=== PATIENT | female | born 1990 | race Caucasian/White ===

== ENCOUNTER 2024-06-16 19:43 | Emergency (ER) | payer OTHER, SELFPAY ==
[2024-06-16] VITALS (8 sets, daily range): BP systolic 97–131; BP diastolic 56–88; PULSE 64–100; RESP 11–18; TEMP 36.6–36.8; O2SAT 95–97; BMI 44.6
--- NOTE | 2024-06-16 19:46 | ECG_ITS ---
APPROVED REPORT Exam: Resting ECG HR:82 bpm ECG Measurements Heart Rate 82 AXES UT 162 P 55 QRSd 95 QRS 3 QT 389 T 11 QTc 428 Conclusion SINUS RHYTHM Nonspecific ST/T wave changes without acute STEMI. Electronically signed by : KEN MCKINLEY, 06/16/2024 22:42:30
--- NOTE | 2024-06-16 19:51 | CT_ITS ---
PROCEDURE INFORMATION: Exam: CT Neck With Contrast Exam date and time: 06/16/2024 9:18 PM Age: 33 years old Clinical indication: Neck pain; Additional info: Neck pain/swelling, l>r TECHNIQUE: Imaging protocol: Computed tomography of the neck with contrast. Radiation optimization: All CT scans at this facility use at least one of these dose optimization techniques: automated exposure control; mA and/or kV adjustment per patient size (includes targeted exams where dose is matched to clinical indication); or iterative reconstruction. Contrast material: ISOVUE; Contrast volume: 75 ml; Contrast route: IV; COMPARISON: CT SOFT TISSUE NECK W CON 06/16/2024 9:18 PM FINDINGS: Salivary glands: Normal. Glands are normal in size. Pharynx: Unremarkable. No significant tonsillar enlargement. Larynx: Unremarkable. Epiglottis is normal. Thyroid: 3 cm hypodense mass in the left lobe of the thyroid gland. Trachea: Visualized trachea is unremarkable. Lungs: Unremarkable as visualized. Lymph nodes: Unremarkable. No lymphadenopathy. Bones/joints: Unremarkable. No acute fracture. Soft tissues: Unremarkable. No significant soft tissue swelling. IMPRESSION: No acute findings. 3 cm hypodense mass left lobe of the thyroid gland. Recommend outpatient nonemergent ultrasound to further characterize. COMMENTS: Consistent with the [employer]'s Incidental Findings Committee white paper (J Am Audrey Radiol 2015): In patients under 35 years old with an incidental thyroid nodule equal to or greater than [address], MRI or extrathyroidal US, further evaluation with dedicated thyroid US is recommended for patients with normal life expectancy and without comorbidities. For smaller nodules without suspicious features, no further evaluation or follow up is recommended.
--- NOTE | 2024-06-16 19:51 | CT_ITS ---
PROCEDURE INFORMATION: Exam: CTA Chest With Contrast Exam date and time: 06/16/2024 9:22 PM Age: 33 years old Clinical indication: Pain; Chest pressure; Additional info: Chest pain, presyncope TECHNIQUE: Imaging protocol: Computed tomographic angiography of the chest with contrast. Exam focused on the arteries. 3D rendering (Not supervised by radiologist): MIP and/or 3D reconstructed images were created by the technologist. Radiation optimization: All CT scans at this facility use at least one of these dose optimization techniques: automated exposure control; mA and/or kV adjustment per patient size (includes targeted exams where dose is matched to clinical indication); or iterative reconstruction. Contrast material: ISOVUE; Contrast volume: 70 ml; Contrast route: INTRAVENOUS (IV); COMPARISON: CT SOFT TISSUE NECK W CON 06/16/2024 9:18 PM FINDINGS: Pulmonary arteries: Normal. No pulmonary emboli. Aorta: Unremarkable. No aortic aneurysm. No aortic dissection. Thyroid: 4.5 cm cystic left thyroid mass. Lungs: Unremarkable. No consolidation. No masses. Pleural spaces: Unremarkable. No pneumothorax. No pleural effusion. Heart: Unremarkable. No cardiomegaly. No pericardial effusion. Lymph nodes: Unremarkable. No enlarged lymph nodes. Bones/joints: Unremarkable. No acute fracture. Soft tissues: Unremarkable. IMPRESSION: No pulmonary embolus. No aortic aneurysm or dissection. COMMENTS: Consistent with the [employer]'s Incidental Findings Committee white paper (J Am Audrey Radiol 2015): In patients under 35 years old with an incidental thyroid nodule equal to or greater than [address], MRI or extrathyroidal US, further evaluation with dedicated thyroid US is recommended for patients with normal life expectancy and without comorbidities. For smaller nodules without suspicious features, no further evaluation or follow up is recommended.
--- NOTE | 2024-06-16 19:53 | ED_ITS ---
Discharge Plan Disposition Patient Disposition: Home, Self-Care Condition: Good Referrals Follow up/Referrals: Roque Clayton MD [Physician] - See instructions Provider,MD Galindo [Primary Care Provider] - See instructions Jonathan Wayne MD [Staff Physician] - See instructions Activity Restrictions/Add. Instructions Additional Instructions/Restrictions: You were evaluated in the emergency department today. Your CT scan is concerning for a mass of your thyroid gland, for which I recommend close follow- up with ENT. I have provided you with information for ENT clinic here. You will need to contact them to schedule an appointment. Your chest pain workup is reassuring at this time. I am still providing with information for cardiology to follow-up with if you continue having symptoms. Return to the emergency department right away for new or worsening symptoms. I also recommend very close follow-up with your primary care provider. Clinical Impressions Clinical Impression: Mass of thyroid gland, Chest pain Stand Alone Forms Stand Alone Forms: Work/School Release Instructions Patient Instructions: DI for Atypical Chest Pain, DI for Thyroid Nodule Print Language Print Language: Amharic Discharge ED Provider: Lilly Judd [facility] General Chief Complaint: Chest Pain Stated Complaint: Chest Pain Time Seen by Provider: 06/16/24 19:46 Mode of Arrival: Ambulatory Source of Information: Patient Limitations: No Limitations Description of Symptoms (Recalled from ER Triage Doc. by RN): pt presents with c/o intermittent chest pain that radiates into the left side of her neck and down her arm with associated tingling to fingers. Pt reports I've been having this feeling of a knot to the side of my neck for awhile now Pt reports associated dizziness and soa. Denies N/V History of Present Illness HPI narrative: This patient is a 33-year-old female with history of obesity presenting to the emergency department for evaluation with concern for left-sided neck pain and swelling, chest pain, presyncope. Patient states that she had been having swelling and pain on the left side of her neck for a little bit with some associated tingling in her fingers. She is not sure exactly how long. She notes that she has been having intermittent chest pain that she feels like the pain radiates from her neck. She was at [place] emergency department during clinical hours when she suddenly felt that she was going to pass out after experiencing some chest pain. She states that that prompted her to drive over here from [place], and she had 4 more episodes like that on the way feeling like she was going to pass out. She denies any known medical problems. No recent illnesses such as fever, cough, congestion, abdominal pain, vomiting, or other concerns. She does not take any medications or control. Related Data Allergies Allergy/AdvReac Type Severity Reaction Status Date / Time INGREDIENT: NO KNOWN - NO Allergy Unknown Uncoded 04/10/17 15:04 KNOWN DRUG ALLERGY [facility] Disclaimer: The information contained in this section may have been updated after the patient was seen, as this information can be updated by other users. Social History Smoking Status: Current every day smoker alcohol intake: never current occupational status: employed Travel in the last 8 weeks: None ROS Obtained: Yes All systems reviewed & no additional complaints except as documented Physical Exam General General appearance: alert, in no apparent distress, anxious and obese Head Head exam: atraumatic and normocephalic Eye Eye exam: Present normal appearance, PERRL and EOMI ENT ENT exam: Present normal oropharynx, mucous membranes moist and normal external ear exam Neck Neck exam: Present full ROM, trachea midline and other (palpable mass L neck. No stridor, drooling, trismus, or evidence of airway compromise. No increased work of breathing.) Chest Chest inspection: Present normal inspection and symmetric chest wall rise; Absent tenderness Respiratory Respiratory exam: Present normal lung sounds bilaterally; Absent respiratory distress, wheezes, stridor or accessory muscle use Cardiovascular Cardiovascular exam: Present regular rate and normal rhythm Abdominal Exam Abdominal exam: Present soft; Absent distention, tenderness or guarding Extremities Exam Extremities exam: Present normal inspection, full ROM and normal capillary refill; Absent tenderness or edema Back Exam Back exam: Present normal inspection and full ROM; Absent tenderness Neurological Exam Neurological exam: Present alert, oriented X3, CN II-XII intact and normal gait; Absent motor sensory deficit Psychiatric Psychiatric exam: Present anxious Skin Skin exam: Present warm and dry HEART Score HEART Score HEART Score assessment performed?: Yes History (anamnesis): Slightly suspicious ECG: Non-specific disturbance Age: <45 years Risk factors: 1-2 risk factors Troponin: </= normal limit HEART Score: 2 Critical Care Critical Care Time Critical Care Time: No Medical Decision Making Pepe Inquiry Pt receiving controlled substance: No Vital Signs Vital Signs: 06/16/24 19:44 06/16/24 20:00 06/16/24 20:30 Temperature 98.3 F Temperature Source Oral Pulse Rate 64 81 Pulse Rate [Radial] 100 H Respiratory Rate 18 16 13 Blood Pressure 124/86 113/68 Blood Pressure [Right Arm] 131/88 Blood Pressure Mean [Right Arm] 102 02 Sat by Pulse Oximetry 95 96 95 Oxygen Delivery Method Room Air Room Air Room Air 06/16/24 21:00 06/16/24 21:40 06/16/24 22:01 Temperature Temperature Source Pulse Rate 82 65 75 Pulse Rate [Radial] Respiratory Rate 16 12 Blood Pressure 113/63 97/56 L Blood Pressure [Right Arm] Blood Pressure Mean [Right Arm] 02 Sat by Pulse Oximetry 95 95 Oxygen Delivery Method Room Air Room Air 06/16/24 22:30 06/16/24 23:00 06/16/24 23:00 Temperature 97.9 F Temperature Source Pulse Rate 69 64 Pulse Rate [Radial] Respiratory Rate 11 L 11 L 12 Blood Pressure 107/69 L 114/72 114/72 Blood Pressure [Right Arm] Blood Pressure Mean [Right Arm] 02 Sat by Pulse Oximetry 96 96 Oxygen Delivery Method Room Air Room Air Room Air Lab Data Labs: Lab Results 06/16/24 19:52: WBC 6.6, RBC 4.92, Hgb 12.0 L, Hct 37.8, MCV 76.8 L, MCH 24.4 L, MCHC 31.7 L, RDW 14.0, Plt Count 325, MPV 9.0, Neut % (Auto) 55.2, Lymph % (Auto) 36.4, [place] % (Auto) 6.2, Eos % (Auto) 1.4, Baso % (Auto) 0.5, Neut # (Auto) 3.7, Lymph # (Auto) 2.4, [place] # (Auto) 0.4, Eos # (Auto) 0.1, Baso # (Auto) 0.0, ESR 101 H, Sodium 137, Potassium 3.6, Chloride 98, Carbon Dioxide 31 H, Anion Gap 11.6, BUN 15, Creatinine 0.80, Estimated Creat Clear 97, Estimated GFR 83, Est GFR ( Amer) 100, Glucose 116 H, Calcium 9.1, Total Bilirubin 0.2, AST 44 H, ALT 41, Alkaline Phosphatase 93, Troponin I < 0.01, C-Reactive Protein 14.1 H, NT-Pro-B Natriuret Pep < 20.0, Total Protein 8.3 H, Albumin 4.5, Globulin 3.8 H, Albumin/Globulin Ratio 1.2, Lipase 61, TSH 2.22, Thyroxine (T4) 11.1 H, Serum HCG, Qual Negative, HIV Ag/Ab Combo Qual Negative 06/16/24 22:00: Troponin I < 0.01 06/16/24 19:52 06/16/24 19:52 Response Orders (Tests/Meds): ED MEDICATIONS Discontinued Medications Generic Name Dose Route Start Last Admin Trade Name Freq PRN Reason Stop Dose Admin Acetaminophen 1,000 mg 06/16/24 19:52 06/16/24 20:03 Acetaminophen 1,000mg/100ml Vial IV 06/16/24 19:53 1,000 mg ONCE ONE Administration Iopamidol 145 ml 06/16/24 21:29 06/16/24 21:29 Iopamidol-370 (76%);100ml Bottle IV 06/16/24 21:30 145 ml ONCE ONE Administration Ketorolac Tromethamine 15 mg 06/16/24 19:52 06/16/24 20:03 Ketorolac 30mg/Ml Vial IV 06/16/24 19:53 15 mg ONCE ONE Administration Sodium Chloride 50 ml 06/16/24 21:29 06/16/24 21:29 0.9 % Sodium Chloride 50 Ml Vial IV 06/16/24 21:30 50 ml ONCE ONE Administration Sodium Chloride 10 ml 06/16/24 21:29 06/16/24 21:29 Sodium Chloride 0.9% 10ml Syr (Rad Only) IV 06/16/24 21:30 10 ml ONCE ONE Administration ORDERS Category Date Time Status CT angio chest PE protocol Stat Cat Scan 06/16/24 19:[address] soft tissue neck w con Stat Cat Scan 06/16/24 19:51 Completed BNP [NT Pro Brain Natriuretic Pep.] Stat Lab 06/16/24 19:52 Completed CRP [C-Reactive Protein] Stat Lab 06/16/24 19:52 Completed Complete Blood Count Auto Diff Stat Lab 06/16/24 19:52 Completed Comprehensive Metabolic Panel Stat Lab 06/16/24 19:52 Completed ESR [Erythrocyte Sedimentation Rate] Stat Lab 06/16/24 19:52 Completed HIV Combo Stat Lab 06/16/24 19:52 Completed Hepatitis C Ab Qual. W/ RFX Stat Lab 06/16/24 19:52 Received Lipase Stat Lab 06/16/24 19:52 Completed Serum [HCG Qualitative, Serum] Stat Lab 06/16/24 19:52 Completed T4 (Thyroxine) Stat Lab 06/16/24 19:52 Completed TSH [Thyroid Stimulating Hormone] Stat Lab 06/16/24 19:52 Completed Trop I [Troponin I] Stat Lab 06/16/24 19:52 Completed Troponin I Q3H Lab 06/16/24 22:00 Completed Troponin I Q3H Lab 06/17/24 02:00 Ordered ECG Data Tracing #1: Attestation: I reviewed this ECG and interpreted as documented below: ECG Narrative: Normal sinus rhythm with a ventricular rate of [address]/T wave changes without acute STEMI. Normal intervals. ECG initial impression date: 06/16/24 ECG initial impression time: 19:50 Tracing #2: Attestation: I reviewed this ECG and interpreted as documented below: ECG Narrative: Normal sinus rhythm with a ventricular rate of [address]/T wave changes not significantly changed from prior. No STEMI. ECG initial impression date: 06/16/24 ECG initial impression time: 10:05 MDM Narrative Medical Decision Narrative: In summary, this patient is a 33-year-old female presenting to the Emergency Department for evaluation of left-sided neck pain/swelling, presyncope and chest pain. Differential diagnoses considered include but are not limited to ACS, dysrhythmia, hyperthyroidism, PE, thyroid mass among others. Ruling out the most morbid conditions drove assessment. It should be noted patient's history includes obesity which is not at goal therapy. This complicates all aspects of care by increasing patient's risk for morbidity. On exam, the patient is anxious appearing. She has normal vital signs on cardiac telemetry. She has a palpable left neck mass without drooling, trismus, stridor. No evidence of airway compromise. Cardiopulmonary exam is reassuring. EKG was obtained that demonstrated nonspecific ST/T wave changes without acute STEMI. Workup included CBC, CMP, troponin, TSH, T4, lipase, CT soft tissue neck, CTA PE protocol. She was given IV Toradol and acetaminophen for symptomatic improvement. I independently interpreted CT scan prior to the radiologist read and noted left thyroid mass, no PE noted. Please see their read for final interpretation. Labs were obtained that demonstrated reassuring CBC with no significant leukocytosis, reassuring chemistry with negative troponins x 2. Thyroid studies demonstrate a T4 that is right at the upper limits of normal, normal TSH . On reassessment, patient had good improvement after administration of interventions above. She is resting comfortably with no airway compromise, normal vitals on cardiac telemetry. EKG x 2 unchanged, troponins x 2 negative. Workup today is only concerning for a newly diagnosed thyroid mass. I feel she is appropriate for discharge home with close follow-up with ENT as well as primary care. I also gave her information for cardiology follow-up given her chest pain, though it could be referred pain from this thyroid lesion causing some mass effect in her neck. I gave her very strict return precautions and she was discharged after all questions were answered.
[2024-06-16] MEDS: KETOROLAC 30MG/ML VIAL 15 MG IV (20:03)
[2024-06-16] MEDS: ACETAMINOPHEN 1,000MG/100ML VIAL 1000 MG IV (20:03)
[2024-06-16 20:24] LABS: Basophils % 0.5 % (0.1-2.0); Eosinophils # 0.1 K/mm3 (0.0-0.4); Eosinophils % 1.4 % (0.1-12.0); Hematocrit 37.8 % (37.0-47.0); Lymphocytes # 2.4 K/mm3 (0.7-4.5); Lymphocytes % 36.4 % (10-50); Mean Corpuscular HGB Conc 31.7 g/dL (31.8-35.4); Mean Corpuscular Hemoglobin 24.4 pg (27.0-31.2); Mean Corpuscular Volume 76.8 fl (81-99); Monocytes # 0.4 K/mm3 (0.1-1.0); Monocytes % 6.2 % (1.7-9.3); Neutrophils # 3.7 K/mm3 (1.8-7.8); Neutrophils % 55.2 % (37.0-80.0); Platelet Count 325 K/mm3 (142-424); Red Blood Count 4.92 M/mm3 (4.20-5.40); White Blood Count 6.6 K/mm3 (4.8-10.8)
[2024-06-16 20:33] LABS: Albumin Level 4.5 g/dl (3.5-5.0); Chloride 98 mmol/L (98-107); Potassium 3.6 mmoL/L (3.5-5.1); Sodium 137 mmol/L (136-145)
[2024-06-16 20:36] LABS: Alanine Aminotransferase 41 U/L (12-78); Albumin/Globulin Ratio 1.2 (1.1-1.8); Alkaline Phosphatase 93 U/L (38-126); Anion Gap 11.6 mEq/L (5-15); Aspartate Amino Transferase 44 U/L (14-36); Bilirubin,Total 0.2 mg/dl (0.2-1.3); Blood Urea Nitrogen 15 mg/dl (7-17); Carbon Dioxide 31 mmol/L (22.0-30.0); Creatinine Clearance Estimated 97 mL/min (50-200); Estimated Glomerular Filt Rate 83 ml/min (>60); GFR (African American) 100 ML/MIN (>60); Globulin 3.8 g/dL (1.3-3.2); Lipase 61 U/L (23-300); Total Protein,Serum 8.3 g/dl (6.3-8.2)
[2024-06-16 20:37] LABS: Calcium 9.1 mg/dl (8.4-10.2); Glucose 116 mg/dl (74-100)
[2024-06-16 20:42] LABS: C-Reactive Protein 14.1 mg/L (0-4)
[2024-06-16 20:50] LABS: NT Pro Brain Natriuretic Pep. < 20.0 pg/mL (0-125)
[2024-06-16 20:54] LABS: Troponin I < 0.01 ng/ml (0.00-0.034)
[2024-06-16 20:57] LABS: T4 (Thyroxine) 11.1 ug/dl (5.53-11.0)
[2024-06-16 21:03] LABS: HCG Qualitative, Serum Negative (Negative)
[2024-06-16 21:10] LABS: Thyroid Stimulating Hormone 2.22 uIU/mL (0.465-4.68)
[2024-06-16 21:22] LABS: HIV Combo NEGATIVE (Negative)
[2024-06-16 21:25] LABS: Erythrocyte Sedimentation Rate 101 mm/hr (0-20)
[2024-06-16] MEDS: IOPAMIDOL-370 (76%);100ML BOTTLE 145 ML IV (21:29)
[2024-06-16] MEDS: 0.9 % SODIUM CHLORIDE 50 ML VIAL IV (21:29)
[2024-06-16] MEDS: SODIUM CHLORIDE 0.9% 10ML SYR (RAD ONLY) 10 ML IV (21:29)
--- NOTE | 2024-06-16 21:52 | ECG_ITS ---
APPROVED REPORT Exam: Resting ECG HR:73 bpm ECG Measurements Heart Rate 73 AXES GA 165 P 65 QRSd 98 QRS 20 QT 408 T 8 QTc 434 Conclusion SINUS RHYTHM MODERATE T-WAVE ABNORMALITY, CONSIDER ANTERIOR ISCHEMIA [-0.1+ mV T-WAVE IN V3/V4] ABNORMAL ECG No STEMI Electronically signed by : SIRISHA SUERO, 06/17/2024 06:48:24
[2024-06-16 22:49] LABS: Troponin I < 0.01 ng/ml (0.00-0.034)
[2024-06-17 03:28] LABS: Hepatitis C Ab Qual. W/ RFX NEGATIVE (Negative)
== END 2024-06-16 23:09 | disposition home or self-care (01) ==
PROVIDERS: Emergency Provider Emergency Medicine
DX: R07.9 Chest pain, unspecified (principal); M54.2 Cervicalgia; R22.1 Localized swelling, mass and lump, neck; R55 Syncope and collapse; Z72.0 Tobacco use
CPT/HCPCS: 70491; 71275; 80053; 83690; 83880; 84436; 84443; 84484; 84703; 85025; 85651; 86140; 86803; 87389; 93005; 96374; 96375; 99285; J0131; J1885; Q9967

== ENCOUNTER 2024-06-19 16:00 | Outpatient (CLI) | payer OTHER, SELFPAY ==
[2024-06-19 20:41] LABS: Total Iron Binding Capacity 416 ug/dL (265-497)
[2024-06-19 21:08] LABS: Ferritin 50.8 ng/ml (6.24-137)
[2024-06-19 21:38] LABS: Iron 76 ug/dL (37-170)
[2024-06-19 23:05] LABS: Hemoglobin A1C 5.3 % (4.0-6.0)
== END 2024-06-19 23:59 | disposition home or self-care (01) ==
LOC: LAB.DROPOF 06-20 14:23
PROVIDERS: PCP Family Medicine; Visit Provider Family Medicine
DX: D64.9 Anemia, unspecified (principal); E07.9 Disorder of thyroid, unspecified
CPT/HCPCS: 82728; 83036; 83540; 83550

== ENCOUNTER 2024-06-25 08:20 | Outpatient (CLI) | payer OTHER, SELFPAY ==
--- NOTE | 2024-06-25 08:21 | US_ITS ---
FINAL REPORT CLINICAL HISTORY: thyroid mass - [facility] -- LT THYROID NODULE FINDINGS: Ultrasound guided thyroid biopsy. HISTORY: Left thyroid mass. Attending radiologist: Dr. Rodas Physician Lift Driver: Chad Hudson PA-C PROCEDURE: After informed consent was obtained and a time-out was performed, the patient was prepped and draped in usual sterile fashion over the left neck. Utilizing local anesthesia and sterile technique with a 25-gauge needle, access to lesion was oobtained under direct ultrasound guidance. Initially, the mass was aspirated with retrieval of approximately 10 mL of dark fluid. In addition, 4 passes were made under direct ultrasound guidance. The patient received no conscious sedation. The patient tolerated procedure well and left the department in good condition. IMPRESSION: Status post ultrasound guided biopsy of thyroid without immediate complication. Films reviewed , interpreted and dictated by Dr. Rodas. Transcribed by Chad Castano PA-C. Reviewed, Interpreted and Dictated by Sixto Rodas MD Transcribed by COLIN Charles Authenticated and [facility]
--- NOTE | 2024-06-25 08:36 | US_ITS ---
FINAL REPORT TECHNIQUE: Real-time grayscale and color ultrasound of the thyroid was performed. CLINICAL HISTORY: evaluation of mass seen on CT scan COMPARISON: CT neck 06/17/2024 FINDINGS: The right thyroid lobe is normal in size measuring 52 x 14 x 16 mm. The left thyroid lobe is significantly enlarged due to underlying mass and measures 57 x 34 x 36 mm. The isthmus measures 3 mm. The parenchyma is normal in echotexture.. Nodules: Right 7 mm isoechoic TR 3 nodule. Left predominantly cystic mass measuring 43 mm with debris and thickened septations. Although technically a TR 2 lesion, given thickened septations ultrasound directed aspiration is recommended. IMPRESSION: Dominant mass left lobe of the thyroid, likely benign but with complex features. Ultrasound directed FNA recommended. Reviewed, Interpreted and Dictated by Sixto Rodas MD Transcribed by Grecia Bernard Authenticated and . [facility]
== END 2024-06-25 23:59 | disposition home or self-care (01) ==
LOC: RAD 08:21
PROVIDERS: PCP Family Medicine; Visit Provider Family Medicine
DX: E07.9 Disorder of thyroid, unspecified (principal)
CPT/HCPCS: 76536; 76942

== ENCOUNTER 2024-07-02 07:24 | Outpatient (CLI) | payer OTHER, SELFPAY ==
--- NOTE | 2024-07-02 | CA_ITS ---
APPROVED REPORT Exam: Exercise Treadmill Technologist: Ela Tony Ht: 5 ft 7 in Wt: 277 lbs BSA: 2.32 m2 HR: 76 bpm BP: 131/80 mmHg Medical History Medical History: Smoking Allergies: Penicillin, Sulfa Cardiac Risk Factors: Smoking Stress Test Details Test: Exercise stress testing was performed using a Alonso protocol. HR Resting HR: 76 bpm Max Heart Rate (APMHR): 187 bpm Max HR Achieved: 165 bpm Target HR (85% APMHR): 159 bpm % of APMHR: 88 Recovery HR: 101 bpm BP Resting BP: 131.0/80.0 mmHg Max BP: 175.0/90.0 mmHg Recovery BP: 125.0/89.0 mmHg ECG Clinical Highest Stage Achieved: Stage 3: 3.4 mph at 14% grade. Stress ECG Conclusion Pt had no symptoms Occasional PAC, PVC <1mm ST change noted CONCLUSION No ischemia at peak stress on ECG Myoview images reported separately Electronically signed by : Allison Wayne MD 07/06/2024 20:50:38
--- NOTE | 2024-07-02 07:25 | NM_ITS ---
APPROVED REPORT Exam: Nuclear Stress Test Indication: tob use, c.p., sob, palpitations, fatigue Patient Location: Outpatient Stress Tech: Ela Tony CT Tech:Tatum Blanchard [place] (R)(N)(M) Ht: 5 ft 7 in Wt: 285 lbs Bra Size: dd HR: 76 bpm BP: 131/80 mmHg BSA: 2.35 m2 TID: 1.31 BMI: 44.6 History: tob use, c.p., sob, palpitations, fatigue Procedure: Patient exercised on Alonso protocol 6:30 minutes and sec, resting heart rate 76 bpm, resting blood pressure 131/80 mmHg, with exercise maximum heart rate achived was 170 bpm which is 90 % of the maximum predicted heart rate and blood pressure was 169/90 mmHg. Test was stopped due to fatigue. Patient denied any complaint of chest pain. Patient has fair exercise capacity, achieved 7.1 METs of workload on treadmill, the blood pressure response to exercise was normal. Cardiac Stress and Resting SPECT Images: Cardiac Stress and Resting SPECT images were obtained using technetium 99m Myoview 29.7 mCi stress and 10.24 mCi at rest. Resting and stress imaging in supine and prone positions demonstrate no evidence of fixed or reversible perfusion defects. There is increase in transient ischemic dilatation ratio (TID 1.31), suggestive of possible multivessel disease or balanced ischemia. Gated imaging demonstrates normal global and regional LV systolic function. LVEF is calculated at 56%. Conclusion: No evidence of fixed or reversible perfusion defects. There is increase in transient ischemic dilatation ratio (TID 1.31), suggestive of possible multivessel disease or balanced ischemia. Gated imaging demonstrates normal global and regional LV systolic function. LVEF is calculated at 56%. In the setting of presence of TID on nuclear stress testing, but with otherwise normal LV systolic function (and considering the patient's young age), further evaluation noninvasively with CCTA to rule out multivessel disease is suggested prior to proceeding with invasive coronary angiography. Electronically signed by : Allison Wayne MD 07/06/2024 20:15:13
[2024-07-02] MEDS: ISOTOPE MYOVIEW (PER STUDY) 1 DOSE IV (10:15)
[2024-07-02] MEDS: SODIUM CHLORIDE 0.9% 10ML SYR (RAD ONLY) 10 ML IV ×2 (10:15)
== END 2024-07-02 23:59 | disposition home or self-care (01) ==
LOC: RAD 07:25
PROVIDERS: PCP Family Medicine; Visit Provider Family Medicine
DX: R07.9 Chest pain, unspecified (principal)
CPT/HCPCS: 78452; 93017; 93018; A9502

== ENCOUNTER 2024-07-14 08:57 | Outpatient (CLI) | payer OTHER, SELFPAY ==
[2024-07-14 20:55] LABS: C-Reactive Protein 41.4 mg/L (0-4)
[2024-07-14 21:03] LABS: Free T4 (Free Thyroxine) 2.35 ng/dl (0.78-2.19)
[2024-07-14 21:19] LABS: Thyroid Stimulating Hormone 0.08 uIU/mL (0.465-4.68)
[2024-07-14 23:06] LABS: 25-OH Vitamin D, Total 30.4 ng/mL (30-100)
[2024-07-18 19:10] LABS: Rheumatoid Factor IGA < 7 U (<7)
== END 2024-07-14 23:59 | disposition home or self-care (01) ==
LOC: LAB.DROPOF 07-15 14:20
PROVIDERS: PCP Family Medicine; Visit Provider Family Medicine
DX: R53.83 Other fatigue (principal); M25.50 Pain in unspecified joint; R94.39 Abnormal result of other cardiovascular function study; E03.9 Hypothyroidism, unspecified
CPT/HCPCS: 82306; 84439; 84443; 86140; 86431

== ENCOUNTER 2024-07-16 07:28 | Outpatient (CLI) | payer OTHER, SELFPAY ==
[2024-07-16 08:00] VITALS: BP 118/68; PULSE 74; RESP 17; O2SAT 98
[2024-07-16 08:15] VITALS: BMI 43.4
[2024-07-16] MEDS: METOPROLOL TARTRATE 50MG TABLET PO (08:25)
[2024-07-16] MEDS: IVABRADINE HCL 7.5MG TABLET PO (08:25)
--- NOTE | 2024-07-16 08:30 | CT_ITS ---
APPROVED REPORT Government Relations Director: CLINICAL INDICATION Chest Pain TECHNIQUE Image Acquisition: A 128 slice MDCT scanner (grabHaloa View) was used for data acquisition. A noncontrast coronary calcium scan was performed. A CT attenuation threshold of 130 Hounsfield units (HU) was used for the detection of calcium in contiguous voxels of 1 sq mm in area to be counted as individual lesions. Bolus tracking in the ascending aorta with a threshold of 180 HU was performed. Immediately afterwards, ECG synchronized cardiac CT was then performed from the cardiac base to apex using retrospective gating with ECG tube current modulation. A total of 85 mL of Isovue 370 mg/mL contrast medium was administered at 5 mL/sec followed by a saline flush using a biphasic injection protocol. A tube voltage of 120 KVp was used. The patient received the following medications prior to the cardiac CT. 50 mg of oral metoprolol 15 mg of oral ivabradine 0.8 mg of sublingual nitroglycerin The average heart rate at the time of acquisition was 67 bpm and regular. Image Reconstruction Transaxial images were reconstructed at 0.67 mm slide thickness. Data was reviewed interactively on an advanced workstation capable of 2 and 3-dimensional displays in all conventional reconstruction formats, including multiplanar reformations, maximum intensity projections, curved multiplanar reformations, and volume rendered reconstructions. When applicable, selected routine images describing the relevant coronary anatomy and pathology were saved and sent to PACS. Complications None Technical Quality Overall image quality was good. Coronary artery opacification was adequate. Total DLP (Dose-Length Product) is 1380.4 mGy-cm. The reported value represents the total of one or more individual components during the CT acquisition of this date and at this time, and as such, the same value may appear in more than one CT report depending on the interpreting/reporting physicians. COMPARISON None FINDINGS CT Coronary Calcium Scoring LMA (Left Main Artery) = 0 LAD (Left Anterior Descending) = 0 LCX (Left Coronary Circumflex) = 0 RCA (Right Coronary Artery) = 0 Total Calcium Score = 0 using the AJ-130 method. The interpretation of the calcium heart score is based on the following continuum*: 0 = no calcified plaque detected (risk of coronary artery disease is very low ??? less than 5%) 1-10 = calcium detected in extremely minimal levels (risk of coronary diseases is still low ??? less than 10%) 11-100 = mild levels of plaque detected with certainty (mild or minimal narrowing of heart arteries is likely) 101-400 = definite,at least moderate levels of plaque detected (relatively high risk of a heart attack within 3-5 years) >401-999 = extensive levels of plaque detected (high risk of heart attack, high levels of vascular disease are present, high likelihood of at least one significant coronary narrowing) *The calcium heart score quantifies the burden of coronary calcification/plaque in the coronary arteries. The calcium heart score is not able to evaluate the presence or burden of non-calcified (i.e. soft) plaque. There is no identifiable calcification in the aortic valve, mitral annulus or mitral valve, pericardium, or myocardium. Coronary CT Angiography The coronary arterial system is right dominant. Quantitative Stenosis Grading: Left Main (LM): The left main originates normally from the left sinus of Valsalva. The LM bifurcates into the left anterior descending artery and left circumflex artery. The LM is patent with no evidence of atherosclerosis. Left Anterior Descending (LAD) and Diagonal Branches: The LAD gives off 3 diagonal branch(es). The LAD and its branches are patent with no evidence of atherosclerosis. There is no evidence of LAD-myocardial bridge. Left Circumflex (LCX) and Obtuse Marginals (OM): The LCX gives off 1 Obtuse Marginal (OM) branch(es). The LCX and its branches are patent with no evidence of atherosclerosis. Right Coronary Artery (RCA): The RCA originates normally from the right sinus of Valsalva. The RCA gives off a posterior descending artery (PDA) and posterolateral (PL) branches. The RCA and its branches are patent with no evidence of atherosclerosis. Non-Coronary Cardiac Findings: Analysis of the left ventricular (LV) structure and function was performed after 3-D reconstruction of the LV from axial images, with user-corrected automatic contouring for assessment of LV volumes and user-defined reconstruction from oblique planes for measurement of 3-D cardiac structure and function. -The left ventricle systolic function is normal. -There is no left atrial appendage filling defect. Two right pulmonary veins and two left pulmonary veins drain normally into the left atrium. -No pericardial thickening or calcification. -Central and branch pulmonary arteries in the [id number] are unremarkable. -Thoracic aorta within the visualized thoracic aortic-branches in the [id number] is unremarkable. Extracardiac Structures No significant extra-cardiac findings. Note, however, that this study is focused on the cardiac findings. IMPRESSION -Absence of coronary calcification with an Agatston score = 0 using the AJ-130 method. -No evidence of significant flow-limiting atherosclerosis of the coronary arteries. -No evidence of coronary anomalies or myocardial bridges. -CAD-RADS 0. Management recommendations per ACC/AHA guidelines*, as clinically appropriate. *Recommendations: CAD RADS 0: Reassurance. Consider non-atherosclerotic causes of chest pain. CAD RADS 1: Consider non-atherosclerotic causes of chest pain. Consider preventive therapy and risk factor modification. CAD RADS 2: Consider non-atherosclerotic causes of chest pain. Consider preventive therapy and risk factor modification, particularly for patients with nonobstructive plaque in multiple segments. CAD RADS 3: Consider further functional testing. Consider symptom-guided anti-ischemic and preventive pharmacotherapy as well as risk factor modification per published guideline statements. CAD RADS 4A: Consider further functional testing or invasive coronary angiography with revascularization per published guideline statements. Consider symptom-guided anti-ischemic and preventive pharmacotherapy as well as risk factor modification per published guideline statements. CAD RADS 4B: Invasive coronary angiography recommended with revascularization per published guideline statements. Consider symptom-guided anti-ischemic and preventive pharmacotherapy as well as risk factor modification per published guideline statements. CAD RADS 5: Consider invasive angiography and/or viability assessment with revascularization per published guideline statements. Consider symptom-guided anti-ischemic and preventive pharmacotherapy as well as risk factor modification per published guideline statements. CRITICAL RESULT None COMMUNICATION Per this written report The coronary and cardiac findings of this CCTA were reviewed, reported, and signed by Jonathan Wayne MD (Sink Cutter) Conclusion Electronically signed by : Allison Wayne MD 07/17/2024 14:42:45
[2024-07-16 08:38] LABS: Blood Urea Nitrogen 14 mg/dl (7-17); Calcium 9.7 mg/dl (8.4-10.2); Carbon Dioxide 30 mmol/L (22.0-30.0); Creatinine Clearance Estimated 111 mL/min (50-200); Estimated Glomerular Filt Rate 96 ml/min (>60); GFR (African American) 117 ML/MIN (>60); Glucose 96 mg/dl (74-100); Potassium 3.9 mmoL/L (3.5-5.1); Sodium 138 mmol/L (136-145)
[2024-07-16 09:30] VITALS: BP 123/55; PULSE 60; RESP 18; O2SAT 99
[2024-07-16] MEDS: NITROGLYCERIN 0.4MG SL TABLET SL (09:30)
[2024-07-16] MEDS: SODIUM CHLORIDE 0.9% 10ML SYR (RAD ONLY) 10 ML IV (09:32)
[2024-07-16] MEDS: 0.9 % SODIUM CHLORIDE 50 ML VIAL IV (09:32)
[2024-07-16 09:33] LABS: HCG Qualitative, Serum Negative (Negative)
[2024-07-16] MEDS: IOPAMIDOL-370 (76%);100ML BOTTLE 85 ML IV (09:33)
[2024-07-16 09:35] VITALS: BP 99/62; PULSE 61; RESP 18; O2SAT 97
[2024-07-16 09:36] LABS: Anion Gap 13.9 mEq/L (5-15); Chloride 98 mmol/L (98-107)
[2024-07-16 09:40] VITALS: BP 104/71; PULSE 62; RESP 18; O2SAT 98
[2024-07-16 09:45] VITALS: BP 123/62; PULSE 71; RESP 18; O2SAT 98
== END 2024-07-16 10:04 | disposition home or self-care (01) ==
LOC: RAD 07:29
PROVIDERS: PCP Family Medicine; Visit Provider Family Medicine
DX: R94.39 Abnormal result of other cardiovascular function study (principal)
CPT/HCPCS: 75574; 80048; 84703; Q9967

== ENCOUNTER 2024-07-21 07:47 | Outpatient (CLI) | payer OTHER, SELFPAY ==
--- NOTE | 2024-07-21 08:30 | US_ITS ---
FINAL REPORT TECHNIQUE: Ultrasound images of the thyroid were obtained. CLINICAL HISTORY: follow-up, thyroid cyst COMPARISON: 06/25/2024 FINDINGS: The right lobe of the thyroid measures 52 x 14 x 16 mm. It is normal in echogenicity. The left lobe of the thyroid measures 57 x 34 x 36 mm. It is normal in echogenicity. There is a 9 mm, oval, TR 4 nodule in the right lobe which previously measured 8 mm. There is a dominant, mixed cystic and solid mass in the left lobe measuring up to 37 mm, previously measured 43 mm. This has associated septations and debris. No new abnormality is seen. IMPRESSION: Thyroid lesions as above. Recommend 6-month follow-up ultrasound with attention to the left lobe lesion. Reviewed, Interpreted and Dictated by Sixto Rodas MD Transcribed by Trang Gonsalez Authenticated and [facility]
== END 2024-07-21 23:59 | disposition home or self-care (01) ==
LOC: RAD 07:48
PROVIDERS: PCP Family Medicine; Visit Provider Family Medicine
DX: E04.1 Nontoxic single thyroid nodule (principal)
CPT/HCPCS: 76536

== ENCOUNTER 2024-09-08 06:57 | Outpatient (CLI) | payer OTHER, SELFPAY ==
--- NOTE | 2024-09-08 07:00 | NM_ITS ---
FINAL REPORT CLINICAL HISTORY: abnormal thyroid labs, hx of nodules 7:00am 351 uci I 123 COMPARISON: None FINDINGS: Nuclear medicine thyroid 123 examination with 24-hour uptake and imaging. PROCEDURE: The patient received an oral dose of 351 uCi I-123. Imaging of the thyroid was performed at 24 hours. 24-hour uptake were performed. Thyroid imaging: The thyroid gland appears normal in size . No hot or cold nodules are identified. IMPRESSION: Unremarkable thyroid scan Thyroid uptake: 24-hour uptake 26.3%, normal IMPRESSION: Normal radio-iodine uptake within the neck Reviewed, Interpreted and Dictated by Sixto Rodas MD Transcribed by Brenda Soni Authenticated and [facility]
--- OUTSIDE RECORDS SUMMARY | 2024-09-08 07:00 | XMS_ITS | Continuity of Care Document ---
Author Organization [facility] - [place] & [place], [facility] Address [address] [place] [address] Care Team Providers Care Spa Attendant Name Role Phone RUPAL FUNES Primary Care Provider [phone] Assessment No assessment recorded. Plan of Treatment Reminders Order Date Submit Date Provider Last Modified By Organization Details Last Modified Time Details Appointments None record ed. Lab None record ed. Referral None record ed. Procedures None record ed. Surgeries None record ed. Imaging None record ed. Medication Orders None record ed. Patient TargetsNo targets recorded. Patient InstructionsNo instructions recorded. Reason for Referral None Reported. Problems Name Problem SNOMED Code Status Onset Date Resolution Date Notes Provider Name and Address Organization Details Recorded Time Abdominal pain 55929924 Active 022 Margarette Juarez marietta, MATT - [facility] - [place] & [place] 5 13:58:38 Morbid obesity 429176224 Active 025 Margarette Juarez marietta, MATT - [facility] - [place] & [place] 5 13:58:38 Pilar cyst of scalp 594179004 Active 025 Margarette Juarez marietta, [facility] [place] 5 13:58:38 Problem Notes None recorded. Procedures Surgical History Date Name Laterality Status Provider Name and Address Organization Details Recorded Time 5 Excision and closure completed Renan Hernandez MD [address], [place], [address], [place] [facility] [place] 07/14/2024 14:56:21 Imaging Results None recorded. Procedure Notes None recorded. Medical Equipment None Reported. Allergies Allergen ID Allergen Name Allergen Category Reaction Reaction Severity Criticality Documentation Date Start Date Code Code System Note Provider Name and Address Organization Details Recorded Time 254420 Product containin g penicilli n (product) medicatio n rash Not available Not available 07/10/2024 71842 8001 SNOMED MATT Olivo [facility] & [place] 15:12:49 515261 Substance with sulfonami de structure and antibacte rial mechanism of action (substanc e) medicatio n rash Not available Not available 07/10/2024 29443 8003 SNOMED MATT Olivo [facility] & [place] 15:12:54 Medications Name Sig Start Date Stop Date Status Note LastModified by Organization Details LastModified Time doxycycline hyclate 100 mg capsule 07/10 completed Not Available Not Available Not Available Vitamin B-6 25 mg tablet Take 1 tablet 3 times a day by oral route. 06/03 completed Not Available Not Available Not Available clindamycin HCl 300 mg capsule 07/10 completed Not Available Not Available Not Available azithromycin 250 mg tablet take 4 pills at once to equal 1 gram 07/24 completed Not Available Not Available Not Available fluconazole 200 mg tablet 07/10 completed Not Available Not Available Not Available metronidazol e 500 mg tablet Take 1 tablet twice a day by oral route for 7 days. 07/10 completed Not Available Not Available Not Available dicyclomine 20 mg tablet 07/10 completed Not Available Not Available Not Available cephalexin 500 mg capsule Take 1 capsule twice a day by oral route for 7 days. 07/10 completed Not Available Not Available Not Available ergocalcifer ol (vitamin D2) 1,250 mcg (50,000 unit) capsule Take 1 capsule twice a week by oral route for 91 days. 06/03 completed Not Available Not Available Not Available chlorhexidin e gluconate 4 % topical liquid 07/10 completed Not Available Not Available Not Available azithromycin 1 gram oral packet Take 1 g by oral route for 1 day. 07/10 completed Not Available Not Available Not Available azithromycin 500 mg tablet Take 1 tablet every day by oral route for 3 days. 07/10 completed Not Available Not Available Not Available nitrofuranto in monohydrate/ macrocrystal s 100 mg capsule Take 1 capsule every day by oral route for 28 days. 06/03 completed Not Available Not Available Not Available solifenacin 5 mg tablet Take 1 tablet every day by oral route. 06/03 completed Not Available Not Available Not Available GaviLyte-G 236 gram-22.74 gram-6.74 gram-5.86 gram oral solution 07/10 completed Not Available Not Available Not Available Myrbetriq 25 mg tablet,exten ded release 01/25 completed Not Available Not Available Not Available Vitamin 27 mg iron-800 mcg tablet Take 1 tablet every day by oral route. 06/03 completed Not Available Not Available Not Available Gemtesa 75 mg tablet active Not Available Not Available No t Available Antimicrobia l 0.95 % topical cleanser Apply 1 mL twice a day by topical route. 2024 active Not Available Not Available Not Avai lable Vitals Date Recorded Body height Body mass index (BMI) Body weight Heart rate Oxygen saturation Oxygen saturation in Arterial blood by Pulse oximetry Body temperature Systolic blood pressure Diastolic blood pressure Provider Name and Address Organization Details Last Updated DateTime 170.18 cm 43.3 kg/m2 287706. 93 g 84 /min 96 % 96 % 97.2 [degF] 127 mm[Hg] 67 mm[Hg] Margarette Juarez [facility] - [place] & [place] 14:17:20 Social History None recorded. Functional Status None recorded. Mental Status None recorded. Family History Relationship Description Onset Age of this Age Resolved Age Notes LastModified by Organization Details LastModified Time Father No current problems or disability Not available 07/10 15:14:07 Mother No current problems or disability [email or web address] Not available 07/10 15:14:07 Medical History No medical history recorded. Gynecological HistoryNo gynecological history recorded. Obstetrics History GPAL:G 0 P 0 0 0 0 Past Encounters Encounter ID Performer Location Encounter Start Date Encounter Closed Date Diagnosis/Indication Diagnosis SNOMED-CT Code Diagnosis ICD10 Code Diagnosis Note [id number] MD MATTHEW [facility] [address] [place] [address] 07/14/2024 13:29:28 07/14/2024 14:57:55 Epidermoid cyst of skin 335685213 L72.0 Excision. Health Concerns Section Related Observation LastModified by Organization Detai ls LastModified Time None Recorded Concern Status LastModified by Organization Details LastModified Time None Recorded Payers Encounter Date Sequence Insurance Name Policy Number Policy Gill Covered Member ID Gill Member ID Guarantor Name 07/14/2024 1 [employer] (HMO) Dorita Baker [id number] Dorita Baker Notes Date Note Type Note Provider Name and Address Organization Details Recorded Time 07/14/2024 text/html Dorita is a 33-year-old woman who complains of several cysts on her scalp and a cyst on her back. One of the cysts on her scalp was drained with a needle recently in the emergency room. The 1 under back causes pain because it is right underneath her bra. Renan Hernandez MD [address] [place] [address],[address], [place], [address], [place] - [facility] - [place] & [place] 07/14/2024 14:59:23 OBGyn Episode No OBEpisode recorded.
--- OUTSIDE RECORDS SUMMARY | 2024-09-08 07:00 | XMS_ITS | Data Portability ---
Author Organization [facility] - [place] & [place] [facility] Address [address] [place] [address] Care Team Providers Care Card Boxer Name Role Phone RUPAL FUNES Primary Care Provider [phone] Assessment No assessment recorded. Plan of Treatment Reminders Order Date Submit Date Provider Last Modified By Organization Details Last Modified Time Details Appointments None record ed. Lab None record ed. Referral None record ed. Procedures None record ed. Surgeries None record ed. Imaging None record ed. Medication Orders None record ed. Patient TargetsNo targets recorded. Patient Instructions Encounter Date Encounter Id Patient Instructions Last Modified By Organization Details Last Modified Time 07/28/2024 [id number] Follow-up in 1 week to check the area in the scalp [email or web address] Not available 07/28/2024 13:38:33 Patient seen by physician engineering inspection assistant. I have reviewed the patient's medical record, the medical decision making and treatment plan. gabriel Not available 07/28/2024 13:38:37 Reason for Referral None Reported. Problems Name Problem SNOMED Code Status Onset Date Resolution Date Notes Provider Name and Address Organization Details Recorded Time Abdominal pain 66837406 Active 022 Margarette Juarez null, [facility] [place] 5 13:58:38 Morbid obesity 372140039 Active 025 Margarette mcmanus, MATT - [facility] - [place] & [place] 5 13:58:38 Pilar cyst of scalp 277731259 Active 025 Margarette mcmanus, M[facility] - [facility] & [place] 13:58:38 Problem Notes None recorded. Procedures Surgical History Date Name Laterality Status Provider Name and Address Organization Details Recorded Time Excision and closure completed Renan Hernandez MD [address] [facility] [facility],[address], [place], [address], [facility] & [place] 07/14/2024 14:56:21 Imaging Results None recorded. Procedure Notes None recorded. Medical Equipment None Reported. Allergies Allergen ID Allergen Name Allergen Category Reaction Reaction Severity Criticality Documentation Date Start Date Code Code System Note Provider Name and Address Organization Details Recorded Time 639281 Product containin g penicilli n (product) medicatio n rash Not available Not available 07/10/2024 02648 [facility] [place] 15:12:49 764450 Substance with sulfonami de structure and antibacte rial mechanism of action (substanc e) medicatio n rash Not available Not available 07/10/2024 34021 8003 [facility] & [place] 15:12:54 Medications Name Sig Start Date Stop [...] and Address Organization Details Last Updated DateTime 5 170.18 cm 43.3 kg/m2 821813. 93 g 84 /min 96 % 96 % 97.2 [degF] 127 mm[Hg] 67 mm[Hg] Margarette Juarez [place] - [facility] - [place] & [place] 5 14:17:20 Date Recorded Body height Oxygen saturation Oxygen saturation in Arterial blood by Pulse oximetry Heart rate Body temperature Respiratory rate Systolic blood pressure Diastolic blood pressure Provider Name and Address Organization Details Last Updated DateTime 5 170.18 cm 96 % 96 % 69 /min 98.4 [degF] 16 /min 142 mm[Hg] 90 mm[Hg] Lakisha Akhtar [place] - [facility] - [place] & [place] 10:56:56 Social History None recorded. Functional Status None recorded. Mental Status None recorded. Family History Relationship Description Onset Age of this Age Resolved Age Notes LastModified by Organization Details LastModified Time Father No current problems or disability [email or web address] Not available 07/10 15:14:07 Mother No current problems or disability Not available 07/10 15:14:07 Medical History No medical history recorded. Gynecological HistoryNo gynecological history recorded. Obstetrics History GPAL:G 0 P 0 0 0 0 Past Encounters Encounter ID Performer Location Encounter Start Date Encounter Closed Date Diagnosis/Indication Diagnosis SNOMED-CT Code Diagnosis ICD10 Code Diagnosis Note [id number] MD [facility] [address] [place] [address],[facility] [address] [place] [address] 07/14/2024 13:29:28 07/14/2024 14:57:55 Epidermoid cyst of skin 024872785 L72.0 Excision. [id number] COLIN [facility] [address] [place] [address],[facility] [address] [place] [address] 07/28/2024 10:28:30 07/28/2024 11:10:34 Postoperative visit [id number] Z48.89 Health Concerns Section Related Observation LastModified by Organization Detai ls LastModified Time None Recorded Concern Status LastModified by Organization Details LastModified Time None Recorded Advance Directives Directive None Recorded Payers Insurance Date Sequence Insurance Name Policy Number Policy Gill Covered Member ID Gill Member ID Guarantor Name 08/01/2024 1 [employer] (HMO) Dorita Baker [id number] Dorita Baker Notes Date Note Type Note [...] right underneath her bra. Renan Hernandez MD [address] [place] [address],[address], [place], [address], [facility] - [facility] - [place] & [place] 07/14/2024 14:59:23 07/28/2024 text/html Dorita returns today for postop check and suture removal. She had a cyst excised from her back 07/14/2024. she has a little itching in the area. Pathology showed this to be a benign trichilemmal cyst.She has a couple of areas in her scalp that she wanted me to check as well. One was a cyst that was drained in the ER a few weeks ago and also a small bump she describes as a cyst. COLIN Lockhart [address] [facility],[address], [place], [address], [place] - [facility] - [place] & [place] 07/28/2024 13:38:47 OBGyn Episode No OBEpisode recorded.
--- OUTSIDE RECORDS SUMMARY | 2024-09-08 07:00 | XMS_ITS | Continuity of Care Document ---
Author Organization MATT [facility]ied[facility] & [place] [facility] Address [address] [place] [address] Care Team Providers Care Dehydrogenation Converter Operator Name Role Phone RUPAL FUNES Primary Care Provider [phone] Assessment No assessment recorded. Plan of Treatment [...] By Organization Details Last Modified Time 07/28/2024 [id number] Follow-up in 1 week to check the area in the scalp [email or web address] Not available 07/28/2024 13:38:33 Patient seen by physician lab assistant. I have reviewed the patient's medical record, the medical decision making and treatment plan. [email or web address] Not available 07/28/2024 13:38:37 Reason for Referral None Reported. Problems Name Problem SNOMED Code Status Onset Date Resolution Date Notes Provider Name and Address Organization Details Recorded Time Abdominal pain 93816439 Active 022 Margarette Juarez null, [place] - [facility] - [place] & [place] 5 13:58:38 Morbid obesity 807134252 Active 025 Margarette Juarez [place], [place] [facility] [place] & [place] 13:58:38 Pilar cyst of scalp 054846020 Active 025 Margarette Juarez null, [place] - [facility] - [place] & [place] 13:58:38 Problem Notes None recorded. Procedures Surgical History Date Name Laterality Status Provider Name and Address Organization Details Recorded Time Excision and closure completed Renan Hernandez MD [address] [place] [address],[address], [place], [address], [facility] & [place] 07/14/2024 14:56:21 Imaging Results None recorded. Procedure Notes None recorded. Medical Equipment None Reported. Allergies Allergen ID Allergen Name Allergen Category Reaction Reaction Severity Criticality Documentation Date Start Date Code Code System Note Provider Name and Address Organization Details Recorded Time 818246 Product containin g penicilli n (product) medicatio n rash Not available Not available 07/10/2024 05265 [facility] Margarette Juarez [facility] & [place] 15:12:49 699020 Substance with sulfonami de structure and antibacte rial mechanism of action (substanc e) medicatio n rash Not available Not available 07/10/2024 02418 8003 [facility] Margarette Juarez [facility] & [place] 15:12:54 Medications Name Sig Start Date Stop [...] Avai lable Vitals Date Recorded Body height Oxygen saturation Oxygen saturation in Arterial blood by Pulse oximetry Heart rate Body temperature Respiratory rate Systolic blood pressure Diastolic blood pressure Provider Name and Address Organization Details Last Updated DateTime 5 170.18 cm 96 % 96 % 69 /min 98.4 [degF] 16 /min 142 mm[Hg] 90 mm[Hg] Lakisha [facility] & [place] 5 10:56:56 Social History None recorded. Functional Status None recorded. Mental Status None recorded. Family History Relationship Description Onset Age of this Age Resolved Age Notes LastModified by Organization Details LastModified Time Father No current problems or disability [email or web address] Not available 07/10 15:14:07 Mother No current problems or disability [email or web address] Not available 07/10 15:14:07 Medical History No medical history recorded. Gynecological HistoryNo gynecological history recorded. Obstetrics History GPAL:G 0 P 0 0 0 0 Past Encounters Encounter ID Performer Location Encounter Start Date Encounter Closed Date Diagnosis/Indication Diagnosis SNOMED-CT Code Diagnosis ICD10 Code Diagnosis Note [id number] MD MATTHEW Weems [facility] [address] [place] [address],[address] [place] [address] 07/14/2024 13:29:28 07/14/2024 14:57:55 Epidermoid cyst of skin 985470384 L72.0 Excision. [id number] COLIN Lockhart General Surgery [address] [place] [address],[facility] [address] [place] [address] 07/28/2024 10:28:30 07/28/2024 11:10:34 Postoperative visit 243074543 Z48.89 Health Concerns Section Related Observation LastModified by Organization Detai ls LastModified Time None Recorded Concern Status LastModified by Organization Details LastModified Time None Recorded Payers Encounter Date Sequence Insurance Name Policy Number Policy Gill Covered Member ID Gill Member ID Guarantor Name 07/28/2024 1 [employer] (HMO) Dorita Baker [id number] Dorita Baker Notes Date Note Type Note Provider Name and Address Organization Details Recorded Time 07/28/2024 text/html Dorita returns today for postop [...] describes as a cyst. COLIN Lockhart [address], [place], [address], [facility] - [place] & [place] 07/28/2024 13:38:47 OBGyn Episode No OBEpisode recorded.
[2024-09-08] MEDS: ISOTOPE I 123;100 UCI TABLET 3 EACH PO (10:18)
== END 2024-09-08 23:59 | disposition home or self-care (01) ==
LOC: RAD 06:58
PROVIDERS: PCP Family Medicine; Visit Provider Family Medicine
DX: E05.90 Thyrotoxicosis, unspecified without thyrotoxic crisis or storm; R94.6 Abnormal results of thyroid function studies
CPT/HCPCS: 78014; A9516

== ENCOUNTER 2025-01-12 08:33 | Outpatient (CLI) | payer OTHER, SELFPAY ==
--- NOTE | 2025-01-12 08:30 | US_ITS ---
FINAL REPORT TECHNIQUE: Sonographic images of the thyroid gland were obtained in the longitudinal and transverse planes. CLINICAL HISTORY: goiter COMPARISON: 07/21/2024 FINDINGS: The right lobe measures 2.1 x 4.8 x 1.3 cm. Upper pole hypoechoic lesion measuring 3 mm not seen on the previous exam, TR 4. Lower pole 9 mm nodule is unchanged, likely mixed and solid, TR 3. The left lobe measures 2.2 x 1.8 x 4.9 cm. Upper pole nodule hypoechoic nodule measuring 23 mm now predominantly solid in appearance with what appear to be a few punctate calcifications. There is now a mixed cystic and solid lower pole 12 mm TR 3 nodule. A new hypoechoic 21 mm nodule in the upper pole consistent with TR 4. The isthmus measures 3 mm. This is normal. IMPRESSION: Interval decrease in size of previously seen predominantly cystic nodule in the left lobe, now appears more solid. Consider FNA per TI-RADS criteria. New TR 4 left lobe nodule. Recommend FNA per TI-RADS criteria. Other nodules as above. Recommend continued follow-up per TI-RADS criteria. Reviewed, Interpreted and Dictated by Jazmin Villasenor MD Transcribed by Grecia Bernard Authenticated and [facility]
== END 2025-01-12 23:59 | disposition home or self-care (01) ==
LOC: RAD 08:34
PROVIDERS: PCP Family Medicine; Visit Provider Student in an Organized Health Care Education/Training Program
DX: E05.20 Thyrotoxicosis with toxic multinodular goiter without thyrotoxic crisis or storm
CPT/HCPCS: 76536

== ENCOUNTER 2025-02-17 14:00 | Outpatient (CLI) | payer OTHER, SELFPAY ==
--- OUTSIDE RECORDS SUMMARY | 2025-02-17 14:30 | XMS_ITS | Data Portability ---
Author Organization MATT - [facility] - [place] & [place], [facility] Address [address] [place] [address] Care Team Providers Care Master Glazier Name Role Phone RUPAL FUNES Primary Care Provider Assessment No assessment recorded. Plan of Treatment [...] By Organization Details Last Modified Time 07/28/2024 [id number] Follow-up in 1 week to check the area in the scalp [email or web address] Not available 07/28/2024 13:38:33 Patient seen by physician trading assistant. I have reviewed the patient's medical record, the medical decision making and treatment plan. [email or web address] Not available 07/28/2024 13:38:37 Reason for Referral None Reported. Problems Name Problem SNOMED Code Status Onset Date Resolution Date Notes Provider Name and Address Organization Details Recorded Time Abdominal pain 05709196 Active 022 Margarette Juarez null, MATT - [facility] - [place] & [place] 13:58:38 Morbid obesity 814682565 Active 025 Margarette Juarez null, MATT - [facility] - [place] & [place] 13:58:38 Pilar cyst of scalp 244065152 Active 025 Margarette Juarez null, [place] - [facility] - [place] & [place] 13:58:38 Problem Notes None recorded. Procedures Surgical History Date Name Laterality Status Provider Name and Address Organization Details Recorded Time Excision and closure completed Renan Hernandez MD [address] [place] [address],[address], [place], [address], [facility] & [place] 07/14/2024 14:56:21 Imaging Results None recorded. Procedure Notes None recorded. Medical Equipment None Reported. Allergies Allergen ID Allergen Name Allergen Category Reaction Reaction Severity Criticality Documentation Date Start Date Code Code System Note Provider Name and Address Organization Details Recorded Time 512610 Product containin g penicilli n (product) medicatio n rash Not available Not available 07/10/[address] [facility] & [place] 15:12:49 135285 Substance with sulfonami de structure and antibacte rial mechanism of action (substanc e) medicatio n rash Not available Not available 07/10/2024 59859 8003 [facility] Margarette Juarez [facility] & [place] 15:12:54 Medications Name Sig Start Date Stop [...] blood by Pulse oximetry Body temperature Systolic And Diastolic Provider Name and Address Organization Details Last Updated DateTime 5 170.18 cm 43.3 kg/m2 419784. 93 g 84 /min 96 % 96 % 97.2 [degF] 127/67 mm[Hg] Margarette HAMPTON [facility] & [place] 5 14:17:20 Date Recorded Body height Oxygen saturation Oxygen saturation in Arterial blood by Pulse oximetry Heart rate Body temperature Respiratory rate Systolic And Diastolic Provider Name and Address Organization Details Last Updated DateTime 5 170.18 cm 96 % 96 % 69 /min 98.4 [degF] 16 /min 142/90 mm[Hg] Lakisha Piedra [facility] - [place] & [place] 10:56:56 Social History None recorded. Functional Status None recorded. Mental Status None recorded. Family History Relationship Description Onset Age of this Age Resolved Age Notes LastModified by Organization Details LastModified Time Father No current problems or disability [email or web address] Not available 07/10 15:14:07 Mother No current problems or disability [email or web address] Not available 07/10 15:14:07 Medical History No medical history recorded. Gynecological HistoryNo gynecological history recorded. Obstetrics History GPAL:G 0 P 0 0 0 0 Past Encounters Encounter ID Performer Location Encounter Start Date Encounter Closed Date Diagnosis/Indication Diagnosis SNOMED-CT Code Diagnosis ICD10 Code Diagnosis IMO Codes Diagnosis Note [id number] MD MATTHEW Weems [facility] Surgery [address] [place] [address] 8 07/14/2024 13:29:28 07/14/2024 14:57:55 Epidermoid cyst of skin 288036853 L72.0 [id number] Excision. [id number] COLIN Lockhart General Surgery [address] [place] [address] 8 07/28/2024 10:28:30 07/28/2024 11:10:34 Postoperative visit 729355108 Z48.89 [id number] Health Concerns Section Related Observation LastModified by Organization Detai ls LastModified Time None Recorded Concern Status LastModified by Organization Details LastModified Time None Recorded Advance Directives Directive None Recorded Payers Insurance Date Sequence Insurance Name Policy Number Policy Gill Covered Member ID Gill Member ID Guarantor Name 11/18/2024 1 [facility] Dorita Baker [id number] Dorita Baker 11/18/2024 1 [employer] (HMO) Dorita Samuel [id number] Dorita Baker Notes Date Note Type Note [...] right underneath her bra. Renan Hernandez MD [address] [place] [address],[address], [place], [address], [facility] & [place] 07/14/2024 14:59:23 07/28/2024 text/html Dorita returns today [...] she describes as a cyst. COLIN Lockhart [address] [facility],[address], [place], [address], [place] - [facility] & [place] 07/28/2024 13:38:47 OBGyn Episode No OBEpisode recorded.
--- OUTSIDE RECORDS SUMMARY | 2025-02-17 14:30 | XMS_ITS | Clinical Summary ---
Author Organization [employer] [facility] Address [address] [place] [address] Phone Care Team Providers Care Steam Box Tender Name Role Phone Karrie Dailey MD Primary Care Physician [phone] [ ] Conditions or Problems Problem Name Problem Code Onset Date Status Entry Date Provider Comment Standard Description Annotate Body mass index (BMI) 34.0-34.9; adult Z68.34 (ICD-10-CM) 08/22 Active 08/22 Ela Tazazam [facility] Body mass index [BMI] 34.0-34.9, adult Body mass index (BMI) 34.0-34.9; adult Z68.34 (ICD-10-CM) 07/16 Correctio n 07/16 Elalaverne Mcgheeazam [facility] Body mass index [BMI] 34.0-34.9, adult 11 weeks gestation of 32990169 (SNOMED CT) 08/22 In[facility] 08/22 [facility], 11 weeks ASCUS with positive high risk HPV 219494892 (SNOMED CT) 07/20 Active 07/20 Karrie Dailey MD Atypical squamous cells of undetermined significance on cervical Papanicolaou smear Body mass index (BMI) 34.0-34.9; adult Z68.34 (ICD-10-CM) 07/16 Removed 07/16 Karrie Dailey MD Body mass index [BMI] 34.0-34.9, adult Body mass index (BMI) 38.0-38.9; adult Z68.38 (ICD-10-CM) 08/07 Correctio n 08/07 Karrie Dailey MD Body mass index [BMI] 38.0-38.9, adult Less than 8 weeks gestation of 87259768 (SNOMED CT) 07/16 Inactive 07/16 Karrie Dailey MD First trimester Irregular menses 15039534 (SNOMED CT) 07/16 Active 07/16 Karrie Dailey MD Irregular periods Supervision of unspecified high-risk O09.90 (ICD-10-CM) 07/16 Inactive 07/16 Karrie Dailey MD Supervision of high risk , unspecified, unspecified trimester Therapeutic methadone use 79751138 (SNOMED CT) 07/16 Active 07/16 Karrie Dailey MD Administration of analgesic CONTRACEPTI VE MGMT Z30.40 (ICD-10-CM) 07/22 Resolved 07/27 Karrie Dailey MD Encounter for surveillance of contraceptives , unspecified STD SCREENING 718482836 (SNOMED CT) Resolved Karrie Dailey MD Venereal disease screening VAGINAL DISCHARGE 047818227 (SNOMED CT) Resolved Karrie Dailey MD Vaginal discharge IUD counseling 37632138390 102 (SNOMED CT) 08/07 Resolved 08/07 Karrie Dailey MD Counseling for intrauterine device contraception done Gynecologic al examination , routine 45492251 (SNOMED CT) 07/28 Resolved 07/28 Karrie Dailey MD Gynecologic examination TRICHOMONAS A59.01 (ICD-10-CM) Resolved Karrie Dailey MD Trichomonal vulvovaginitis Body mass index (BMI) 38.0-38.9; adult Z68.38 (ICD-10-CM) 08/07 Removed 08/07 Ela Perez CNM Body mass index [BMI] 38.0-38.9, adult Body mass index (BMI) 38.0-38.9; adult Z68.38 (ICD-10-CM) 07/28 Correctio n 07/28 Ela Perez CNM Body mass index [BMI] 38.0-38.9, adult IUD counseling [id number] 102 (SNOMED CT) 08/07 Removed 08/07 Ela Perez CNM Counseling for intrauterine device contraception done Library Circulation Technician Exam -No ABN Z01.419 (ICD-10-CM) 07/28 Inactive 07/31 Karrie Dailey MD Encounter for gynecological examination (general) (routine) without abnormal findings Body mass index (BMI) 38.0-38.9; adult Z68.38 (ICD-10-CM) 07/28 Removed 07/28 Karrie Dailey MD Body mass index [BMI] 38.0-38.9, adult Gynecologic al examination , routine 04978522 (SNOMED CT) 07/28 Removed 07/28 Karrie Dailey MD Gynecologic examination TRICHOMONAS A59.01 (ICD-10-CM) Removed Karrie Dailey MD Trichomonal vulvovaginitis Papanicolao u smear of cervix with low grade squamous intraepithe lial lesion (LGSIL) 777850744 (SNOMED CT) Active Karrie Dailey MD Abnormal cervical Papanicolaou smear VAGINAL DISCHARGE 792134719 (SNOMED CT) Removed Karrie Dailey MD Vaginal discharge Library Circulation Technician exam 86694748 (SNOMED CT) 07/22 Resolved 07/22 Karrie Dailey MD Gynecologic examination STD SCREENING 373273301 (SNOMED CT) Removed Karrie Dailey MD Venereal disease screening CONTRACEPTI VE MGMT Z30.40 (ICD-10-CM) 07/22 Removed 07/27 Karrie Dailey MD Encounter for surveillance of contraceptives , unspecified GROUP B STREPTOCOCC US CARRIER 862600946 (SNOMED CT) 09/08 Inactive 09/08 Karrie Dailye MD Streptococcus carrier HIGH RISK 71112085 (SNOMED CT) 06/10 Resolved 06/10 Karrie Dialey MD High risk Library Circulation Technician Exam -No ABN Z01.419 (ICD-10-CM) 07/22 Inactive 07/22 Karrie Dailey MD Encounter for gynecological examination (general) (routine) without abnormal findings Library Circulation Technician exam 93238496 (SNOMED CT) 07/22 Removed 07/22 Karrie Dailey MD Gynecologic examination DENTAL PAIN 131776873 (SNOMED CT) Inactive Roque Arias DMD Disorder of teeth AND/OR supporting structures GROUP B STREPTOCOCC US CARRIER 417964449 (SNOMED CT) 09/08 Removed 09/08 Karrie Dailey MD Streptococcus carrier ANEMIA WITH O99.019 (ICD-10-CM) 09/04 Inactive 09/04 Karrie Dailey MD Anemia complicating , unspecified trimester LONG-TERM (CURRENT) USE OF OTHER MEDICATIONS 576754916 (SNOMED CT) 06/10 Active 06/10 Karrie Dailey MD Long-term drug therapy Methadone maintenance TOBACCO USE DIS F17.200 (ICD-10-CM) 06/10 Active 06/10 Karrie Dailey MD Nicotine dependence, unspecified, uncomplicated History of DRUG ADDICTION 493444948 (SNOMED CT) 06/10 Active 06/10 Karrie Dailey MD Drug addict HIGH RISK 57418104 (SNOMED CT) 06/10 Removed 06/10 Karrie Dailey MD High risk Medications Medication Instructions Start Date Stop Date Generic Name NDC Provider MACROBID 100 MG CAPS TAKE 1 CAPSULE BY MOUTH 2 TIMES A DAY FOR 7DAYS NITROFURANTOIN MONOHYD MACRO [id number] Karrie Dailey MD PLUS 27-1 MG TABS TAKE 1 TABLET BY MOUTH ONCE A DAY VIT-FE FUMARATE-FA 50523707416 Karrie Dailey MD PROMETHAZINE HCL 25 MG TABS TAKE 1 TABLET BY MOUTH EVERY 8 HOURS NEEDED FOR NAUSEA PROMETHAZINE HCL 56014217753 Karrie Dailey MD PYRIDOXINE HCL 25 MG TABS TAKE 1 TABLET BY MOUTH EVERY NIGHT AT BEDTIME PYRIDOXINE HCL 14555287880 Karrie Dailey MD METRONIDAZOLE 500 MG TABS Take 1 tablet by mouth every 12 hours METRONIDAZOLE 26429621050 Ela Perez CNM FERROUS SULFATE 325 (65 Fe) MG TABS Take 1 tablet by mouth once a day FERROUS SULFATE 11287037715 Ela DELGADO VITAMIINS VITAMIINS Elalaverne DELGADO COLACE 100 MG CAPS one po B ID prn DOCUSATE SODIUM 71605057071 Elalaverne Perez CNM SPRINTEC 28 0.25-35 MG-MCG TABS Take 1 daily NORGESTIMATE-ETH ESTRADIOL 48599580314 Ela Perez CNM METRONIDAZOLE 500 MG TABS Take 1 tablet by mouth every 12 hours METRONIDAZOLE 17387881154 Karrie Dailey MD SPRINTEC 28 0.25-35 MG-MCG TABS Take 1 daily NORGESTIMATE-ETH ESTRADIOL 41899476483 Karrie Dailey MD IBUPROFEN 800 MG TABS TAKE 1 TABLET EVERY 6 HOURS NEEDED FOR PAIN IBUPROFEN 38176461118 Roque Arias DMD FERROUS SULFATE 325 (65 Fe) MG TABS Take 1 tablet by mouth once a day FERROUS SULFATE 35864457630 Karrie Dailey MD COLACE 100 MG CAPS one po B ID prn DOCUSATE SODIUM 01840025669 Karrie Dailey MD VITAMIINS VITAMIINS Karrie Dailey MD METHADONE METHADONE Karrie Dailey MD Medications Administered No information available. Allergies, Adverse Reactions, Alerts Allergy Name Reaction Description Start Date Severity Statu s Provider SULFA Critical Active Karrie kim MD PENICILLIN Critical Active Karrie jerez MD Results Date Name Value Unit Range Flag Description Clinical Summary: Preload En try for OB CHLAMYD DNA NEGATIVE Chlamydi a trachomatis DNA [Presence] in Blood by DEIDRE with probe detection QUAD SCREEN NEGATIVE quad scr een for Down Syndrome, Trisomy-18, and Spina Bifida, maternal serum CF PRNTL SCR NEGATIVE cystic fibrosis, screen GC DNA PROBE NEGATIVE Neisser ia gonorrhoeae DNA [Presence] in Cervical mucus by DEIDRE with probe detection HIV AB NEGATIVE HIV 1 p23 Ab [Presence] in Serum by Immunoblot URINE CULT NO GROWTH Bacteria identified in Urine by Culture RPR NON REACTIVE Reagin A b [Units/volume] in Serum by VDRL ANTIBODY SCR NEGATIVE antibod y screen, serum RH TYPE POSITVE Rh antigen Lab Report: GLUCOSE TOLERANC E TEST, GEST, 3 SPEC (75G), CBC (INCLUDES DI ... RPR TITER NON-REACTIVE NON-REACTI N rap id plasma reagin antibody titer Office Visit: OB Visit RM 11 * ok to sign!!! SPEC GR URIN 1.020 Specific gravity of Urine by Test strip PH URINE 7.0 pH of Urine by Test strip PREG TST URN positive beta HC G, urine, semiquantitative HSV GENITAL no Herpes si mplex virus identified in Genital specimen by Organism specific culture Lab Report: OBSTETRIC PANEL, OBSTETRIC PANEL, OBSTETRIC PANEL, OBSTETRIC ... HEP C AB NON-REACTIVE NON-REACTI N Hepa titis C virus Ab [Presence] in Serum HBSAG NON-REACTIVE NON-REACTI N Hepat itis B virus surface Ag [Presence] in Serum or Plasma by Confirmatory method ABO/RH RH(D) POSITIVE blood type with RH factor ABO BLD GRP O ABO blood group BASO % MANU 0.3 % N basophils as percent of blood leukocytes, manual count EOS % MANU 0.3 % N eosinophil s as percent of blood leukocytes, manual count MONOCYTE % 6.7 % N Monocytes/ 100 leukocytes in Blood by Automated count LYMPH% P BLD 24.4 % N lymphocy neri as percent of blood leukocytes PMN % 68.3 % N Neutrophils/1 00 leukocytes in Blood by Automated count ABS BASOS 27 {Cells}/u L 0-200 N Basophils [#/volume] in Blood ABS EOS 27 {Cells}/u L 15-500 N Eosinophils [#/volume] in Blood ABS MONOS 596 {Cells}/u L 200-950 N Monocytes [#/volume] in Blood ABSLYMPHCT 2172 {Cells}/u L 850-3900 N Lymphocytes [#/volume] in Blood ABS NEUTROPH 6079 CELLS/UL 10*3/uL 4849-4519 N Neutrophils [#/volume] in Blood MPV 10.9 fL 7.5-12.5 N Platelet li n volume [Entitic volume] in Blood by Nancy PLATELETK/UL 283 THOUSAND/UL 10*3/uL 140-400 N platelet count RDW 13.3 % 11.0-15.0 N Erythrocyte distribution width [Ratio] by Automated count OL-MCHC 33.3 g/dL 32.0-36.0 N mean corpus cular hemoglobin concentration, rbc MCH 25.9 pg 27.0-33.0 L MCH [Entiti c mass] by Automated count MCV 77.7 fL 80.0-100.0 L MCV [Entit ic volume] by Automated count HCT 38.7 % 35.0-45.0 N Hematocrit [Volume Fraction] of Blood by Automated count HGB 12.9 g/dL 11.7-15.5 N Hemoglobin [Mass/volume] in Blood RBC M/UL 4.98 MILLION/UL 10*6/uL 3.80-5.10 N red blood count WBC CT BLOOD 8.9 10*3/uL 3.8-10.8 N leukocy te count, blood Lab Report: THINPREP TIS PAP AND HPV mRNA E6/E7, CHLAMYDIA/N.GONORRHOEAE ... HPV RESULT Detected Not Detect A Human papilloma virus identified in Specimen Office Visit: OB Visit Rm 11 GLUCOSE, URN negative Glucose [Mass/volume] in Urine by Test strip BILIRUBIN UR negative Bilirub in.total [Presence] in Urine by Test strip KETONES URN negative Ketones [Mass/volume] in Urine by Test strip BLOOD UR DIP negative blood i n urine (hemoglobin) by dipstick PROTEIN, URN negative protein , urine, semiquantitative (dipstick) UROBILINOGEN negative Urobili nogen [Presence] in Urine by Test strip NITRITE URN negative Nitrite [Presence] in Urine by Test strip WBC DIPSTK U negative Leukocy te esterase [Presence] in Urine by Test strip Plan of Care Type Date Detail Pending order Urine Dip Auto 8 1003 Pending order Ultrasound Pending Order exclud ed from report: Pending order Hemoglobin 63745 Pending order Test 8 1025 Pending order Urine Dip Auto 8 1003 Pending order ThinPrep Pap w r eflex HR HPV/GC/Chlamydia mRNA E6/E7 Pending order ThinPrep Pap w r eflex HR HPV/GC/Chlamydia mRNA E6/E7 Pending Order exclud ed from report: Pending order Test 8 1025 Pending order BV Yeast Trich C ulture (Affirm) Pending order ThinPrep Pap w r eflex HR HPV/GC/Chlamydia mRNA E6/E7 Pending order Urine Dip Auto 8 1003 Pending order ThinPrep Pap w r eflex HR HPV/GC/Chlamydia mRNA E6/E7 Pending order Test 8 1025 Pending order Medication Recon ciliation Pending order Urine Culture Pending order SNOMED-CT: 84942 [id number] Current Medications Documented Pending order Urine Dip Auto 8 1003 Pending order Urine Culture Pending order Ultrasound Pending order Urine Dip Manual 73699 Pending order Hemoglobin 54228 Pending order G.C. Chlamydia ( lab order) Pending order Group B Strep Pending order Urine Culture Pending order NST with DELANEY 2 W eekly to Delivery Pending order Urine Dip Auto 8 1003 Pending order TDaP age 7 yrs o r older Pending order IMADM >18YR IM R OUTE 1ST VAC/TOXOID Pending order IMADM >18YR IM R OUTE EA ADDL VAC/TOXOID Pending order Ultrasound Pending order CBC with diff (O utside Lab) Pending order RPR (Outside Lab ) Pending order GTT 3 Specimen Pending order Urine Dip Auto 8 1003 Pending order Urine Dip Auto 8 1003 Pending order Ultrasound Pending order Test 8 1025 Pending order Urine Dip Auto 8 1003 Pending order GC & Chlamydia Patient education Medications Patient education Medications Patient education Patient Educat ion Given Patient education Medications Patient education Medications Patient education Patient Educat ion Given Patient education Medications Patient education Medications Patient education Patient Educat ion Given Patient education Patient Educat ion Given Patient education Medications Patient education Medications Procedures Code Procedure Name Date Entry Date CPT-3075F Most recent systolic blood pressure 130-1 39 mm Hg CPT-3079F Most recent diastolic blood pressure 80-8 9 mm Hg CPT-59132 Urine Dip Auto 72246 OB US GEN Ultrasound CPT-90118 Hemoglobin 21154 CPT-56226 Test 81137 CPT-35595 Urine Dip Auto 59668 CPT-3074F Most recent systolic blood pressure <130 mm Hg CPT-3078F Most recent diastoli c blood pressure <80 mm Hg [facility]-[id number] Giving encouragement to exercise [facility] 14970 T1 Urine Drug Screen w/o Confirmation 201 11/23/25 [facility] 8472 T1 Hep C Ab [facility] 78203 T1 HIV 1/2 Ag & Ab 4 th gen -consent required [facility] 57430 T1 ThinPrep w HR HPV /GC/Chlamydia mRNA E6/E7 [facility] 395 T1 Urine Culture [facility] 01019 T1 Panel (Obstetric Panel) 07/16 [facility]-[id number] Medication Reconciliation CPT-3074F Most recent systolic blood pressure <130 mm Hg CPT-3079F Most recent diastoli c blood pressure 80-89 mm Hg 84704 [facility] # BV Yeast Trich Culture (Affirm) 201 10/24/06 8472 [facility] # Hep C Ab 93350 [facility] # HIV 1/2 Antigen & An tibodies -consent required 27512 [facility] # RPR w/ reflex to titer & confirmati on CPT-3074F Most recent systolic blood pressure <130 mm Hg CPT-3079F Most recent diastoli c blood pressure 80-89 mm Hg 53605 [facility] # GC & Chlamydia SCT-[id number] Medication Reconciliation [facility] 12211 ThinPrep Pap w refle x HR HPV/GC/Chlamydia mRNA E6/E7 [facility]-[id number] SNOMED-CT: 496081999 222426 Current Medications Documented SCT-[id number] Medication Reconciliation CPT-85712 Test 27145 SCT-[id number] SNOMED-CT: 890236553 870323 Current Medications Documented 86863 [facility] # BV Yeast Trich Culture (Affirm) 201 09/30/02 [facility] 93187 ThinPrep Pap w refle x HR HPV/GC/Chlamydia mRNA E6/E7 CPT-92422 Urine Dip Auto 87900 CPT-90054 Test 19825 SCT-[id number] Medication Reconciliation SCT-[id number] SNOMED-CT: 549068024 242599 Current Medications Documented [facility]# 25680 ThinPrep Pap w refle x HR HPV/GC/Chlamydia mRNA E6/E7 395 [facility] # Urine Culture CPT-37106 Urine Dip Auto 95919 395 [facility] # Urine Culture OB US GEN Ultrasound CPT-40395 Urine Dip Manual 70873 09/04 CPT-50510 Hemoglobin 53104 5617 [facility] # Group B Strep 5 17933 [facility] # G.C. Chlamydia (lab order) 395 [facility] # Urine Culture NST DELANEY 2W D NST with DELANEY 2 Weekly to Delivery CPT-03923 IMADM >18YR IM ROUTE 1ST VAC/TOXOID 08/14 CPT-70934 Urine Dip Auto 02484 CPT-27054 TDaP age 7 yrs or older 2013 CPT-01277 IMADM >18YR IM ROUTE EA ADDL VAC/TOXOID 2 OB US GEN Ultrasound CPT-53479 Urine Dip Auto 16297 CPT-09115 RPR (Outside Lab) [facility] 37417 GTT 3 Specimen CPT-13060 CBC with diff (Outside Lab) CPT-21475 Urine Dip Auto 25010 OB US GEN Ultrasound 17212 [facility] # GC & Chlamydia CPT-70477 Test 28241 CPT-59314 Urine Dip Auto 50280 Vital Signs Date Name Value Unit Description BMI (Body Mass Index) 34.64 kg/m2 Bod y Mass Index (Ratio) BP Diastolic 83 mm[Hg] blood pressu re, diastolic BP Systolic 131 mm[Hg] blood pressur e, systolic BSA (Body Surface Area) 2.18 b jayson surface area Heart Rate 85 /min pulse rate Height 67 [in_us] height E&M Height 170.18 cm height in cent imeters E&M Weight Measured 220.4 [lb_av] weight E& M Weight Measured 220.4 [lb_av] weight E& M Weight Measured 100.18 kg weight in kilograms E&M Body Temperature 98.5 [degF] temperat ure E&M Body Temperature 36.9 Aishwarya temperat ure in centigrade E&M Immunizations Vaccine Administration Date Standard Description CVX Co de Dose tdap vax 115 0.0 Advance Directives No information available.
--- OUTSIDE RECORDS SUMMARY | 2025-02-17 14:30 | XMS_ITS | Data Portability ---
Author Organization Pending sale to [facility] Address [address] [place] [address] Assessment Encounter Date Assessment Date Assessment LastModified by Organization Details LastModified Time 07/14/2022 07/14/2022 -take abx for acute uti -get US when finished with Abx -rtc in 2wks to recheck urine, review US, do pvr/cath exam. -discussed likely multimodal approach with bladder health supplements, possible short term course of daily antibiotics, and medication therapy for her incontinence. she verbalized understanding. 30 min spent in prep, face to face, and in coordination of care. [email or web address] Not available 07/14/2022 14:11:12 07/28/2022 07/28/2022 -finish macrobid as rx BID -PCR urine pending. -once done with macrobid BID start on macrobid daily x 30 days -start uqora samples- gave month of samples -start myrbetriq 25mg daily for OAB/UUI. -referred to PFPT. -comprehensive labs ordered. -continue fu as scheduled with cardio -fu with us in 4wks. sooner if recurrence of UTI symptoms. -discussed likely multimodal approach with bladder health supplements, possible short term course of daily antibiotics, and medication therapy for her incontinence as well as PFPT. she verbalized understanding. 60 min spent in prep, face to face, and in coordination of care. [email or web address] Not available 07/28/2022 09:29:18 01/10/2023 01/10/2023 -ucx pending -start myrbetriq 25mg daily for OAB/UUI. -referred to PFPT. -comprehensive labs ordered. -continue fu as scheduled with cardio -needs to see PROFESSOR OF FRENCH too -discussed likely multimodal approach with bladder health supplements, possible short term course of daily antibiotics, and medication therapy for her incontinence as well as PFPT. she verbalized understanding. 60 min spent in prep, face to face, and in coordination of care. Reproductive life plan discussed. Patient does plan to have children in the future. control offered. Patient declined. Number of sexual partners: _reports zero recent Not available 01/17/2023 11:27:51 07/25/2023 07/25/2023 -ucx pending -start gemtesa 75mg daily for OAB/UUI. -try online [employer] [facility] PFPT. encouraged weight loss. -continue fu as scheduled with cardio -needs to see PROFESSOR OF FRENCH for annual and establish PCP -discussed likely multimodal approach with bladder health supplements, possible short term course of daily antibiotics, and medication therapy for her incontinence as well as PFPT. she verbalized understanding. -start dmannose, vitamin C -start daily macrobid 100mg x 3 months when finished with acute course. referred to urogyn per pt request. would be interested in bladder sling eventually when shes done having children but in the meantime would like to consider urethral bulking.. followup 3 months. compliance is an issue as well as followup. Reproductive life plan discussed. Patient does plan to have children in the future. control offered. Patient declined. Number of sexual partners: _1 Patient is having unprotected sex. Domestic abuse counseling done. [facility] for domestic abuse centers posted in patient waiting rooms and bathrooms. 50 min spent in prep, face to face, and in coordination of care. Not available 11/01/2023 16:59:05 Plan of Treatment Reminders Order Date Submit Date Provider Last Modified By Organization Details Last Modified Time Details Appointments Establish ed Patient 20 2024 09:20A M Reid Adam APRN Not available Not available Not available Lab chlamydia trachomat is + neisseria gonorrhoe ae + trichomon as vaginalis DNA panel, DEIDRE+probe , urine 2023 024 [facility], [facility] [place] [address] Rd, [address], [place], [address], 07/28/2023 14:11:12 urinalysi s, dipstick [address], [address] [place], [address], 07/25/2023 09:32:31 culture, urine 2023 024 ADRIENNE [facility], [address], [address], [place], [address], 07/28/2023 14:11:13 urinalysi s, dipstick [address], [address] [place], [address], 01/10/2023 10:42:26 CBC w/ auto diff 2022 023 ADRIENNE [facility], [address], [address], [place], [address], 01/16/2023 10:12:06 unlisted lab - CT/GC/TV DEIDRE+M genitaliu m ur. 2022 023 AD[facility], [address], [address], [place], [address], 01/16/2023 10:12:08 culture, urine 2022 023 AD[facility]NE [facility], [address], [address], [place], [address], 01/16/2023 10:12:11 ESR (erythroc yte sedimenta tion rate), blood 2022 023 AD[facility], [address], [address], [place], [address], 01/16/2023 10:12:10 C reactive protein, QN, serum or plasma 2022 023 ADRIENNE [facility], [address], [address], [place], [address], 01/16/2023 10:12:10 vitamin D, 25-hydrox y, total, serum 2022 023 AD[facility]NE [facility], [address], [address], [place], [address], 01/16/2023 10:12:09 CMP, serum or plasma 2022 023 AD[facility], [address], [address], [place], [address], 01/16/2023 10:12:07 urinalysi s, dipstick [address] [facility], [address] [place] [address], [address], 07/28/2022 09:21:00 HbA1c (hemoglob in A1c), blood 2022 023 AD[facility]NE [facility], [address], [address], [place], [address], 07/31/2022 16:12:16 lipid panel, serum 2022 023 AD[facility], [address], [address], [place], [address], 07/31/2022 16:12:13 TSH + free T4, serum 2022 023 AD[facility], [address], [address], [place], [address], 07/31/2022 16:12:11 insulin, serum 2022 023 AD[facility]NE [facility], [address], [address], [place], [address], 07/31/2022 16:12:20 CBC w/ auto diff 2022 023 AD[facility], [address], [address], [place], [address], 07/31/2022 16:12:12 vitamin D, 25-hydrox y, total, serum 2022 023 [facility], [address], [address], [place], [address], 07/31/2022 16:12:17 vitamin B12 + folate, serum or blood 2022 023 AD[facility], [address], [address], [place], [address], 07/31/2022 16:12:15 CMP, serum or plasma 2022 023 [facility], [address], [address], [place], [address], 07/31/2022 16:12:13 iron + total iron-bind ing capacity (TIBC), serum 2022 023 [facility], [address], [address], [place], [address], 07/31/2022 16:12:14 thyropero xidase Ab, serum 2022 023 [facility], [address], [address], [place], [address], 07/31/2022 16:12:19 vaginal pathogens panel, DEIDRE+probe , vaginal fluid 2022 023 [facility], [address], [address], [place], [address], 07/31/2022 08:08:57 ccp (cyclic citrullin ated peptide) iga+igg, serum 2022 023 [facility], [address], [address], [place], [address], 07/31/2022 16:12:17 tata maradiaga virus Ab panel, serum 2022 023 AD[facility], [address], [address], [place], [address], 07/31/2022 16:12:15 ESR (erythroc yte sedimenta tion rate), blood 2022 023 AD[facility], [address], [address], [place], [address], 07/31/2022 16:12:18 C reactive protein, QN, serum or plasma 2022 023 AD[facility]ENNE [facility], [address], [address], [place], [address], 07/31/2022 16:12:20 ALEXUS (antinucl ear antibodie s) screen, serum 2022 023 AD[facility]ENNE [facility], [address], [address], [place], [address], 07/31/2022 16:12:18 culture, urine 2022 023 AD[facility], [address], [address], [place], [address], 07/18/2022 16:13:17 urinalysi s, dipstick [address] [facility], [address] [place] [address], [address], 07/14/2022 13:32:36 Referral general surgeon referral 2024 025 ADRIENNE Not available 09/04/2024 14:53:21 gynecolog ist referral - annual 2023 024 [email or web address] Not available 09/27/2023 13:57:47 gynecolog ist referral 2022 023 [email or web address] Not available 03/01/2023 16:59:22 pelvic floor therapy referral - MIGUEL/OAB. PFPT eval and treat. [address] [facility], [address], [place], [address], 05/08/2024 13:33:20 pelvic floor therapy referral - PFPT, overactiv e bladder and mixed urinary incontine nce. evaluate and treat. 2022 023 [facility], [address], [place], [address], 03/25/2023 05:01:49 Procedures None recorded. Surgeries None recorded. Imaging US, retroperi toneum, complete - pre/pvr 2023 024 Not available 12/10/2023 10:16:04 US, retroperi toneum, complete - pre/pvr 2022 023 [email or web address], [address] [place] [address] , [place], [address], 07/28/2022 16:34:42 Medication Orders cephalexi n 500 mg capsule 2024 025 [facility] [id number], [address] [facility] , [place], [address], 06/03/2024 08:54:46 Antimicro bial 0.95 % topical cleanser 2024 025 [facility] [id number], [address] [place] [address] , [place], [address], 06/03/2024 08:54:47 cephalexi n 500 mg capsule 2023 024 [facility] [id number], [address] [facility] [facility] , [place], [address], 07/25/2023 09:32:37 Macrobid 100 mg capsule 2023 025 [facility] [id number], [address] [facility] , [place], [address], 06/03/2024 08:24:13 Gemtesa 75 mg tablet [address] [facility] [id number], [address] [facility] , [place], [address], 06/03/2024 08:24:04 Gemtesa 75 mg tablet 2023 025 ADRIENNE [facility] [id number], [address] , [place], [address], 06/03/2024 08:24:06 Myrbetriq 25 mg tablet,ex tended release 2022 023 Not available 01/25/2023 14:15:01 Myrbetriq 25 mg tablet,ex tended release 2022 023 [email or web address] [facility] [id number], [address] [facility] , [place], [address], 01/25/2023 14:15:01 nitrofura ntoin monohydra te/macroc rystals 100 mg capsule [address] [facility] [id number], [address] [facility] , [place], [address], 06/03/2024 08:24:10 Myrbetriq 25 mg tablet,ex tended release 2022 023 Not available 01/25/2023 14:15:01 Myrbetriq 25 mg tablet,ex tended release 2022 023 [email or web address] [facility] [id number], [address] [facility] , [place], [address], 01/25/2023 14:15:01 Macrobid 100 mg capsule [address] [facility] [id number], [address] [facility] , [place], [address], 06/03/2024 08:24:10 Patient TargetsNo targets recorded. Patient Instructions Encounter Date Encounter Id Patient Instructions Last Modified By Organization Details Last Modified Time 07/14/2022 [id number] medical record request* - send all urine cultures over last year and any imaging. [email or web address] Not available 08/24/2022 09:43:06 medical record request* - send all urine cultures. [email or web address] Not available 08/24/2022 09:43:33 07/28/2022 [id number] body mass index: care instructions Not available 07/28/2022 09:20:58 learning about healthy weight Not available 07/28/2022 09:20:59 Urge Incontinence: Care Instructions Not available 07/28/2022 09:30:25 Stress Incontinence: Care Instructions Not available 07/28/2022 09:30:25 kegel exercises: care instructions Not available 07/28/2022 09:30:25 Starting a Weight-Loss Plan: Care Instructions Not available 07/28/2022 09:30:37 01/10/2023 [id number] body mass index: care instructions Not available 01/10/2023 10:42:25 learning about healthy weight Not available 01/10/2023 10:42:26 Urge Incontinence: Care Instructions Not available 01/10/2023 10:42:25 Stress Incontinence: Care Instructions Not available 01/10/2023 10:42:26 kegel exercises: care instructions Not available 01/10/2023 10:42:26 Starting a Weight-Loss Plan: Care Instructions Not available 01/10/2023 10:42:25 07/25/2023 [id number] exposure to sexually transmitted infections: care instructions Not available 07/25/2023 09:32:25 body mass index: care instructions Not available 07/25/2023 09:32:25 learning about healthy weight Not available 07/25/2023 09:32:26 Urge Incontinence: Care Instructions Not available 07/25/2023 09:32:26 Stress Incontinence: Care Instructions Not available 07/25/2023 09:32:25 kegel exercises: care instructions Not available 07/25/2023 09:32:25 Starting a Weight-Loss Plan: Care Instructions Not available 07/25/2023 09:32:25 06/03/2024 [id number] body mass index: care instructions [email or web address] Not available 06/03/2024 08:54:40 learning about healthy weight [email or web address] Not available 06/03/2024 08:54:40 I have seen and examined the patient and agree with the plan of care. - Dr. Lis [email or web address] Not available 06/03/2024 15:29:31 Reason for Referral Pelvic Floor Therapy Referra l for Mixed urinary incontinence PFPT, overactive bladder and mixed urinary incontinence. evaluate and treat. Referring Physician: Anita Rangel [facility], Encounter Date: 07/28/2022 [employer] Professor Referral for Sc reening for malignant neoplasm of cervix Referring Physician: Anita Rangel [facility], Encounter Date: 01/10/2023 Pelvic Floor Therapy Referra l for Mixed urinary incontinence MIGUEL/OAB. PFPT eval and treat. Referring Physician: Anita Rangel [facility], Encounter Date: 01/10/2023 [employer] Professor Referral for Sc reening for malignant neoplasm of cervix annual Referring Physician: Anita Rangel [facility], Encounter Date: 07/25/2023 General Surgeon Referral for Pilar cyst of scalp Referring Physician: Lizzette Pascual [facility], Encounter Date: 06/03/2024 Results Created Date Observation Date Name Description Value Unit Range Abnormal Flag Note LastModifiedBy Organization Detail LastModifiedTime 07/15/1907/18/2022 URINE CULTU RE,CO MPREH ENSIV E urine culture,comp rehensive FINAL REPORT abnormal Not Available [facility] ([facility]) [address], [place], [address], 07/18/2022 16:13:17 07/15/1907/18/2022 URINE CULTU RE,CO MPREH ENSIV E result 1 ENTERO COCCUS FAECAL IS abnormal For Enter ococc us speci es, amino glyco sides (exce pt for high- level resis tance katarina lawton) , cepha lospo rins, clind amyci n, and trime thopr im-solano lfame thoxa zole are not effec tive clini chloe . (CLSI , M100- S26, 2016) 10,00 0-25, 000 colon y formi ng units per mL Note: this isola te is vanco mycin -susc eptib le. This infor matio n is provi ded for epide miolo gic purpo ses only: vanco mycin is not among the antib iotic s recom belinda d for thera py of urina ry tract infec tions cause d by Enter ococc us. Not Available [facility] ([facility]) [address], [place], [address], 07/18/2022 16:13:17 07/15/1907/18/2022 URINE CULTU RE,CO MPREH ENSIV E antimicrobia l susceptibili ty COMMEN T S = Susce ptibl e; I = Inter media te; R = Resis tant P = Posit geremias; N = Negat geremias MICS are expre ssed in micro grams per mL Antib iotic RSLT# 1 RSLT# 2 RSLT# 3 RSLT# 4 Cipro floxa ankur S Levof loxac in S Nitro furan toin S Penic illin S Tetra cycli ne S Vanco mycin S Not Available [facility] ([facility]) [address], [place], [address], 07/18/2022 16:13:17 07/15/1907/14/2022 urina lysis , dipst ick Leukocytes Large Not Available [facility] [address], [place], [address], 07/14/2022 09:52:12 07/15/1907/14/2022 urina lysis , dipst ick Nitrite negati ve Not Available [facility] [address] [place], [address], 07/14/2022 09:52:12 07/15/19 23 07/14/2022 urina lysis , dipst ick Urobilinogen 1 Not Available [facility] [address] [place], [address], 07/14/2022 09:52:12 07/15/19 23 07/14/2022 urina lysis , dipst ick Protein 30 Not Available [facility] [address] [place], [address], 07/14/2022 09:52:12 07/15/19 23 07/14/2022 urina lysis , dipst ick pH 7.0 Not Available [facility] [address] [place], [address], 07/14/2022 09:52:12 07/15/19 23 07/14/2022 urina lysis , dipst ick Blood Negati ve Not Available [facility] [address] [place], [address], 07/14/2022 09:52:12 07/15/19 23 07/14/2022 urina lysis , dipst ick Specific [place] 1.025 Not Available [facility] [address] [place], [address], 07/14/2022 09:52:12 07/15/19 23 07/14/2022 urina lysis , dipst ick Ketone Negati ve Not Available [facility] [address] [place], [address], 07/14/2022 09:52:12 07/15/19 23 07/14/2022 urina lysis , dipst ick Bilirubin Negati ve Not Available [facility] [address] [place], [address], 07/14/2022 09:52:12 07/15/19 23 07/14/2022 urina lysis , dipst ick Glucose Negati ve Not Available [facility] [address] [place], [address], 07/14/2022 09:52:12 07/15/19 23 07/14/2022 urina lysis , dipst ick Appearance Cloudy Not Available [facility] [address] [place], [address], 07/14/2022 09:52:12 07/15/19 23 07/14/2022 urina lysis , dipst ick Color [place] Not Available [facility] [address] [place], [address], 07/14/2022 09:52:12 07/29/19 23 07/30/2022 NUSWA B VAGIN ITIS PLUS (VG+) atopobium vaginae High - 2 score abnormal Not Available [facility] ([facility]) [address] [place], [address], 07/31/2022 08:08:57 07/29/19 23 07/30/2022 NUSWA B VAGIN ITIS PLUS (VG+) bvab 2 High - 2 score abnormal Not Available [facility] ([facility]) [address] [place], [address], 07/31/2022 08:08:57 07/29/19 23 07/30/2022 NUSWA B VAGIN ITIS PLUS (VG+) megasphaera 1 High - 2 score abnormal Calcu late total score by inés edwards the 3 indiv idual bacte rial vagin osis (BV) marke r score s toget her. Total score is inter prete d as follo ws: Total score 0-1: Indic ates the absen ce of BV. Total score 2: Indet ermin ate for BV. Addit ional clini darien data shoul d be evalu ated to estab karina a diagn osis. Total score 3-6: Indic ates the prese nce of BV. This test was devel oped and its perfo rmanc e elías cteri stics deter mined by [facility]. It has not been clear ed or appro maria d by the Food and Drug Admin istra tion. Not Available [facility] ([facility]) [address] [place], [address], 07/31/2022 08:08:57 07/29/19 23 07/30/2022 NUA B VAGIN ITIS PLUS (VG+) selina albicans, DEIDRE Negati ve negati ve Not Available [facility] ([facility]) [address] [place], [address], 07/31/2022 08:08:57 07/29/19 23 07/30/2022 NUSWA B VAGIN ITIS PLUS (VG+) selina glabrata, DEIDRE Negati ve negati ve Not Available [facility] ([facility]) [address] [place], [address], 07/31/2022 08:08:57 07/29/19 23 07/31/2022 NUSWA B VAGIN ITIS PLUS (VG+) trich vag by DEIDRE Negati ve negati ve Not Available [facility] ([facility]) [address] [place], [address], 07/31/2022 08:08:57 07/29/19 23 07/31/2022 NUSWA B VAGIN ITIS PLUS (VG+) chlamydia trachomatis, DEIDRE Negati ve negati ve Not Available [facility] ([facility]) [address] [place], [address], 07/31/2022 08:08:57 07/29/19 23 07/31/2022 NUSWA B VAGIN ITIS PLUS (VG+) neisseria gonorrhoeae, DEIDRE Negati ve negati ve Not Available [facility] ([facility]) [address], [place], [address], 07/31/2022 08:08:57 07/29/19 23 07/29/2022 TSH+F REE T4 TSH 1.470 uIU/m L 0.450- 4.500 Not Available [facility] ([facility]) [address] [place], [address], 07/31/2022 16:12:11 07/29/19 23 07/29/2022 TSH+F REE T4 T4,free(dire ct) 1.36 NG/dL 0.82-1 .77 Not Available [facility] ([facility]) [address] [place], [address], 07/31/2022 16:12:11 07/29/19 23 07/29/2022 CBC WITH DIFFE RENTI AL/PL ATELE T WBC 5.3 x10e3 /uL 3.4-10 .8 Not Available [facility] ([facility]) [address] [place], [address], 07/31/2022 16:12:12 07/29/19 23 07/29/2022 CBC WITH DIFFE RENTI AL/PL ATELE T RBC 5.04 x10e6 /uL 3.77-5 .28 Not Available [facility] ([facility]) [address] [place], [address], 07/31/2022 16:12:12 07/29/19 23 07/29/2022 CBC WITH DIFFE RENTI AL/PL ATELE T hemoglobin 12.2 g/dL 11.1-1 5.9 Not Available [facility] ([facility]) [address] [place], [address], 07/31/2022 16:12:12 07/29/19 23 07/29/2022 CBC WITH DIFFE RENTI AL/PL ATELE T hematocrit 37.9 % 34.0-4 6.6 Not Available [facility] ([facility]) [address], [place], [address], 07/31/2022 16:12:12 07/29/19 23 07/29/2022 CBC WITH DIFFE RENTI AL/PL ATELE T MCV 75 fL 79-97 below low normal Not Available [facility] ([facility]) [address] [place], [address], 07/31/2022 16:12:12 07/29/19 23 07/29/2022 CBC WITH DIFFE RENTI AL/PL ATELE T MCH 24.2 pg 26.6-3 3.0 below low normal Not Available [facility] ([facility]) [address], [place], [address], 07/31/2022 16:12:12 07/29/19 23 07/29/2022 CBC WITH DIFFE RENTI AL/PL ATELE T MCHC 32.2 g/dL 31.5-3 5.7 Not Available [facility] ([facility]) [address] [place], [address], 07/31/2022 16:12:12 07/29/19 23 07/29/2022 CBC WITH DIFFE RENTI AL/PL ATELE T RDW 14.1 % 11.7-1 5.4 Not Available [facility] ([facility]) [address] [place], [address], 07/31/2022 16:12:12 07/29/19 23 07/29/2022 CBC WITH DIFFE RENTI AL/PL ATELE T platelets 286 x10e3 /uL 150-45 0 Not Available [facility] ([facility]) [address] [place], [address], 07/31/2022 16:12:12 07/29/19 23 07/29/2022 CBC WITH DIFFE RENTI AL/PL ATELE T neutrophils 61 % not estab. Not Available [facility] ([facility]) [address], [place], [address], 07/31/2022 16:12:12 07/29/19 23 07/29/2022 CBC WITH DIFFE RENTI AL/PL ATELE T lymphs 28 % not estab. Not Available [facility] ([facility]) [address], [place], [address], 07/31/2022 16:12:12 07/29/19 23 07/29/2022 CBC WITH DIFFE RENTI AL/PL ATELE T monocytes 8 % not estab. Not Available [facility] ([facility]) [address] [place], [address], 07/31/2022 16:12:12 07/29/19 23 07/29/2022 CBC WITH DIFFE RENTI AL/PL ATELE T eos 2 % not estab. Not Available [facility] ([facility]) [address] [place], [address], 07/31/2022 16:12:12 07/29/19 23 07/29/2022 CBC WITH DIFFE RENTI AL/PL ATELE T basos 1 % not estab. Not Available [facility] ([facility]) [address] [place], [address], 07/31/2022 16:12:12 07/29/19 23 07/29/2022 CBC WITH DIFFE RENTI AL/PL ATELE T immature cells BEAUTY SPECIALIST Not Available [facility] ([facility]) [address], [place], [address], 07/31/2022 16:12:12 07/29/19 23 07/29/2022 CBC WITH DIFFE RENTI AL/PL ATELE T neutrophils (absolute) 3.2 x10e3 /uL 1.4-7. 0 Not Available [facility] ([facility]) [address], [place], [address], 07/31/2022 16:12:12 07/29/19 23 07/29/2022 CBC WITH DIFFE RENTI AL/PL ATELE T lymphs (absolute) 1.5 x10e3 /uL 0.7-3. 1 Not Available [facility] ([facility]) [address], [place], [address], 07/31/2022 16:12:12 07/29/19 23 07/29/2022 CBC WITH DIFFE RENTI AL/PL ATELE T monocytes(ab solute) 0.4 x10e3 /uL 0.1-0. 9 Not Available [facility] ([facility]) [address], [place], [address], 07/31/2022 16:12:12 07/29/19 23 07/29/2022 CBC WITH DIFFE RENTI AL/PL ATELE T eos (absolute) 0.1 x10e3 /uL 0.0-0. 4 Not Available [facility] ([facility]) [address], [place], [address], 07/31/2022 16:12:12 07/29/19 23 07/29/2022 CBC WITH DIFFE RENTI AL/PL ATELE T baso (absolute) 0.0 x10e3 /uL 0.0-0. 2 Not Available [facility] ([facility]) [address] [place], [address], 07/31/2022 16:12:12 07/29/19 23 07/29/2022 CBC WITH DIFFE RENTI AL/PL ATELE T immature granulocytes 0 % not estab. Not Available [facility] ([facility]) [address] [place], [address], 07/31/2022 16:12:12 07/29/19 23 07/29/2022 CBC WITH DIFFE RENTI AL/PL ATELE T immature grans (abs) 0.0 x10e3 /uL 0.0-0. 1 Not Available [facility] ([facility]) [address], [place], [address], 07/31/2022 16:12:12 07/29/19 23 07/29/2022 CBC WITH DIFFE RENTI AL/PL ATELE T NRBC BEAUTY SPECIALIST Not Available [facility] ([facility]) [address] [facility], [place], [address], 07/31/2022 16:12:12 07/29/19 23 07/29/2022 CBC WITH DIFFE RENTI AL/PL ATELE T hematology comments: BEAUTY SPECIALIST Not Available [facility] ([facility]) [address] [facility], [place], [address], 07/31/2022 16:12:12 07/29/19 23 07/29/2022 COMP. METAB OLIC PANEL (14) glucose 78 mg/dL 70-99 Not Available [facility] ([facility]) [address] [facility], [place], [address], 07/31/2022 16:12:13 07/29/19 23 07/29/2022 COMP. METAB OLIC PANEL (14) BUN 13 mg/dL 6-20 Not Available [facility] ([facility]) [address] [facility], [place], [address], 07/31/2022 16:12:13 07/29/19 23 07/29/2022 COMP. METAB OLIC PANEL (14) creatinine 0.87 mg/dL 0.57-1 .00 Not Available [facility] ([facility]) [address] [facility], [place], [address], 07/31/2022 16:12:13 07/29/19 23 07/29/2022 COMP. METAB OLIC PANEL (14) eGFR 91 mL/mi n/1.7 3 >59 Not Available [facility] ([facility]) [address] [facility], [place], [address], 07/31/2022 16:12:13 07/29/19 23 07/29/2022 COMP. METAB OLIC PANEL (14) BUN/creatini ne ratio 15 9-23 Not Available [facility] ([facility]) [address] [facility], [place], [address], 07/31/2022 16:12:13 07/29/19 23 07/29/2022 COMP. METAB OLIC PANEL (14) sodium 138 mmol/ L 134-14 4 Not Available [facility] ([facility]) [address] [facility], [place], [address], 07/31/2022 16:12:13 07/29/19 23 07/29/2022 COMP. METAB OLIC PANEL (14) potassium 4.3 mmol/ L 3.5-5. 2 Not Available [facility] ([facility]) [address] [facility], [place], [address], 07/31/2022 16:12:13 07/29/19 23 07/29/2022 COMP. METAB OLIC PANEL (14) chloride 99 mmol/ L 96-106 Not Available [facility] ([facility]) [address] [facility], [place], [address], 07/31/2022 16:12:13 07/29/19 23 07/29/2022 COMP. METAB OLIC PANEL (14) carbon dioxide, total 25 mmol/ L 20-29 Not Available [facility] ([facility]) [address] [facility], [place], [address], 07/31/2022 16:12:13 07/29/19 23 07/29/2022 COMP. METAB OLIC PANEL (14) calcium 9.1 mg/dL 8.7-10 .2 Not Available [facility] ([facility]) [address] [facility], [place], [address], 07/31/2022 16:12:13 07/29/19 23 07/29/2022 COMP. METAB OLIC PANEL (14) protein, total 7.2 g/dL 6.0-8. 5 Not Available [facility] ([facility]) [address], [place], [address], 07/31/2022 16:12:13 07/29/19 23 07/29/2022 COMP. METAB OLIC PANEL (14) albumin 4.1 g/dL 3.8-4. 8 Not Available [facility] ([facility]) [address], [place], [address], 07/31/2022 16:12:13 07/29/19 23 07/29/2022 COMP. METAB OLIC PANEL (14) globulin, total 3.1 g/dL 1.5-4. 5 Not Available [facility] ([facility]) [address], [place], [address], 07/31/2022 16:12:13 07/29/19 23 07/29/2022 COMP. METAB OLIC PANEL (14) A/G ratio 1.3 1.2-2. 2 Not Available [facility] ([facility]) [address] [facility], [place], [address], 07/31/2022 16:12:13 07/29/19 23 07/29/2022 COMP. METAB OLIC PANEL (14) bilirubin, total 0.3 mg/dL 0.0-1. 2 Not Available [facility] ([facility]) [address], [place], [address], 07/31/2022 16:12:13 07/29/19 23 07/29/2022 COMP. METAB OLIC PANEL (14) alkaline phosphatase 65 IU/L 44-121 Not Available [facility] ([facility]) [address], [place], [address], 07/31/2022 16:12:13 07/29/19 23 07/29/2022 COMP. METAB OLIC PANEL (14) AST (SGOT) 28 IU/L 0-40 Not Available [facility] ([facility]) [address] [place], [address], 07/31/2022 16:12:13 07/29/19 23 07/29/2022 COMP. METAB OLIC PANEL (14) ALT (SGPT) 38 IU/L 0-32 above high normal Not Available [facility] ([facility]) [address] [place], [address], 07/31/2022 16:12:13 07/29/19 23 07/29/2022 LIPID PANEL cholesterol, total 178 mg/dL 100-19 9 Not Available [facility] ([facility]) [address] [place], [address], 07/31/2022 16:12:13 07/29/19 23 07/29/2022 LIPID PANEL triglyceride s 127 mg/dL 0-149 Not Available [facility] ([facility]) [address] [place], [address], 07/31/2022 16:12:13 07/29/19 23 07/29/2022 LIPID PANEL HDL cholesterol 38 mg/dL >39 below low normal Not Available [facility] ([facility]) [address] [place], [address], 07/31/2022 16:12:13 07/29/19 23 07/29/2022 LIPID PANEL VLDL cholesterol darien 23 mg/dL 5-40 Not Available [facility] ([facility]) [address] [place], [address], 07/31/2022 16:12:13 07/29/19 23 07/29/2022 LIPID PANEL LDL chol calc ([facility]) 117 mg/dL 0-99 above high normal Not Available [facility] ([facility]) [address] [place], [address], 07/31/2022 16:12:13 07/29/19 23 07/29/2022 LIPID PANEL comment: BEAUTY SPECIALIST Not Available [facility] ([facility]) [address] [facility], [place], [address], 07/31/2022 16:12:13 07/29/19 23 07/29/2022 IRON AND TIBC iron bind.cap.(TI BC) 337 ug/dL 250-45 0 Not Available [facility] ([facility]) [address] [facility], [place], [address], 07/31/2022 16:12:14 07/29/19 23 07/29/2022 IRON AND TIBC UIBC 264 ug/dL 131-42 5 Not Available [facility] ([facility]) [address] [facility], [place], [address], 07/31/2022 16:12:14 07/29/19 23 07/29/2022 IRON AND TIBC iron 73 ug/dL 27-159 Not Available [facility] ([facility]) [address] [facility], [place], [address], 07/31/2022 16:12:14 07/29/19 23 07/29/2022 IRON AND TIBC iron saturation 22 % 15-55 Not Available [facility] ([facility]) [address] [facility], [place], [address], 07/31/2022 16:12:14 07/29/19 23 07/28/2022 EBV ANTIB WENDY PROFI LE interpretati on: Commen t EBV Inter preta tion Chart Ferreira: Antib wendy Prese nt + Antib wendy Absen t - Inter preta tion VCA-I gM VCA-I gG EBNA- IgG No previ ous infec tion/ - - - Susce ptibl e Prima ry infec tion (new + + - or recen t) Past Infec tion +or- + + See comme nt below * + - - *Resu lts indic ate infec tion with EBV at some time howev er canno t predi ct the timin g of the infec tion since antib odies to EBNA usual ly devel op after prima ry infec tion or, alter nativ madelaine, appro ximat madelaine 5-10% of patie nts with EBV never devel op antib odies to EBNA. Not Available [facility] ([facility]) [address] [place], [address], 07/31/2022 16:12:15 07/29/19 23 07/31/2022 EBV ANTIB WENDY PROFI LE ebv Ab vca, IgM <36.0 U/mL 0.0-35 .9 Negat geremias <36.0 Equiv ocal 36.0 - 43.9 Posit geremias >43.9 Not Available [facility] ([facility]) [address] [place], [address], 07/31/2022 16:12:15 07/29/19 23 07/31/2022 EBV ANTIB WENDY PROFI LE ebv Ab vca, IgG >600.0 U/mL 0.0-17 .9 above high normal Negat geremias <18.0 Equiv ocal 18.0 - 21.9 Posit geremias >21.9 Not Available [facility] ([facility]) [address] [place], [address], 07/31/2022 16:12:15 07/29/19 23 07/31/2022 EBV ANTIB WENDY PROFI LE ebv nuclear antigen Ab, IgG 412.0 U/mL 0.0-17 .9 above high normal Negat geremias <18.0 Equiv ocal 18.0 - 21.9 Posit geremias >21.9 Not Available [facility] ([facility]) [address] [place], [address], 07/31/2022 16:12:15 07/29/19 23 07/29/2022 VITAM IN B12 AND FOLAT E vitamin B12 434 pg/mL 232-12 45 Not Available [facility] ([facility]) [address] [facility], [place], [address], 07/31/2022 16:12:15 07/29/19 23 07/29/2022 VITAM IN B12 AND FOLAT E folate (folic acid), serum 5.7 NG/mL >3.0 A serum folat e vince ntrat ion of less than 3.1 ng/mL is consi dered to repre sent clini darien defic iency . Not Available [facility] ([facility]) [address] [facility], [place], [address], 07/31/2022 16:12:15 07/29/19 23 07/29/2022 HEMOG LOBIN A1C hemoglobin A1C 5.6 % 4.8-5. 6 Predi abete s: 5.7 - 6.4 Diabe neri: >6.4 Glyce dayanara contr ol for adult s with diabe neri: <7.0 Not Available [facility] ([facility]) [address] [facility], [place], [address], 07/31/2022 16:12:16 07/29/19 23 07/29/2022 VITAM IN D, 25-HY DROXY vitamin D, 25-hydroxy 29.3 NG/mL 30.0-1 00.0 below low normal Vitam in D defic iency has been defin ed by the Insti tute of Medic ine and an Endoc rine Socie ty pract ice guide line as a level of serum 25-OH vitam in D less than 20 ng/mL (1,2) . The Endoc rine Socie ty went on to furth er defin e vitam in D insuf ficie ncy as a level betwe en 21 and 29 ng/mL (2). 1. IOM (Inst itute of Medic ine). 2009. Dieta ry refer ence intak es for calci um and D. Miladis rob DC: The [facility] Press . 2. Shelly aaron MF, Janice gonzales [place], Karoline off-F errar i LAYTON, et al. Evalu ation , treat ment, and preve ntion of vitam in D defic iency : an Endoc rine Socie ty clini darien pract ice guide line. JCEM. 2010; 96(7) :1911 -30. Not Available [facility] ([facility]) [address] [facility], [place], [address], 07/31/2022 16:12:16 07/29/19 23 07/29/2022 ANTI- CCP AB, IGG/I GA anti-ccp Ab, IgG/IgA 4 units 0-19 Negat geremias <20 Weak posit geremias 20 - 39 Moder ate posit geremias 40 - 59 Stron g posit geremias >59 Not Available [facility] ([facility]) [address] [facility], [place], [address], 07/31/2022 16:12:17 07/29/19 23 07/31/2022 ANTIN UCLEA R AB MULTI PLEX RFX 9 ALEXUS direct Negati ve negati ve Not Available [facility] ([facility]) [address] [facility], [place], [address], 07/31/2022 16:12:18 07/29/19 23 07/29/2022 SEDIM ENTAT ION RATE- WESTE RGREN sedimentatio n rate-westerg marlen 61 mm/HR 0-32 above high normal Not Available [facility] ([facility]) [address] [facility], [place], [address], 07/31/2022 16:12:18 07/29/19 23 07/29/2022 THYRO ID ANTIB ODIES thyroid peroxidase (tpo) Ab 20 IU/mL 0-34 Not Available [facility] ([facility]) [address] [place], [address], 07/31/2022 16:12:19 07/29/19 23 07/31/2022 THYRO ID ANTIB ODIES thyroglobuli n antibody <1.0 IU/mL 0.0-0. 9 Thyro globu cameron Antib wendy measu red by Beckm an Coult er Metho dolog y Not Available [facility] ([facility]) [address] [facility], [place], [address], 07/31/2022 16:12:19 07/29/19 23 07/29/2022 INSUL IN insulin 17.2 uIU/m L 2.6-24 .9 Not Available [facility] ([facility]) [address] [facility], [place], [address], 07/31/2022 16:12:20 07/29/19 23 07/29/2022 C-GERARD CTIVE PROTE IN, QUANT C-reactive protein, quant 16 mg/L 0-10 above high normal Not Available [facility] ([facility]) [address] [facility], [place], [address], 07/31/2022 16:12:20 07/29/19 23 07/28/2022 urina lysis , dipst ick Leukocytes Small Not Available [facility] [address] [place], [address], 07/24/2022 14:24:03 07/29/19 23 07/28/2022 urina lysis , dipst ick Nitrite negati ve Not Available [facility] [address] [place], [address], 07/24/2022 14:24:03 07/29/19 23 07/28/2022 urina lysis , dipst ick Urobilinogen .2 Not Available [facility] [address] [place], [address], 07/24/2022 14:24:03 07/29/19 23 07/28/2022 urina lysis , dipst ick Protein Negati ve Not Available [facility] [address] [place], [address], 07/24/2022 14:24:03 07/29/19 23 07/28/2022 urina lysis , dipst ick pH 6.0 Not Available [facility] [address] [place], [address], 07/24/2022 14:24:03 07/29/19 23 07/28/2022 urina lysis , dipst ick Blood Negati ve Not Available [facility] [address] [place], [address], 07/24/2022 14:24:03 07/29/19 23 07/28/2022 urina lysis , dipst ick Specific [place] 1.030 Not Available [facility] [address] [place], [address], 07/24/2022 14:24:03 07/29/19 23 07/28/2022 urina lysis , dipst ick Ketone Negati ve Not Available [facility] [address] [place], [address], 07/24/2022 14:24:03 07/29/19 23 07/28/2022 urina lysis , dipst ick Bilirubin Negati ve Not Available [facility] [address] [place], [address], 07/24/2022 14:24:03 07/29/19 23 07/28/2022 urina lysis , dipst ick Glucose Negati ve Not Available [facility] [address] [place], [address], 07/24/2022 14:24:03 07/29/19 23 07/28/2022 urina lysis , dipst ick Appearance Clear Not Available [facility] [address] [place], [address], 07/24/2022 14:24:03 07/29/1907/28/2022 urina lysis , dipst ick Color Yellow Not Available [facility] [address], [place], [address], 07/24/2022 14:24:03 01/11/2001/11/2023 CBC WITH DIFFE RENTI AL/PL ATELE T WBC 8.5 x10e3 /uL 3.4-10 .8 Not Available [facility] ([facility]) [address] [facility], [place], [address], 01/16/2023 10:12:06 01/11/2001/11/2023 CBC WITH DIFFE RENTI AL/PL ATELE T RBC 4.82 x10e6 /uL 3.77-5 .28 Not Available [facility] ([facility]) [address] [place], [address], 01/16/2023 10:12:06 01/11/2001/11/2023 CBC WITH DIFFE RENTI AL/PL ATELE T hemoglobin 12.1 g/dL 11.1-1 5.9 Not Available [facility] ([facility]) [address] [facility], [place], [address], 01/16/2023 10:12:06 01/11/2001/11/2023 CBC WITH DIFFE RENTI AL/PL ATELE T hematocrit 37.9 % 34.0-4 6.6 Not Available [facility] ([facility]) [address] [facility], [place], [address], 01/16/2023 10:12:06 01/11/2001/11/2023 CBC WITH DIFFE RENTI AL/PL ATELE T MCV 79 fL 79-97 Not Available [facility] ([facility]) [address] [place], [address], 01/16/2023 10:12:06 01/11/20 23 01/11/2023 CBC WITH DIFFE RENTI AL/PL ATELE T MCH 25.1 pg 26.6-3 3.0 below low normal Not Available [facility] ([facility]) [address] [facility], [place], [address], 01/16/2023 10:12:06 01/11/20 23 01/11/2023 CBC WITH DIFFE RENTI AL/PL ATELE T MCHC 31.9 g/dL 31.5-3 5.7 Not Available [facility] ([facility]) [address] [place], [address], 01/16/2023 10:12:06 01/11/20 23 01/11/2023 CBC WITH DIFFE RENTI AL/PL ATELE T RDW 14.1 % 11.7-1 5.4 Not Available [facility] ([facility]) [address] [facility], [place], [address], 01/16/2023 10:12:06 01/11/20 23 01/11/2023 CBC WITH DIFFE RENTI AL/PL ATELE T platelets 310 x10e3 /uL 150-45 0 Not Available [facility] ([facility]) [address] [facility], [place], [address], 01/16/2023 10:12:06 01/11/20 23 01/11/2023 CBC WITH DIFFE RENTI AL/PL ATELE T neutrophils 64 % not estab. Not Available [facility] ([facility]) [address] [place], [address], 01/16/2023 10:12:06 01/11/20 23 01/11/2023 CBC WITH DIFFE RENTI AL/PL ATELE T lymphs 26 % not estab. Not Available [facility] ([facility]) [address] [place], [address], 01/16/2023 10:12:06 01/11/20 23 01/11/2023 CBC WITH DIFFE RENTI AL/PL ATELE T monocytes 8 % not estab. Not Available [facility] ([facility]) [address] [place], [address], 01/16/2023 10:12:06 01/11/20 23 01/11/2023 CBC WITH DIFFE RENTI AL/PL ATELE T eos 1 % not estab. Not Available [facility] ([facility]) [address] [facility], [place], [address], 01/16/2023 10:12:06 01/11/20 23 01/11/2023 CBC WITH DIFFE RENTI AL/PL ATELE T basos 1 % not estab. Not Available [facility] ([facility]) [address] [facility], [place], [address], 01/16/2023 10:12:06 01/11/20 23 01/11/2023 CBC WITH DIFFE RENTI AL/PL ATELE T immature cells BEAUTY SPECIALIST Not Available [facility] ([facility]) [address] [place], [address], 01/16/2023 10:12:06 01/11/20 23 01/11/2023 CBC WITH DIFFE RENTI AL/PL ATELE T neutrophils (absolute) 5.5 x10e3 /uL 1.4-7. 0 Not Available [facility] ([facility]) [address] [place], [address], 01/16/2023 10:12:06 01/11/20 23 01/11/2023 CBC WITH DIFFE RENTI AL/PL ATELE T lymphs (absolute) 2.2 x10e3 /uL 0.7-3. 1 Not Available [facility] ([facility]) [address] [place], [address], 01/16/2023 10:12:06 01/11/20 23 01/11/2023 CBC WITH DIFFE RENTI AL/PL ATELE T monocytes(ab solute) 0.7 x10e3 /uL 0.1-0. 9 Not Available [facility] ([facility]) [address] [facility], [place], [address], 01/16/2023 10:12:06 01/11/20 23 01/11/2023 CBC WITH DIFFE RENTI AL/PL ATELE T eos (absolute) 0.1 x10e3 /uL 0.0-0. 4 Not Available [facility] ([facility]) [address] [facility], [place], [address], 01/16/2023 10:12:06 01/11/20 23 01/11/2023 CBC WITH DIFFE RENTI AL/PL ATELE T baso (absolute) 0.0 x10e3 /uL 0.0-0. 2 Not Available [facility] ([facility]) [address] [facility], [place], [address], 01/16/2023 10:12:06 01/11/20 23 01/11/2023 CBC WITH DIFFE RENTI AL/PL ATELE T immature granulocytes 0 % not estab. Not Available [facility] ([facility]) [address] [facility], [place], [address], 01/16/2023 10:12:06 01/11/20 23 01/11/2023 CBC WITH DIFFE RENTI AL/PL ATELE T immature grans (abs) 0.0 x10e3 /uL 0.0-0. 1 Not Available [facility] ([facility]) [address] [facility], [place], [address], 01/16/2023 10:12:06 01/11/20 23 01/11/2023 CBC WITH DIFFE RENTI AL/PL ATELE T NRBC BEAUTY SPECIALIST Not Available [facility] ([facility]) [address] [facility], [place], [address], 01/16/2023 10:12:06 01/11/20 23 01/11/2023 CBC WITH DIFFE RENTI AL/PL ATELE T hematology comments: BEAUTY SPECIALIST Not Available [facility] ([facility]) [address] [facility], [place], [address], 01/16/2023 10:12:06 01/11/20 23 01/11/2023 COMP. METAB OLIC PANEL (14) glucose 95 mg/dL 70-99 Not Available [facility] ([facility]) [address] [place], [address], 01/16/2023 10:12:07 01/11/20 23 01/11/2023 COMP. METAB OLIC PANEL (14) BUN 15 mg/dL 6-20 Not Available [facility] ([facility]) [address] [place], [address], 01/16/2023 10:12:07 01/11/20 23 01/11/2023 COMP. METAB OLIC PANEL (14) creatinine 0.72 mg/dL 0.57-1 .00 Not Available [facility] ([facility]) [address] [facility], [place], [address], 01/16/2023 10:12:07 01/11/20 23 01/11/2023 COMP. METAB OLIC PANEL (14) eGFR 114 mL/mi n/1.7 3 >59 Not Available [facility] ([facility]) [address] [place], [address], 01/16/2023 10:12:07 01/11/20 23 01/11/2023 COMP. METAB OLIC PANEL (14) BUN/creatini ne ratio 21 9-23 Not Available [facility] ([facility]) [address] [place], [address], 01/16/2023 10:12:07 01/11/20 23 01/11/2023 COMP. METAB OLIC PANEL (14) sodium 139 mmol/ L 134-14 4 Not Available [facility] ([facility]) [address] [place], [address], 01/16/2023 10:12:07 01/11/20 23 01/11/2023 COMP. METAB OLIC PANEL (14) potassium 4.1 mmol/ L 3.5-5. 2 Not Available [facility] ([facility]) [address] [facility], [place], [address], 01/16/2023 10:12:07 01/11/20 23 01/11/2023 COMP. METAB OLIC PANEL (14) chloride 99 mmol/ L 96-106 Not Available [facility] ([facility]) [address] [facility], [place], [address], 01/16/2023 10:12:07 01/11/20 23 01/11/2023 COMP. METAB OLIC PANEL (14) carbon dioxide, total 27 mmol/ L 20-29 Not Available [facility] ([facility]) [address] [place], [address], 01/16/2023 10:12:07 01/11/20 23 01/11/2023 COMP. METAB OLIC PANEL (14) calcium 9.3 mg/dL 8.7-10 .2 Not Available [facility] ([facility]) [address] [place], [address], 01/16/2023 10:12:07 01/11/20 23 01/11/2023 COMP. METAB OLIC PANEL (14) protein, total 7.3 g/dL 6.0-8. 5 Not Available [facility] ([facility]) [address] [place], [address], 01/16/2023 10:12:07 01/11/20 23 01/11/2023 COMP. METAB OLIC PANEL (14) albumin 4.2 g/dL 3.9-4. 9 Not Available [facility] ([facility]) [address] [facility], [place], [address], 01/16/2023 10:12:07 01/11/20 23 01/11/2023 COMP. METAB OLIC PANEL (14) globulin, total 3.1 g/dL 1.5-4. 5 Not Available [facility] ([facility]) [address] [place], [address], 01/16/2023 10:12:07 01/11/20 23 01/11/2023 COMP. METAB OLIC PANEL (14) A/G ratio 1.4 1.2-2. 2 Not Available [facility] ([facility]) [address] [place], [address], 01/16/2023 10:12:07 01/11/20 23 01/11/2023 COMP. METAB OLIC PANEL (14) bilirubin, total 0.2 mg/dL 0.0-1. 2 Not Available [facility] ([facility]) [address] [place], [address], 01/16/2023 10:12:07 01/11/20 23 01/11/2023 COMP. METAB OLIC PANEL (14) alkaline phosphatase 72 IU/L 44-121 Not Available [facility]) [address] [place], [address], 01/16/2023 10:12:07 01/11/20 23 01/11/2023 COMP. METAB OLIC PANEL (14) AST (SGOT) 17 IU/L 0-40 Not Available [facility] ([facility]) [address] [place], [address], 01/16/2023 10:12:07 01/11/20 23 01/11/2023 COMP. METAB OLIC PANEL (14) ALT (SGPT) 24 IU/L 0-32 Not Available [facility] ([facility]) [address] [place], [address], 01/16/2023 10:12:07 01/11/20 23 01/14/2023 CT/GC /TV DEIDRE+M GENIT ALIUM UR. mycoplasma genitalium DEIDRE Negati ve negati ve Not Available [facility] ([facility]) [address] [place], [address], 01/16/2023 10:12:08 01/11/20 23 01/15/2023 CT/GC /TV DEIDRE+M GENIT ALIUM UR. trich vag by DEIDRE Negati ve negati ve Not Available [facility] ([facility]) [address] [facility], [place], [address], 01/16/2023 10:12:08 01/11/20 23 01/15/2023 CT/GC /TV DEIDRE+M GENIT ALIUM UR. neisseria gonorrhoeae, DEIDRE Negati ve negati ve Not Available [facility] ([facility]) [address] [facility], [place], [address], 01/16/2023 10:12:08 01/11/20 23 01/16/2023 CT/GC /TV DEIDRE+M GENIT ALIUM UR. chlamydia trachomatis, DEIDRE Positi ve negati ve abnormal Not Available [facility] ([facility]) [address] [place], [address], 01/16/2023 10:12:08 01/11/20 23 01/11/2023 VITAM IN D, 25-HY DROXY vitamin D, 25-hydroxy 34.3 NG/mL 30.0-1 00.0 Vitam in D defic iency has been defin ed by the Insti tute of Medic ine and an Endoc rine Socie ty pract ice guide line as a level of serum 25-OH vitam in D less than 20 ng/mL (1,2) . The Endoc rine Socie ty went on to furth er defin e vitam in D insuf ficie ncy as a level betwe en 21 and 29 ng/mL (2). 1. IOM (Inst itute of Medic ine). 2010. Dieta ry refer ence intak es for calci um and D. Miladis rob DC: The [facility] Press . 2. Shelly aaron MF, Binjerzy ey [place], Bisjessica off-F errar i LAYTON, et al. Evalu ation , treat ment, and preve ntion of vitam in D defic iency : an Endoc rine Socie ty clini darien pract ice guide line. JCEM. 2010; 96(7) :1911 -30. Not Available [facility] ([facility]) [address], [place], [address], 01/16/2023 10:12:09 01/11/20 23 01/11/2023 SEDIM ENTAT ION RATE- WESTE RGREN sedimentatio n rate-westerg marlen 57 mm/HR 0-32 above high normal Not Available [facility] ([facility]) [address], [place], [address], 01/16/2023 10:12:09 01/11/20 23 01/11/2023 C-GERARD CTIVE PROTE IN, QUANT C-reactive protein, quant 8 mg/L 0-10 Not Available [facility] ([facility]) [address], [place], [address], 01/16/2023 10:12:10 01/11/20 23 01/15/2023 URINE CULTU RE,CO MPREH ENSIV E urine culture,comp rehensive Final report Not Available [facility] ([facility]) [address], [place], [address], 01/16/2023 10:12:11 01/11/20 23 01/15/2023 URINE CULTU RE,CO MPREH ENSIV E result 1 COMMEN T Mixed uroge nital jesus 1,000 Colon ies/m L Not Available [facility] ([facility]) [address] [place], [address], 01/16/2023 10:12:11 01/11/20 23 01/10/2023 urina lysis , dipst ick Leukocytes Small Not Available [facility] [address] [place], [address], 01/08/2023 08:51:46 01/11/20 23 01/10/2023 urina lysis , dipst ick Nitrite negati ve Not Available [facility] [address] [place], [id number], 01/08/2023 08:51:46 01/11/20 23 01/10/2023 urina lysis , dipst ick Urobilinogen .2 Not Available [facility] [address] [place], [address], 01/08/2023 08:51:46 01/11/20 23 01/10/2023 urina lysis , dipst ick Protein Negati ve Not Available [facility] [address] [place], [place], [address], 01/08/2023 08:51:46 01/11/20 23 01/10/2023 urina lysis , dipst ick pH 5.5 Not Available [facility] [address] [place], [address], 01/08/2023 08:51:46 01/11/20 23 01/10/2023 urina lysis , dipst ick Blood Negati ve Not Available [facility] [address] [place], [address], 01/08/2023 08:51:46 01/11/20 23 01/10/2023 urina lysis , dipst ick Specific [place] 1.030 Not Available [facility] [address] [place], [address], 01/08/2023 08:51:46 01/11/20 23 01/10/2023 urina lysis , dipst ick Ketone Negati ve Not Available [facility] [address] [place], [address], 01/08/2023 08:51:46 01/11/20 23 01/10/2023 urina lysis , dipst ick Bilirubin Negati ve Not Available [facility] [address] [place], [address], 01/08/2023 08:51:46 01/11/20 23 01/10/2023 urina lysis , dipst ick Glucose Negati ve Not Available [facility] [address] [place], [address], 01/08/2023 08:51:46 01/11/20 23 01/10/2023 urina lysis , dipst ick Appearance Slight ly Cloudy Not Available [facility] [address] [place], [address], 01/08/2023 08:51:46 01/11/20 23 01/10/2023 urina lysis , dipst ick Color Dark Yellow Not Available [facility] [address] [place], [address], 01/08/2023 08:51:46 07/25/19 24 07/28/2023 CT/GC /TV DEIDRE+M YCOPL ASMAS URINE mycoplasma genitalium DEIDRE Negati ve negati ve Not Available [facility] ([facility]) [address] [place], [address], 07/28/2023 14:11:12 07/25/19 24 07/28/2023 CT/GC /TV DEIDRE+M YCOPL ASMAS URINE mycoplasma hominis DEIDRE Positi ve negati ve abnormal Not Available [facility] ([facility]) [address] [place], [address], 07/28/2023 14:11:12 07/25/19 24 07/28/2023 CT/GC /TV DEIDRE+M YCOPL ASMAS URINE ureaplasma spp DEIDRE Positi ve negati ve abnormal Not Available [facility] ([facility]) [address] [facility], [place], [address], 07/28/2023 14:11:12 07/25/19 24 07/28/2023 CT/GC /TV DEIDRE+M YCOPL ASMAS URINE trich vag by DEIDRE Negati ve negati ve Not Available [facility] ([facility]) [address] [facility], [place], [address], 07/28/2023 14:11:12 07/25/19 24 07/28/2023 CT/GC /TV DEIDRE+M YCOPL ASMAS URINE chlamydia trachomatis, DEIDRE Negati ve negati ve Not Available [facility] ([facility]) [address] [facility], [place], [address], 07/28/2023 14:11:12 07/25/19 24 07/28/2023 CT/GC /TV DEIDRE+M YCOPL ASMAS URINE neisseria gonorrhoeae, DEIDRE Negati ve negati ve Not Available [facility] ([facility]) [address] [facility], [place], [address], 07/28/2023 14:11:12 07/25/19 24 07/27/2023 URINE CULTU RE,CO MPREH ENSIV E urine culture,comp rehensive Final report Not Available [facility] ([facility]) [address] [place], [address], 07/28/2023 14:11:12 07/25/19 24 07/27/2023 URINE CULTU RE,CO MPREH ENSIV E result 1 COMMEN T Mixed uroge nital jesus 7,000 Colon ies/m L Not Available [facility] ([facility]) [address] [place], [address], 07/28/2023 14:11:12 07/25/19 24 07/25/2023 urina lysis , dipst ick Leukocytes Large Not Available [facility] [address] [place], [address], 07/23/2023 08:46:54 07/25/19 24 07/25/2023 urina lysis , dipst ick Nitrite negati ve Not Available [facility] [address] [place], [address], 07/23/2023 08:46:54 07/25/19 24 07/25/2023 urina lysis , dipst ick Urobilinogen .2 Not Available [facility] [address] [place], [address], 07/23/2023 08:46:54 07/25/19 24 07/25/2023 urina lysis , dipst ick Protein Negati ve Not Available [facility] [address] [place], [address], 07/23/2023 08:46:54 07/25/19 24 07/25/2023 urina lysis , dipst ick pH 6.0 Not Available [facility] [address] [place], [address], 07/23/2023 08:46:54 07/25/19 24 07/25/2023 urina lysis , dipst ick Blood Negati ve Not Available [facility] [address] [place], [address], 07/23/2023 08:46:54 07/25/19 24 07/25/2023 urina lysis , dipst ick Specific [place] 1.025 Not Available [facility] [address] [place], [address], 07/23/2023 08:46:54 07/25/19 24 07/25/2023 urina lysis , dipst ick Ketone Negati ve Not Available [facility] [address] [place], [address], 07/23/2023 08:46:54 07/25/19 24 07/25/2023 urina lysis , dipst ick Bilirubin Negati ve Not Available [facility] [address] [place], [address], 07/23/2023 08:46:54 07/25/19 24 07/25/2023 urina lysis , dipst ick Glucose Negati ve Not Available [facility] [address] [place], [address], 07/23/2023 08:46:54 07/25/19 24 07/25/2023 urina lysis , dipst ick Appearance Slight ly Cloudy Not Available [facility] [address] [place], [address], 07/23/2023 08:46:54 07/25/19 24 07/25/2023 urina lysis , dipst ick Color Yellow Not Available [facility] [address] [place], [address], 07/23/2023 08:46:54 07/22/19 23 US, retro perit oneum , compl ete No observ ation record ed. Not Available 07/28 08:35:36 Result Notes None recorded. Problems Name Problem SNOMED Code Status Onset Date Resolution Date Notes Provider Name and Address Organization Details Recorded Time Abdominal pain 31114053 Active 022 Ali Nabil null, [place] - [facility] 17:32:32 Pilar cyst of scalp 549216800 Active 025 Lizzette Pascual, DO [address], [place], [address], [place] - [facility] 5 08:47:37 Morbid obesity 634195688 Active 025 Lizzette Pascual, DO [address], [place], [address], [place] - [facility] 5 08:48:02 Problem Notes None recorded. Procedures Surgical History Date Name Laterality Status Provider Name and Address Organization Details Recorded Time 07/29/19 23 In and Out Catheterization completed Anita Rangel, CLINICAL TRIAL EDUCATOR [address], [place], [address], [place] - [facility] 07/28/2022 09:25:42 Imaging Results None recorded. Procedure Notes None recorded. Medical Equipment None Reported. Allergies Allergen ID Allergen Name Allergen Category Reaction Reaction Severity Criticality Documentation Date Start Date Code Code System Note Provider Name and Address Organization Details Recorded Time 300022 Product containin g penicilli n (product) medicatio n rash Not available Not available 06/09/2021 18746 [id number] CHRIS Barcenas [place], [place] - [facility] 11:12:20 022243 Substance with sulfonami de structure and antibacte rial mechanism of action (substanc e) medicatio n rash Not available Not available 06/09/2021 78199 8003 [place] Monica Barcenas [facility] 11:13:05 Medications Name Sig Start Date Stop Date Status Note LastModified by Organization Details LastModified Time doxycycline hyclate 100 mg capsule Take 1 capsule twice a day by oral route for 7 days. 06/03 completed Not Available Not Available Not Available Vitamin B-6 25 mg tablet Take 1 tablet 3 times a day by oral route. 06/03 completed Not Available Not Available Not Available clindamycin HCl 300 mg capsule 06/03 completed Not Available Not Available Not Available azithromycin 250 mg tablet take 4 pills at once to equal 1 gram 07/24 completed Not Available Not Available Not Available fluconazole 200 mg tablet 06/03 completed Not Available Not Available Not Available metronidazol e 500 mg tablet Take 1 tablet twice a day by oral route for 7 days. 06/03 completed Not Available Not Available Not Available dicyclomine 20 mg tablet 06/03 completed Not Available Not Available Not Available cephalexin 500 mg capsule Take 1 capsule twice a day by oral route for 7 days. 2024 active Not Available Not Available Not Avai lable ergocalcifer ol (vitamin D2) 1,250 mcg (50,000 unit) capsule Take 1 capsule twice a week by oral route for 91 days. 06/03 completed Not Available Not Available Not Available chlorhexidin e gluconate 4 % topical liquid active Not Available Not Available Not Available azithromycin 1 gram oral packet Take 1 g by oral route for 1 day. 06/03 completed Not Available Not Available Not Available azithromycin 500 mg tablet Take 1 tablet every day by oral route for 3 days. 06/03 completed Not Available Not Available Not Available nitrofuranto in monohydrate/ macrocrystal s 100 mg capsule Take 1 capsule every day by oral route for 90 days. 06/03 completed Not Available Not Available Not Available solifenacin 5 mg tablet Take 1 tablet every day by oral route. 06/03 completed Not Available Not Available Not Available GaviLyte-G 236 gram-22.74 gram-6.74 gram-5.86 gram oral solution 06/03 completed Not Available Not Available Not Available Myrbetriq 25 mg tablet,exten ded release 01/25 completed Not Available Not Available Not Available Vitamin 27 mg iron-800 mcg tablet Take 1 tablet every day by oral route. 06/03 completed Not Available Not Available Not Available Gemtesa 75 mg tablet Take 1 tablet every day by oral route for 90 days. 06/03 completed Not Available Not Available Not Available Antimicrobia l 0.95 % topical cleanser Apply 1 mL twice a day by topical route. 2024 active Not Available Not Available Not Avai lable Vitals Date Recorded Body height Body mass index (BMI) Body weight Body temperature Heart rate Respiratory rate Pain severity - 0-10 verbal numeric rating [Score] - Reported Oxygen saturation Oxygen saturation in Arterial blood by Pulse oximetry Systolic And Diastolic Provider Name and Address Organization Details Last Updated DateTime 168.91 cm 45.2 kg/m2 658573. 23 g 97.8 [degF] 85 /min 14 /min 3 97 % 97 % 120/80 mm[Hg] Josephine De La Rosa [place] - [facility] 5 08:28:42 Date Recorded Body weight Heart rate Respiratory rate Oxygen saturation Oxygen saturation in Arterial blood by Pulse oximetry Pain severity Frausto-Barcenas FACES pain rating scale Systolic And Diastolic Provider Name and Address Organization Details Last Updated DateTime 3 036311. 02 g 78 /min 14 /min 97 % 97 % 0 130/80 mm[Hg] Mildred Melendrez [facility] 3 13:17:31 Date Recorded Body height Body mass index (BMI) Body weight Heart rate Oxygen saturation Oxygen saturation in Arterial blood by Pulse oximetry Respiratory rate Pain severity - 0-10 verbal numeric rating [Score] - Reported Systolic And Diastolic Provider Name and Address Organization Details Last Updated DateTime 4 168.91 cm 44.5 kg/m2 480017. 86 g 85 /min 97 % 97 % 16 /min 0 118/78 mm[Hg] Patrizia Aldridge [facility] 4 08:17:26 Date Recorded Body height Body mass index (BMI) Body weight Heart rate Oxygen saturation Oxygen saturation in Arterial blood by Pulse oximetry Respiratory rate Pain severity Frausto-Barcenas FACES pain rating scale Systolic And Diastolic Provider Name and Address Organization Details Last Updated DateTime 3 168.91 cm 41.3 kg/m2 070709. 02 g 78 /min 98 % 98 % 14 /min 0 128/80 mm[Hg] Mildred Melendrez [facility] 3 08:27:56 Date Recorded Body height Body mass index (BMI) Body weight Heart rate Oxygen saturation Oxygen saturation in Arterial blood by Pulse oximetry Respiratory rate Pain severity - 0-10 verbal numeric rating [Score] - Reported Systolic And Diastolic Provider Name and Address Organization Details Last Updated DateTime 3 168.91 cm 40.3 kg/m2 449751. 67 g 95 /min 97 % 97 % 14 /min 0 120/80 mm[Hg] Patrizia Aldrigde [facility] 3 09:25:56 Social History Question Answer Notes LastModified by Organizat ion Details LastModified Time Tobacco Smoking Status Former Smoker Patrizia [email or web address] [facility] 01/10/2023 09:27:56 Do You Have An Advance Directive? No [email or web address] Information not available 06/09/2021 Are You Blind Or Do You Have Difficulty Seeing? No [email or web address] Information not available 06/09/2021 What Is Your Level Of Caffeine Consumption? Occasional [email or web address] Information not available 06/09/2021 In The 14 Days Before Symptom Onset, Have You Had Close Contact With A Laboratory-confir med COVID-19 While That Case Was Ill? No [email or web address] Information not available 06/03/2024 In The 14 Days Before Symptom Onset, Have You Had Close Contact With A Person Who Is Under Investigation For COVID-19 While That Person Was Ill? No [email or web address] Information not available 06/03/2024 Have You Been To An Area Known To Be High Risk For COVID-19? No [email or web address] Information not available 06/03/2024 Are You Deaf Or Do You Have Serious Difficulty Hearing? No Information not available 06/09/2021 What Type Of Diet Are You Following? REGULAR [email or web address] Information not available 06/09/2021 Have You Processed Blood Or Body Fluids From An Ebola Virus Disease Patient Without Appropriate PPE? No [email or web address] Information not available 06/03/2024 Do You Reside In Or Have You Traveled To An Area Where Ebola Virus Transmission Is Active? No [email or web address] Information not available 06/03/2024 What Is The Highest Grade Or Level Of School You Have Completed Or The Highest Degree You Have Received? [id number] [email or web address] Information not available 06/09/2021 Have There Been Any Changes To Your Family Or Social Situation? No [email or web address] Information no t available 06/03/2024 When Did You Quit Smoking? 1-5yearssincel kayla [email or web address] Information not available 01/10/2023 Have You Recently Or Are You Planning To Travel To An Area With Zika Virus? No Information not available 06/03/2024 Last Menstrual Period? 04/23/2024 [email or web address] Information not available 06/03/2024 Do You Have A Medical Power Of Travel Med Surg Rn? No [email or web address] Information not available 06/09/2021 What Was The Date Of Your Most Recent Tobacco Screening? 06/03/2024 [email or web address] Information not available 06/03/2024 How Many Children Do You Have? 1 [email or web address] Information not available 06/09/2021 What Is Your Current Pack Years? 10-19packyears [email or web address] Information not available 06/09/2021 What Is Your Relationship Status? Single [email or web address] Information not available 06/09/2021 Are You Sexually Active? No [email or web address] Information not available 06/09/2021 Do You Have Smoke And Carbon Monoxide Detectors In Your Home? Yes Information not available 06/09/2021 How Much Tobacco Do You Smoke? 2 PPD Information not available 06/09/2021 Has Tobacco Cessation Counseling Been Provided? No Information not available 06/09/2021 How Many Years Have You Smoked Tobacco? 12 Information not available 06/09/2021 Do You Have Difficulty Walking Or Climbing Stairs? No [email or web address] Information not available 06/09/2021 How Many Years Have You Used E-cigarettes Or Vape? 3 [email or web address] Information not available 06/09/2021 Sex: Female Functional Status Question Answer Note LastModified by OKpanda ion Details LastModified Time Do you use any illicit or recreational drugs? No Information not available 06/09/2021 Do you or have you ever used any other forms of tobacco or nicotine? Yes [email or web address] Information not available 06/09/2021 What is your level of alcohol consumption? None [email or web address] Information not available 06/09/2021 Are you currently employed? No Information not available 06/09/2021 Do you have transportation difficulties? No [email or web address] Information not available 06/09/2021 Are you able to walk independently without assistance or assistive devices? YESASSIST [email or web address] Information not available 06/09/2021 Do you have difficulty doing errands alone? No [email or web address] Information not available 06/09/2021 Are you able to care for yourself independently? Yes Information not available 06/09/2021 Do you have difficulty dressing, bathing, grooming, or toileting? No [email or web address] Information not available 06/09/2021 Do you or have you ever used e-cigarettes or vape? Current user of electronic cigarettes started three years ago [email or web address] Information not available 01/10/2023 What is your exercise level? None [email or web address] Information not available 06/09/2021 Mental Status Question Answer Note LastModified by Organizat ion Details LastModified Time Do you feel stressed (tense, restless, nervous, or anxious, or unable to sleep at night)? [id number] Information not available 06/09/2021 Do you have difficulty concentrating, remembering or making decisions? No Information no t available 06/09/2021 Family History Relationship Description Onset Age of this Age Resolved Age Notes LastModified by Organization Details LastModified Time Father No current problems or disability [email or web address] Not available 06/03 08:25:19 Mother No current problems or disability [email or web address] Not available 06/03 08:25:20 Medical History No medical history recorded. Gynecological History Statement/Question Response Menses Monthly Y Current Control Method None Date of LMP 04/23/2024 Sexually Active? Y Obstetrics History GPAL:G 0 P 0 0 0 1 Type Value Living 1 Past Encounters Encounter ID Performer Location Encounter Start Date Encounter Closed Date Diagnosis/Indication Diagnosis SNOMED-CT Code Diagnosis ICD10 Code Diagnosis IMO Codes Diagnosis Note [id number] Volodymyr Ferrer MD [address] [place] [address] 06/09/2021 10:52:44 06/09/2021 12:42:49 Abdominal pain 70292433 R10.9 Intermitte nt RUQ abdominal pain for last one month or so. Get labs. Get RUQ abdominal ultrasound . I recommende d that she should seek an immediate medical attention i.e. go to a hospital emergency department (ER) right away should get abdominal pain again or any other symptoms or complaints . I recommende d to follow up with me after labs in a few days to discuss test results. Urinary incontinence 165 091237 R32 Get US. Establish care with Urologist Venereal d isease screening 911765832 Z11.3 Acute cystitis 51188468 N30.00 Acute cystitis. Take Macrobid as prescribed . Follow urine culture and labs. See us back or go to Er right away should she gets worse or develops any new symptoms or complaints . Follow up with us in 2 to 3 days. Urine preg agnes test positive 756200346 Z32.01 Start taking vitamins. No Hx of neural tube defects. Establish care with Gynecologi stCandelario Vomiting 358832132 R11.1 0 I asked patient to maintain an adequate hydration. Take Vitamin B6 as prescribed . See us back or go to ER right away should get worse or develop any new symptoms or complaints Chronic pe lvic pain of female 646114177 R10.2 Intermitte nt b.l. pelvic pain for last 2-3 yrs. Will refer to gynecologi st. I recommende d she should seek an immediate medical attention i.e. go to the hospital emergency department (ER) right away should get pelvic pain again or any other complaints or symptoms. [id number] [facility] [address] [place] [address] 07/14/2022 12:58:50 07/14/2022 14:12:50 Patient medical record not available [id number] Z76.89 Abnormal urine odor 8769 003 R82.90 Acute urin bryson tract infection 978257124 N39.0 Sensation as if urinary bladder still full 733373956 R39.14 [id number] [facility] [address] [place] [address] 07/28/2022 08:05:51 07/28/2022 09:33:30 Sensation as if urinary bladder still full 674240847 R39.14 07/28/22- empties well on us and PVR cath. Recurrent urinary tract infection 992883479 N39.0 -Urine sent today for PCR urine testing through [facility] for bacterial, fungal UTI panel. Patient me dical record not available [id number] Z76.89 -requested and pending. Overactive urinary bladder 330968642 N32.81 Mixed urin bryson incontinence 048944445 N39.46 Fatigue 72418869 R53.83 Body mass index 40+ - severely obese 040665285 Z68.41 Morbid obesity 847110780 E66.01 Pain of mu ltiple joints 20615293 M25.50 Vaginal discharge 248846 006 N89.8 [id number] [facility] [address] [place] [address] 01/10/2023 08:47:21 01/10/2023 10:51:37 Recurrent urinary tract infection 065930770 N39.0 -Urine sent today for PCR urine testing through [facility] for bacterial, fungal UTI panel. Sensation as if urinary bladder still full 123770038 R39.14 07/28/22- empties well on us and PVR cath. Overactive urinary bladder 237441296 N32.81 Mixed urin bryson incontinence 706918088 N39.46 Body mass index 40+ - severely obese 809448537 Z68.41 Morbid obesity 592842987 E66.01 Liver enzy mes level above reference range 166860401 R74.01 Erythrocyt e sedimentation rate outside reference range 708159986 R71.8 Vitamin D deficiency 347 12864 E55.9 Screening for malignant neoplasm of cervix 090555316 Z12.4 [id number] Anita Rangel CLINICAL TRIAL EDUCATOR [facility] [address] [place] [address] 07/25/2023 08:00:02 07/25/2023 09:28:21 Recurrent urinary tract infection 143310682 N39.0 Sensation as if urinary bladder still full 107331215 R39.14 07/28/22- empties well on us and PVR cath. Overactive urinary bladder 351148329 N32.81 Mixed urin bryson incontinence 351949291 N39.46 Body mass index 40+ - severely obese 231921440 Z68.41 Morbid obesity 201075209 E66.01 Screening for malignant neoplasm of cervix 451577350 Z12.4 Acute urin bryson tract infection 600777417 N39.0 Venereal d isease screening 427718981 Z11.3 [id number] [facility] [address] [place] [address] 06/03/2024 08:14:39 06/03/2024 08:46:48 Pilar cyst of scalp 320877741 L72.11 Acutely infected, will send in continued dose of antibiotic at this time. Recommende d also using a antimicrob iobial soap to clean the area. Patient argeeable. Will send for general surgery referral to assist in cyst removal once acute infection has subsided. Patient advised to follow up as needed if the lesion does not improve over the next two weeks. Body mass index 40+ - severely obese 159881142 Z68.45 Health Concerns Section Related Observation LastModified by Organization Detai ls LastModified Time None Recorded Concern Status LastModified by Organization Details LastModified Time None Recorded Advance Directives Directive N: Payers Insurance Date Sequence Insurance Name Policy Number Policy Gill Covered Member ID Gill Member ID Guarantor Name 08/05/[address] [facility] (MEDICAID HMO) Dorita Baker [id number] Dorita Baker 08/05/2024 [place] [employer] (MEDICAID) Dorita Baker [id number] Dorita Baker Notes Date Note Type Note Provider Name and Address Organization Details Recorded Time 07/14/2022 text/html Lower Urinary Tr act Symptoms (LUTS)Reported by PatientHPIFor associated symptoms, patient reportsstraining,empt ies poorly (double voiding with little spurts. then when she stands she will still have a little leakage.),urgency,tc quency,dysuria (not dysuria but its uncomfortable),mixed incontinence (ishna- moderate, uui- moderate. sometimes un-aware.),nocturia 2 times a night, andurine odorbut reportsno abdominal pain,no groin pain,no flank pain,no low back pain,no chills,no fever,no constipation,no diarrhea,no nausea,no vomiting,no temperaure,good force of stream,no post void dribbling,no hesitancy, andno gross hematuria. For location, patient reportsbladder. For quality, patient reportsworsening. For onset/timing, patient reports> 1 year. For duration, patient reportsconstant. For context, patient reportsnumber of pregnancies: 1,number of vaginal deliveries: 1, andprevious pelvic surgery (age 12 - exploratory lap- for endometriosis.). pt is here to est care with urology.pt has c/o incontinence all day, foul smelling urine. problem for a few years now. reports recurrent uti's. states she takes antibiotics but then symptoms never fully go away. reports US was done last year in june. wanted her to f/u with urology [facility]. pt kept putting this off. no pcp.patrick villalta states she last seen [facility]. 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 Anita Rangel, CLINICAL TRIAL EDUCATOR [address], [place], [address], [place] - [facility] 07/14/2022 14:11:43 07/28/2022 text/html Lower Urinary Tr act Symptoms (LUTS)Reported by PatientHPIFor associated symptoms, patient reportsstraining,empt ies poorly (double voiding with little spurts. then when she stands she will still have a little leakage.),urgency,tc quency,dysuria (not dysuria but its uncomfortable),mixed incontinence (ishan- moderate, uui- moderate. sometimes un-aware.),nocturia 2 times a night, andurine odorbut reportsno abdominal pain,no groin pain,no flank pain,no low back pain,no chills,no fever,no constipation,no diarrhea,no nausea,no vomiting,no temperaure,good force of stream,no post void dribbling,no hesitancy, andno gross hematuria. For location, patient reportsbladder. For quality, patient reportsworsening. For onset/timing, patient reports> 1 year. For duration, patient reportsconstant. For context, patient reportsnumber of pregnancies: 1,number of vaginal deliveries: 1, andprevious pelvic surgery (age 12 - exploratory lap- for endometriosis.).-07/14- UCx- enterococcus faecalis- (tx macrobid 100mg BID x 10days) -07/21/22- US retroperitoneum complete- per report- normal size kidneys bilat. limited visualization of kidneys d/t habitus. No hydronephrosis. bladder volume 181ml, PVR 7ml. pt is here to est care with urology.pt has c/o incontinence all day, foul smelling urine. problem for a few years now. reports recurrent uti's. states she takes antibiotics but then symptoms never fully go away. reports US was done last year in june. wanted her to f/u with urology amb[facility]. pt kept putting this off. no pcp.patrick villalta states she last seen [facility]. 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 it has resolved since being on abx.states she has a f/u sched with cards later this month. states chest pain has gone away since starting abx.requests labs. states i know something is wrong with my body but no one has listened or figured it out yet . Anita Rangel, CLINICAL TRIAL EDUCATOR [address], [place], [address], [place] - [facility] 07/28/2022 09:31:19 01/10/2023 text/html Lower Urinary Tr act Symptoms (LUTS)Reported by PatientHPIFor associated symptoms, patient reportsstraining,empt ies poorly (double voiding with little spurts. then when she stands she will still have a little leakage.),urgency,tc quency,mixed incontinence (ishan- moderate, uui- moderate. sometimes un-aware.),nocturia 2 times a night, andurine odorbut reportsno abdominal pain,no groin pain,no flank pain,no low back pain,no chills,no fever,no constipation,no diarrhea,no nausea,no vomiting,no temperaure,good force of stream,no post void dribbling,no hesitancy,no dysuria, andno gross hematuria. For location, patient reportsbladder. For quality, patient reportsworsening. For onset/timing, patient reports> 1 year. For duration, patient reportsconstant. For context, patient reportsnumber of pregnancies: 1,number of vaginal deliveries: 1, andprevious pelvic surgery (age 12 - exploratory lap- for endometriosis.).-07/14- UCx- enterococcus faecalis- (tx macrobid 100mg BID x 10days) -07/21/22- US retroperitoneum complete- per report- normal size kidneys bilat. limited visualization of kidneys d/t habitus. No hydronephrosis. bladder volume 181ml, PVR 7ml. pt is here to est care with urology.pt has c/o incontinence all day, foul smelling urine. problem for a few years now. reports recurrent uti's. states she takes antibiotics but then symptoms never fully go away. reports US was done last year in june. wanted her to f/u with urology ambreen. pt kept putting this off. no pcp.poss rutis states she last seen [facility]. 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 Saw cardio- Dr Burgos- states he told her that she thinks her chest pain was from endocarditis from her unresolved chronic UTI's is possible.. it has resolved since being on abx. 01/10/23 PT comes for fu. multiple different complaints.states bladder leakage, took myrbetriq but ran out, noticed improvement when taking vaginal discharge- mouscousy thick clear/ yellow fatigue, feeling of unwellness, mild intermittent SOA. reports she does need to get stress test done and fu with loreto right flank pain occasionally notes that shes worried about liver and kidney function? wants labs reports checked her UA recent at worked and it had high urea. took cephalexin. Anita Rangel, CLINICAL TRIAL EDUCATOR [address], [place], [address], [place] - [facility] 01/17/2023 11:28:10 07/25/2023 text/html Lower Urinary Tr act Symptoms (LUTS)Reported by PatientHPIFor associated symptoms, patient reportsstraining,empt ies poorly (double voiding with little spurts. then when she stands she will still have a little leakage.),urgency,tc quency,mixed incontinence (ishan- moderate, uui- moderate. sometimes un-aware.),nocturia 2 times a night, andurine odorbut reportsno abdominal pain,no groin pain,no flank pain,no low back pain,no chills,no fever,no constipation,no diarrhea,no nausea,no vomiting,no temperaure,good force of stream,no post void dribbling,no hesitancy,no dysuria, andno gross hematuria. For location, patient reportsbladder. For quality, patient reportsworsening. For onset/timing, patient reports> 1 year. For duration, patient reportsconstant. For context, patient reportsnumber of pregnancies: 1,number of vaginal deliveries: 1, andprevious pelvic surgery (age 12 - exploratory lap- for endometriosis.).-07/14- UCx- enterococcus faecalis- (tx macrobid 100mg BID x 10days) -07/21/22- US retroperitoneum complete- per report- normal size kidneys bilat. limited visualization of kidneys d/t habitus. No hydronephrosis. bladder volume 181ml, PVR 7ml. -01/11/24- CT- positive (tx azithromycin 1G tab ONCE. )UCX negative. 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 07/25/23comes to followup Still has not established a PCP.also did not see PROFESSOR OF FRENCH for her annual.has gained 27lbs in the last 6 months. reports myrbetriq 25mg daily didnt help with incontinence. prior said that it did help. ISHAN is worsening.was not able to make it to PFPT d/t family issues and work schedule. Saw cardio- Dr Burgos- states he told her that she thinks her chest pain was from endocarditis from her unresolved chronic UTI's but endocarditis is gone now she reports. needs to fu with him again. She states she has still had uti's and she frequently tests her urine while working and takes antibiotics without sending cultures. Urine always shows large leuks. prior had CT and treated lives with grandparents, takes care of them. single mom. works FT job in [employer] [place] [employer] [place]. grandmother had stroke and is paralyzed. grandfather has cancer as well. Anita Rangel, CLINICAL TRIAL EDUCATOR [address], [place], [address], [place] - [facility] 11/01/2023 16:59:09 06/03/2024 text/html ROS as noted in the HPI Went to ED at [facility] in [place], will send records request. States she has had a cyst on her head, was having pain, right sided head pain. States the BEAUTY SPECIALIST put a large bore needle in to start the draining process, starts to drain a few days later. Greenish-yellow drainage, currently on ABX. Started on Sunday, has 7 days worth. Denies any fevers during this time. Mine Hays, DO [address], [place], [address], [place] - [facility] 06/03/2024 15:29:50 OBGyn Episode No OBEpisode recorded.
--- OUTSIDE RECORDS SUMMARY | 2025-02-17 14:31 | XMS_ITS | Clinical Summary ---
Author Organization [facility] Address [address], [address] [place] [address] Care Team Providers Care Market Development Specialist Name Role Phone Unavailable Primary Care Provider Unavailabl e Allergies Active Allergy Reactions Criticality Noted Date Comments Penicillins 10/29/2010 Sulfa Antibiotics 10/29/2010 Medications METHADONE HCL PO Take by mouth Active ondansetron (ZOFRAN ODT) 4 MG disintegrating tablet Take 1 tablet by mouth 4 times daily as needed for Nausea or Vomiting 20 tablet 8 Active Social History Tobacco Use Types Packs/Day Years Used Date Smoking Tobacco: Every Day Cigarettes Smokeless Tobacco: Never Alcohol Use Standard Drinks/Week Comments No 0 (1 standard drink = 0.6 oz pur e alcohol) Comments Unknown Sex and Gender Information Value Date Recorded Sex Assigned at Not on file Legal Sex Female 9:08 PM EST Gender Identity Not on file Sexual Orientation Not on file Last Filed Vital Signs Vital Sign Reading Time Taken Comments Blood Pressure 103/65 09/09/2017 7:06 AM EDT Pulse 72 09/09/2017 7:06 AM EDT Temperature 36.7 C (98 F) 09/09/2017 4:33 AM EDT Respiratory Rate 16 09/09/2017 7:06 AM EDT Oxygen Saturation 98% 09/09/2017 4:33 AM EDT Inhaled Oxygen Concentration - - Weight 98 kg (216 lb 0.8 oz) 09/09/2017 4:33 AM EDT Height 172.7 cm (5' 8 ) 09/09/2017 4:33 AM EDT Body Mass Index 32.85 09/09/2017 4:33 AM EDT Plan of Treatment Not on file
[2025-02-17 16:47] LABS: Free T4 (Free Thyroxine) 1.11 ng/dl (0.78-2.19)
[2025-02-17 17:02] LABS: Thyroid Stimulating Hormone 0.57 uIU/mL (0.465-4.68)
== END 2025-02-17 23:59 | disposition home or self-care (01) ==
LOC: LAB 14:01
PROVIDERS: PCP Family Medicine; Visit Provider Student in an Organized Health Care Education/Training Program
DX: E05.20 Thyrotoxicosis with toxic multinodular goiter without thyrotoxic crisis or storm (principal)
CPT/HCPCS: 36415; 84439; 84443

== ENCOUNTER 2025-03-13 08:03 | Outpatient (CLI) | payer OTHER, SELFPAY ==
--- OUTSIDE RECORDS SUMMARY | 2025-03-13 08:09 | XMS_ITS | Clinical Summary ---
Author Organization [facility] Address [address] [place] [id number] Care Team Providers Care Clinical Data Assistant Name Role Phone Unavailable Primary Care Provider Unavailabl e Social History Tobacco Use Types Packs/Day Years Used Date Smoking Tobacco: Never Assessed Comments Unknown Sex and Gender Information Value Date Recorded Sex Assigned at Not on file Legal Sex Female 1:30 PM EDT Gender Identity Not on file Sexual Orientation Not on file Plan of Treatment Health Maintenance Due Date Last Done Comments Annual Gynecologic Pelvic an d Breast Exam 1990 TDAP/TD VACCINES (1 - Tdap) 2009 PAP SMEAR 09/26/2011 ANNUAL PHYSICAL 07/24/2024 HEPATITIS C SCREENING 07/24/2024 INFLUENZA VACCINE 11/21/2024 Pneumococcal Vaccine 0-49 Aged Out No longer eligible based on patient's age to complete this topic Insurance [facility]
--- OUTSIDE RECORDS SUMMARY | 2025-03-13 08:10 | XMS_ITS | Continuity of Care Document ---
Author Organization [facility], [facility] Address [address] [place] [place] [address] Assessment No assessment recorded. Plan of Treatment [...] Address Organization Details Recorded Time Abdominal pain 31718183 Active 2021 Ali Nabil [facility], [place] - [facility] 2 17:32:32 Pilar cyst of scalp 817317937 Active 2024 Lizzette Pascual DO [address], [place], [address], [place] - [facility] 5 08:47:37 Morbid obesity 451624723 Active 2024 Lizzette Pascual DO [address], [place], [address], [place] - [facility] 5 08:48:02 Genuine stress incontinence 68833753 Active 2024 Reid Adam APRN [address], [place], [address], [place] - [facility] 5 11:04:23 Problem Notes None recorded. Procedures Surgical History Date Name Laterality Status Provider Name and Address Organization Details Recorded Time 07/29/19 23 In and Out Catheterization completed Anita Rangel APRN [address], [place], [address] [place] - [facility] 07/28/2022 09:25:42 11/22/19 04 Endometrial Biopsy completed Mariella Miles [place] - [facility] 02/23/2025 09:10:25 Imaging Results None recorded. Procedure Notes None recorded. Medical Equipment None Reported. Allergies Allergen ID Allergen Name Allergen Category Reaction Reaction Severity Criticality Documentation Date Start Date Code Code System Note Provider Name and Address Organization Details Recorded Time 690923 Product containin g penicilli n (product) medicatio n rash Not available Not available 06/09/2021 [id number] [place], [place] - [facility] 2 11:12:20 [id number] Substance with sulfonami de structure and antibacte rial mechanism of action (substanc e) medicatio n rash Not available Not available 06/09/2021 [id number] [address] [place], [place] [facility] 11:13:05 Medications Name Sig Start Date Stop [...] day by oral route for 7 days. 02/23 completed Not Available Not Available Not Available ergocalcifer ol (vitamin D2) 1,250 mcg (50,000 unit) capsule Take 1 capsule twice a week by oral route for 91 days. 06/03 completed Not Available Not Available Not Available chlorhexidin e gluconate 4 % topical liquid 02/23 completed Not Available Not Available Not Available [...] mL twice a day by topical route. 02/23 completed Not Available Not Available Not Available Vitals Date Recorded Body height Body mass index (BMI) Body weight Respiratory rate Body temperature Oxygen saturation Heart rate Systolic And Diastolic Provider Name and Address Organization Details Last Updated DateTime 5 168.91 cm 41.8 kg/m2 855934. 79 g 18 /min 98 [degF] 97 % 74 /min 126/78 mm[Hg] Mariella Miles [place] - [facility] 09:10:00 Social History Question Answer Notes LastModified by Organizat ion Details LastModified Time Tobacco Smoking Status Former Smoker Mariella Miles null, [place] - [facility] 02/23/2025 09:11:39 Do You Have An Advance Directive? No [email or web address] Information not available 06/09/2021 Are You Blind Or Do You Have Difficulty Seeing? No Information not available 06/09/2021 Is Blood Transfusion Acceptable In An Emergency? Yes Information not available 02/23/2025 What Is Your Level Of Caffeine Consumption? Heavy Information not available 02/23/2025 How Much Tobacco Do You Chew? None Information not available 02/23/2025 In The 14 Days Before Symptom Onset, Have You Had Close Contact With A Laboratory-confir med COVID-19 While That Case Was Ill? No [email or web address] Information not available 06/03/2024 In The 14 Days Before Symptom Onset, Have You Had Close Contact With A Person Who Is Under Investigation For COVID-19 While That Person Was Ill? No [email or web address] Information not available 06/03/2024 Have You Been To An Area Known To Be High Risk For COVID-19? No [email or web address] Information not available 06/03/2024 Are You Deaf Or Do You Have Serious Difficulty Hearing? No [email or web address] Information not available 06/09/2021 What Type Of Diet Are You Following? REGULAR [email or web address] Information not available 06/09/2021 Have You Processed Blood Or Body Fluids From An Ebola Virus Disease Patient Without Appropriate PPE? No [email or web address] Information not available 06/03/2024 Do You Reside In Or Have You Traveled To An Area Where Ebola Virus Transmission Is Active? No [email or web address] Information not available 06/03/2024 What Is The Highest Grade Or Level Of School You Have Completed Or The Highest Degree You Have Received? [id number] [email or web address] Information not available 06/09/2021 Have There Been Any Changes To Your Family Or Social Situation? No [email or web address] Information no t available 06/03/2024 What Is The Fluoride Status Of Your Home? Unknown Information not available 02/23/2025 When Did You Quit Smoking? 1-5yearssin celastcigar ette Stopped In 2020 Information not available 02/23/2025 Have You Recently Or Are You Planning To Travel To An Area With Zika Virus? No [email or web address] Information not available 06/03/2024 Last Menstrual Period? 04/23/2024 [email or web address] Information not available 06/03/2024 Do You Have A Medical Power Of Licensed Practical Nurse? No [email or web address] Information not available 06/09/2021 What Was The Date Of Your Most Recent Tobacco Screening? 06/03/2024 Information not available 06/03/2024 How Many Children Do You Have? 1 [email or web address] Information not available 06/09/2021 What Is Your Current Pack Years? 10-19packye ars [email or web address] Information not available 06/09/2021 Do You Use Protection During Sex? No Information not available 02/23/2025 Do You Use Protection Against STDs? No Information not available 02/23/2025 What Is Your Relationship Status? Single [email or web address] Information not available 06/09/2021 Do You Use Your Seat Belt Or Car Seat Routinely? Yes Information not available 02/23/2025 Are You Sexually Active? No Information not available 06/09/2021 Do You Have Smoke And Carbon Monoxide Detectors In Your Home? Yes [email or web address] Information not available 06/09/2021 At What Age Did You Start Smoking Tobacco? 13 Information not available 02/23/2025 Are You Passively Exposed To Smoke? Yes Information no t available 02/23/2025 How Much Tobacco Do You Smoke? 0.25 PPD Information not available 02/23/2025 Do You Use Sunscreen Routinely? No Information not available 02/23/2025 Has Tobacco Cessation Counseling Been Provided? No [email or web address] Information not available 06/09/2021 How Many Years Have You Smoked Tobacco? 16 Information not available 02/23/2025 Do You Have Difficulty Walking Or Climbing Stairs? No [email or web address] Information not available 06/09/2021 How Many Years Have You Used E-cigarettes Or Vape? 3 [email or web address] Information not available 06/09/2021 Sex: Female Functional Status Question Answer Note LastModified by Organizat ion Details LastModified Time Do you use any illicit or recreational drugs? No [email or web address] Information not available 06/09/2021 Do you or have you ever used any other forms of tobacco or nicotine? Yes [email or web address] Information not available 06/09/2021 What is your level of alcohol consumption? None [email or web address] Information not available 06/09/2021 Do you or have you ever used smokeless tobacco? Never used smokeless tobacco Information not available 02/23/2025 Are you currently employed? No [email or web address] Information not available 06/09/2021 Do you have transportation difficulties? No [email or web address] Information not available 06/09/2021 Are you able to walk independently without assistance or assistive devices? YESASSIST [email or web address] Information not available 06/09/2021 Do you have difficulty doing errands alone? No [email or web address] Information not available 06/09/2021 Are you able to care for yourself independently? Yes [email or web address] Information not available 06/09/2021 Do you have difficulty dressing, bathing, grooming, or toileting? No [email or web address] Information not available 06/09/2021 Do you or have you ever used e-cigarettes or vape? Current user of electronic cigarettes started three years ago [email or web address] Information not available 01/10/2023 What is your exercise level? None [email or web address] Information not available 06/09/2021 Mental Status Question Answer Note LastModified by Organizat ion Details LastModified Time Do you feel stressed (tense, restless, nervous, or anxious, or unable to sleep at night)? [id number] Information not available 02/23/2025 Do you have difficulty concentrating, remembering or making decisions? No [email or web address] Information no t available 06/09/2021 Family History Relationship Description Onset Age of this Age Resolved Age Notes LastModified by Organization Details LastModified Time Father No current problems or disability [email or web address] Not available 02/23 09:10:25 Mother No current problems or disability [email or web address] Not available 02/23 09:10:25 Mother Anxiety disorder [email or web address] Not available 2024 09:10:25 Mother Depressive disorder [email or web address] Not available 2024 09:10:25 Maternal Grandfather Hypertensive disorder [email or web address] Not available 2024 09:10:25 Medical History Condition Response Endometriosis Y Abnormal PAP Y Gynecological History Statement/Question Response Abnormal Pap Y Flow Moderate Date of LMP 02/02/2025 Post Menopausal Bleeding N STIs/STDs N HPV Vaccine N Duration of Flow (days) 7 Current Control Method None Age at Menarche 10 Age at First Child 23 Sexually Active? N Menses Monthly Y Sexual Problems? N LMP Approximate Hormone Replacement Therapy N Obstetrics History GPAL:G 0 P 0 0 0 1 Type Value Living 1 Immunizations Vaccine Type Date Status Note Provider Nam e and Address Organization Details Recorded Time DTaP, unspecified formulation 6 completed Not Available [facility] 02/23/2025 08:48:20 MMR 6 completed Not Available [facility] 02/23/2025 08:48:20 OPV, trivalent 6 completed Not Available [facility] 02/23/2025 08:48:20 Hep B, adolescent or pediatric 2 completed Not Available [facility] 02/23/2025 08:48:20 Hep B, adolescent or pediatric 2 completed Not Available [facility] 02/23/2025 08:48:20 Hep B, adolescent or pediatric 3 completed Not Available [facility] 02/23/2025 08:48:20 Tdap 6 completed Not Available [facility] 02/23/2025 08:48:20 rubella 3 completed Not Available [facility] 02/23/2025 08:48:20 Tdap 4 completed Not Available [facility] 02/23/2025 08:48:20 Past Encounters Encounter ID Performer Location Encounter Start Date Encounter Closed Date Diagnosis/Indication Diagnosis SNOMED-CT Code Diagnosis ICD10 Code Diagnosis IMO Codes Diagnosis Note [id number] Reid Adam APRN [address] [address] 02/23/2025 08:46:03 02/23/2025 10:26:12 Genuine stress incontinence [id number] N39.3 82684 pad order sent Health Concerns Section Related Observation LastModified by Organization Detai ls LastModified Time None Recorded Concern Status LastModified by Organization Details LastModified Time None Recorded Payers Encounter Date Sequence Insurance Name Policy Number Policy Gill Covered Member ID Gill Member ID Guarantor Name 02/23/2025 1 [employer] [facility] (MEDICAID HMO) Dorita Baker [id number] Dorita Baker Notes Date Note Type Note Provider Name and Address Organization Details Recorded Time 02/23/2025 text/html ROS as noted in the HPI 34 year old female who presents to the office today with concerns of incontinence--herber oing for a long time. see specialist years ago and went to pelvic floor training still having accidents. would like order to help cover pads. Reid Adam, MACHINE REPAIRMAN [address], [place], [address], [place] - [facility] 02/23/2025 11:14:13 OBGyn Episode No OBEpisode recorded.
--- OUTSIDE RECORDS SUMMARY | 2025-03-13 08:10 | XMS_ITS | Data Portability ---
Author Organization [facility] Address [address] [place] [address] Assessment Encounter Date Assessment Date Assessment LastModified by Organization Details LastModified Time 07/28/2022 07/28/2022 -finish macrobid as rx BID [...] to face, and in coordination of care. [email or web address] Not available 07/28/2022 09:29:18 01/10/2023 01/10/2023 -ucx pending -start myrbetriq 25mg daily for OAB/UUI. -referred to PFPT. -comprehensive labs ordered. -continue fu as scheduled with cardio -needs to see SORTER LUMBER STRAIGHTENER too -discussed likely multimodal approach with bladder [...] Number of sexual partners: _reports zero recent in Not available 01/17/2023 11:27:51 07/25/2023 07/25/2023 -ucx pending -start gemtesa 75mg daily for OAB/UUI. -try online [facility] PFPT. encouraged weight loss. -continue fu as scheduled with cardio -needs to see SORTER LUMBER STRAIGHTENER for annual and establish PCP -discussed likely [...] in coordination of care. [email or web address] Not available 11/01/2023 16:59:05 Plan of Treatment Reminders Order Date Submit Date Provider Last Modified By Organization Details Last Modified Time Details Appointments None recorded. Lab chlamydia trachomatis + neisseria gonorrhoeae + trichomonas vaginalis DNA panel, DEIDRE+probe, urine 2023 024 [facility], [address] [place] [address], [facility], [place], [address], 4 14:11:12 urinalysis, dipstick [address] [facility], [address] [facility], [place], [address], 4 09:32:31 culture, urine 2023 024 [facility], [address] , [facility], [place], [address], 4 14:11:13 urinalysis, dipstick 2022 023 [facility] 3 [facility], [address], [place], [address], 3 10:42:26 CBC w/ auto diff 2022 023 [facility], [address], [address], [place], [address], 3 10:12:06 unlisted lab - CT/GC/TV DEIDRE+M genitalium ur. 2022 023 [facility], [address], [address] [address], [place], [address], 3 10:12:08 culture, urine 2022 023 [facility], [address], [address], [place], [address], 3 10:12:11 ESR (erythrocyt e sedimentati on rate), blood 2022 023 [facility], [address], [address], [place], [address], 3 10:12:10 C reactive protein, QN, serum or plasma 2022 023 [facility], [address], [address], [place], [address], 3 10:12:10 vitamin D, 25-hydroxy, total, serum 2022 023 [facility], [address], [address], [place], [address], 3 10:12:09 CMP, serum or plasma 2022 023 [facility], [address], [place] [address], [place], [address], 3 10:12:07 urinalysis, dipstick 2022 023 [facility] 3 [facility], [address], [place], [address], 3 09:21:00 HbA1c (hemoglobin A1c), blood 2022 023 [facility], [address], [address], [place], [address], 3 16:12:16 lipid panel, serum 2022 023 [facility], [address], [address], [place], [address], 3 16:12:13 TSH + free T4, serum 2022 023 [facility], [address], [address], [place], [address], 3 16:12:11 insulin, serum 2022 023 [facility], [address], [address], [place], [address], 3 16:12:20 CBC w/ auto diff 2022 023 [facility], [address], [address], [place], [address], 3 16:12:12 vitamin D, 25-hydroxy, total, serum 2022 023 [facility], [address], [place] [address], [place], [address], 3 16:12:17 vitamin B12 + folate, serum or blood 2022 023 [facility], [address], [address], [place], [address], 3 16:12:15 CMP, serum or plasma 2022 023 [facility], [address], [place], [place], [address], 3 16:12:13 iron + total iron-bindin g capacity (TIBC), serum 2022 023 [facility], [address], [address], [place], [address], 3 16:12:14 thyroperoxi dase Ab, serum 2022 023 [facility], [address], [place], [place], [address], 3 16:12:19 vaginal pathogens panel, DEIDRE+probe, vaginal fluid 2022 023 [facility], [address], [place] [address], [place], [address], 3 08:08:57 ccp (cyclic citrullinat ed peptide) iga+igg, serum 2022 023 [facility], [address], [address], [place], [address], 3 16:12:17 tata maradiaga virus Ab panel, serum 2022 023 [facility], [address], [address], [place], [address], 3 16:12:15 ESR (erythrocyt e sedimentati on rate), blood 2022 023 [facility], [address], [address], [place], [address], 3 16:12:18 C reactive protein, QN, serum or plasma 2022 023 [facility], [address], [address], [place], [address], 3 16:12:20 ALEXUS (antinuclea r antibodies) screen, serum 2022 023 [facility], [address], [address], [place], [address], 3 16:12:18 Referral general surgeon referral 2024 025 [email or web address] Not available 5 14:53:21 gynecologis t referral - annual 2023 024 [email or web address] Not available 4 13:57:47 gynecologis t referral 2022 023 [email or web address] Not available 3 16:59:22 pelvic floor therapy referral - MIGUEL/OAB. PFPT eval and treat. [address] [facility], [address] [place], [address], 5 13:33:20 pelvic floor therapy referral - PFPT, overactive bladder and mixed urinary incontinenc e. evaluate and treat. 2022 023 [facility], [address] [facility], [place], [address], 3 05:01:49 Procedures None recorded. Surgeries None recorded. Imaging US, retroperito neum, complete - pre/pvr 2023 024 [email or web address] Not available 4 10:16:04 Medication Orders cephalexin 500 mg capsule 2024 025 [facility] [id number], [address] [facility] , [place], [address], 5 09:10:43 Antimicrobi al 0.95 % topical cleanser 2024 025 [facility] [id number], [address] [facility] , [place], [address], 5 09:10:41 cephalexin 500 mg capsule 2023 024 [facility] [id number], [address] [facility] , [place], [address], 5 09:10:40 Macrobid 100 mg capsule 2023 025 [facility] [id number], [address] [facility] , [place], [address], 5 08:24:13 Gemtesa 75 mg tablet [email or web address] [facility] [address] [facility] [id number], [address] [facility] , [place], [address], 5 08:24:04 Gemtesa 75 mg tablet 2023 025 [facility] [id number], [address] [facility] , [place], [address], 5 08:24:06 Myrbetriq 25 mg tablet,exte nded release 2022 023 [email or web address] Not available 3 14:15:01 Myrbetriq 25 mg tablet,exte nded release 2022 023 [email or web address] [facility] [id number], [address] [facility] , [place], [address], 3 14:15:01 nitrofurant oin monohydrate /macrocryst als 100 mg capsule [email or web address] [facility] [address] [facility] [id number], [address] [facility] , [place], [address], 5 08:24:10 Myrbetriq 25 mg tablet,exte nded release 2022 023 [email or web address] Not available 14:15:01 Myrbetriq 25 mg tablet,exte nded release 2022 023 [email or web address] [facility] [id number], [address] [place] [address] , [place], [address], 14:15:01 Patient TargetsNo targets recorded. Patient Instructions Encounter Date Encounter Id Patient Instructions Last Modified By Organization Details Last Modified Time 07/28/2022 [id number] body mass index: care instructions Not available 07/28/2022 09:20:58 learning about healthy weight Not available 07/28/2022 09:20:59 Urge Incontinence: Care Instructions Not available 07/28/2022 09:30:25 Stress Incontinence: Care Instructions Not available 07/28/2022 09:30:25 kegel exercises: care instructions Not available 07/28/2022 09:30:25 Starting a Weight-Loss Plan: Care Instructions Not available 07/28/2022 09:30:37 01/10/2023 [id number] body mass index: care instructions Not available 01/10/2023 10:42:25 learning about healthy weight Not available 01/10/2023 10:42:26 Urge Incontinence: Care Instructions Not available 01/10/2023 10:42:25 Stress Incontinence: Care Instructions Not available 01/10/2023 10:42:26 kegel exercises: care instructions Not available 01/10/2023 10:42:26 Starting a Weight-Loss Plan: Care Instructions Not available 01/10/2023 10:42:25 07/25/2023 [id number] exposure to sexually transmitted infections: care instructions Not available 07/25/2023 09:32:25 body mass index: care instructions Not available 07/25/2023 09:32:25 learning about healthy weight Not available 07/25/2023 09:32:26 Urge Incontinence: Care Instructions Not available 07/25/2023 09:32:26 Stress Incontinence: Care Instructions Not available 07/25/2023 09:32:25 kegel exercises: care instructions [email or web address] Not available 07/25/2023 09:32:25 Starting a Weight-Loss Plan: Care Instructions Not available 07/25/2023 09:32:25 06/03/2024 [id number] body mass index: care instructions [email or web address] Not available 06/03/2024 08:54:40 learning about healthy weight [email or web address] Not available 06/03/2024 08:54:40 I have seen and examined the patient and agree with the plan of care. - Dr. Lis [email or web address] Not available 06/03/2024 15:29:31 Reason for Referral Pelvic Floor Therapy Referra l for Mixed urinary incontinence PFPT, overactive bladder and mixed urinary incontinence. evaluate and treat. Referring Physician: Anita Rangel [facility], Encounter Date: 07/28/2022 Circulation Man Referral for Sc reening for malignant neoplasm of cervix Referring Physician: Anita Rangel [facility], Encounter Date: 01/10/2023 Pelvic Floor Therapy Referra l for Mixed urinary incontinence MIGUEL/OAB. PFPT eval and treat. Referring Physician: Anita Rangel [facility], Encounter Date: 01/10/2023 Circulation Man Referral for Sc reening for malignant neoplasm of cervix annual Referring Physician: Anita Rangel [facility], Encounter Date: 07/25/2023 General Surgeon Referral for Pilar cyst of scalp Referring Physician: Lizzette Pascaul [facility], Encounter Date: 06/03/2024 Results Created Date Observation Date Name Description Value Unit Range Abnormal Flag Note LastModifiedBy Organization Detail LastModifiedTime 07/15/1907/18/2022 URINE CULTU RE,CO MPREH ENSIV E urine culture,comp rehensive FINAL REPORT abnormal Not Available [facility] ([facility]) [address] [facility], [place], [address], 07/18/2022 16:13:17 07/15/1907/18/2022 URINE CULTU RE,CO MPREH ENSIV E result 1 ENTERO COCCUS FAECAL IS abnormal For Enter ococc us speci es, amino glyco sides (exce pt for high- level resis tance katairna lawton) , cepha lospo rins, clind amyci [...] by Enter ococc us. Not Available [facility] ([facility]) [address] [facility], [place], [address], 07/18/2022 16:13:17 07/15/1907/18/2022 URINE CULTU RE,CO MPREH [...] S Vanco mycin S Not Available [facility] ([facility]) [address] [facility], [place], [address], 07/18/2022 16:13:17 07/15/1907/14/2022 urina lysis , dipst ick Leukocytes Large Not Available [facility] [address], [place], [address], 07/14/2022 09:52:12 07/15/1907/1407/14/2022 urina lysis , dipst ick Nitrite negati ve Not Available [facility] [address] [place], [address], 07/14/2022 09:52:12 07/15/19 23 07/14/2022 urina lysis , dipst ick Urobilinogen 1 Not Available [facility] [address] [place], [address], 07/14/2022 09:52:12 07/15/19 23 07/14/2022 urina lysis , dipst ick Protein 30 Not Available [facility] [address] [place], [address], 07/14/2022 09:52:12 07/15/19 23 07/14/2022 urina lysis , dipst ick pH 7.0 Not Available [facility] [address] [place], [address], 07/14/2022 09:52:12 07/15/19 23 07/14/2022 urina lysis , dipst ick Blood Negati ve Not Available [facility] [address] [place], [address], 07/14/2022 09:52:12 07/15/19 23 07/14/2022 urina lysis , dipst ick Specific [place] 1.025 Not Available [facility] [address] [place], [address], 07/14/2022 09:52:12 07/15/19 23 07/14/2022 urina lysis , dipst ick Ketone Negati ve Not Available [facility] [address] [place], [address], 07/14/2022 09:52:12 07/15/19 23 07/14/2022 urina lysis , dipst ick Bilirubin Negati ve Not Available [facility] [address] [place], [address], 07/14/2022 09:52:12 07/15/19 23 07/14/2022 urina lysis , dipst ick Glucose Negati ve Not Available [facility] [address] [place], [address], 07/14/2022 09:52:12 07/15/19 23 07/14/2022 urina lysis , dipst ick Appearance Cloudy Not Available [facility] [address] [place], [address], 07/14/2022 09:52:12 07/15/19 23 07/14/2022 urina lysis , dipst ick Color Stanly Not Available [facility] [address] [place] [place], [address], 07/14/2022 09:52:12 07/29/19 23 07/30/2022 NUSWA B VAGIN ITIS PLUS (VG+) atopobium vaginae High - 2 score abnormal Not Available [facility] ([facility]) [address] [place], [address], 07/31/2022 08:08:57 07/29/19 23 07/30/2022 NUSWA B VAGIN ITIS PLUS (VG+) bvab 2 High - 2 score abnormal Not Available [facility] ([facility]) [address] [place], [address], 07/31/2022 08:08:57 07/29/19 23 07/30/2022 NUSWA B [...] Drug Admin istra tion. Not Available [facility] ([facility]) [address] [place], [address], 07/31/2022 08:08:57 07/29/19 23 07/30/2022 NUSWA B VAGIN ITIS PLUS (VG+) selina albicans, DEIDRE Negati ve negati ve Not Available [facility] ([facility]) [address] [place], [address], 07/31/2022 08:08:57 07/29/19 23 07/30/2022 NUSWA B VAGIN ITIS PLUS (VG+) selina glabrata, DEIDRE Negati ve negati ve Not Available [facility] ([facility]) [address] [place], [address], 07/31/2022 08:08:57 07/29/19 23 07/31/2022 NUSWA B VAGIN ITIS PLUS (VG+) trich vag by DEIDRE Negati ve negati ve Not Available [facility] ([facility]) [address] [place], [address], 07/31/2022 08:08:57 07/29/19 23 07/31/2022 NUSWA B VAGIN ITIS PLUS (VG+) chlamydia trachomatis, DEIDRE Negati ve negati ve Not Available [facility] ([facility]) [address] [place], [address], 07/31/2022 08:08:57 07/29/19 23 07/31/2022 NUSWA B VAGIN ITIS PLUS (VG+) neisseria gonorrhoeae, DEIDRE Negati ve negati ve Not Available [facility] ([facility]) [address] [place], [address], 07/31/2022 08:08:57 07/29/19 23 07/29/2022 TSH+F REE T4 TSH 1.470 uIU/m L 0.450- 4.500 Not Available [facility] ([facility]) [address] [place], [address], 07/31/2022 16:12:11 07/29/19 23 07/29/2022 TSH+F REE T4 T4,free(dire ct) 1.36 NG/dL 0.82-1 .77 Not Available [facility] ([facility]) [address] [place], [address], 07/31/2022 16:12:11 07/29/19 23 07/29/2022 CBC WITH DIFFE RENTI AL/PL ATELE T WBC 5.3 x10e3 /uL 3.4-10 .8 Not Available [facility] ([facility]) [address] [place], [address], 07/31/2022 16:12:12 07/29/19 23 07/29/2022 CBC WITH DIFFE RENTI AL/PL ATELE T RBC 5.04 x10e6 /uL 3.77-5 .28 Not Available [facility] ([facility]) [address] [place], [address], 07/31/2022 16:12:12 07/29/19 23 07/29/2022 CBC WITH DIFFE RENTI AL/PL ATELE T hemoglobin 12.2 g/dL 11.1-1 5.9 Not Available [facility] ([facility]) [address] [place], [address], 07/31/2022 16:12:12 07/29/19 23 07/29/2022 CBC WITH DIFFE RENTI AL/PL ATELE T hematocrit 37.9 % 34.0-4 6.6 Not Available [facility] ([facility]) [address] [facility], [place], [address], 07/31/2022 16:12:12 07/29/19 23 07/29/2022 CBC WITH DIFFE RENTI AL/PL ATELE T MCV 75 fL 79-97 below low normal Not Available [facility] ([facility]) [address] [place], [address], 07/31/2022 16:12:12 07/29/19 23 07/29/2022 CBC WITH DIFFE RENTI AL/PL ATELE T MCH 24.2 pg 26.6-3 3.0 below low normal Not Available [facility] ([facility]) [address] [facility], [place], [address], 07/31/2022 16:12:12 07/29/19 23 07/29/2022 CBC WITH DIFFE RENTI AL/PL ATELE T MCHC 32.2 g/dL 31.5-3 5.7 Not Available [facility] ([facility]) [address] [place], [address], 07/31/2022 16:12:12 07/29/19 23 07/29/2022 CBC WITH DIFFE RENTI AL/PL ATELE T RDW 14.1 % 11.7-1 5.4 Not Available [facility] ([facility]) [address] [place], [address], 07/31/2022 16:12:12 07/29/19 23 07/29/2022 CBC WITH DIFFE RENTI AL/PL ATELE T platelets 286 x10e3 /uL 150-45 0 Not Available [facility] ([facility]) [address] [place], [address], 07/31/2022 16:12:12 07/29/19 23 07/29/2022 CBC WITH DIFFE RENTI AL/PL ATELE T neutrophils 61 % not estab. Not Available [facility] ([facility]) [address] [facility], [place], [address], 07/31/2022 16:12:12 07/29/19 23 07/29/2022 CBC WITH DIFFE RENTI AL/PL ATELE T lymphs 28 % not estab. Not Available [facility] ([facility]) [address] [facility], [place], [address], 07/31/2022 16:12:12 07/29/19 23 07/29/2022 CBC WITH DIFFE RENTI AL/PL ATELE T monocytes 8 % not estab. Not Available [facility] ([facility]) [address] [facility], [place], [address], 07/31/2022 16:12:12 07/29/19 23 07/29/2022 CBC WITH DIFFE RENTI AL/PL ATELE T eos 2 % not estab. Not Available [facility] ([facility]) [address] [facility], [place], [address], 07/31/2022 16:12:12 07/29/19 23 07/29/2022 CBC WITH DIFFE RENTI AL/PL ATELE T basos 1 % not estab. Not Available [facility] ([facility]) [address] [facility], [place], [address], 07/31/2022 16:12:12 07/29/19 23 07/29/2022 CBC WITH DIFFE RENTI AL/PL ATELE T immature cells SEATING AND MOBILITY TECHNOLOGIST Not Available [facility] ([facility]) [address] [facility], [place], [address], 07/31/2022 16:12:12 07/29/19 23 07/29/2022 CBC WITH DIFFE RENTI AL/PL ATELE T neutrophils (absolute) 3.2 x10e3 /uL 1.4-7. 0 Not Available [facility] ([facility]) [address] [facility], [place], [address], 07/31/2022 16:12:12 07/29/19 23 07/29/2022 CBC WITH DIFFE RENTI AL/PL ATELE T lymphs (absolute) 1.5 x10e3 /uL 0.7-3. 1 Not Available [facility] ([facility]) [address] [facility], [place], [address], 07/31/2022 16:12:12 07/29/19 23 07/29/2022 CBC WITH DIFFE RENTI AL/PL ATELE T monocytes(ab solute) 0.4 x10e3 /uL 0.1-0. 9 Not Available [facility] ([facility]) [address] [facility], [place], [address], 07/31/2022 16:12:12 07/29/19 23 07/29/2022 CBC WITH DIFFE RENTI AL/PL ATELE T eos (absolute) 0.1 x10e3 /uL 0.0-0. 4 Not Available [facility] ([facility]) [address] [facility], [place], [address], 07/31/2022 16:12:12 07/29/19 23 07/29/2022 CBC WITH DIFFE RENTI AL/PL ATELE T baso (absolute) 0.0 x10e3 /uL 0.0-0. 2 Not Available [facility] ([facility]) [address] [facility], [place], [address], 07/31/2022 16:12:12 07/29/19 23 07/29/2022 CBC WITH DIFFE RENTI AL/PL ATELE T immature granulocytes 0 % not estab. Not Available [facility] ([facility]) [address] [place], [address], 07/31/2022 16:12:12 07/29/19 23 07/29/2022 CBC WITH DIFFE RENTI AL/PL ATELE T immature grans (abs) 0.0 x10e3 /uL 0.0-0. 1 Not Available [facility] ([facility]) [address] [facility], [place], [address], 07/31/2022 16:12:12 07/29/19 23 07/29/2022 CBC WITH DIFFE RENTI AL/PL ATELE T NRBC SEATING AND MOBILITY TECHNOLOGIST Not Available [facility] ([facility]) [address] [facility], [place], [address], 07/31/2022 16:12:12 07/29/19 23 07/29/2022 CBC WITH DIFFE RENTI AL/PL ATELE T hematology comments: SEATING AND MOBILITY TECHNOLOGIST Not Available [facility] ([facility]) [address] [facility], [place], [address], 07/31/2022 16:12:12 07/29/19 23 07/29/2022 COMP. METAB OLIC PANEL (14) glucose 78 mg/dL 70-99 Not Available [facility] ([facility]) [address] [facility], [place], [address], 07/31/2022 16:12:13 07/29/19 23 07/29/2022 COMP. METAB OLIC PANEL (14) BUN 13 mg/dL 6-20 Not Available [facility] ([facility]) [address] [facility], [place], [address], 07/31/2022 16:12:13 07/29/19 23 07/29/2022 COMP. METAB OLIC PANEL (14) creatinine 0.87 mg/dL 0.57-1 .00 Not Available [facility] ([facility]) [address] [facility], [place], [address], 07/31/2022 16:12:13 07/29/19 23 07/29/2022 COMP. METAB OLIC PANEL (14) eGFR 91 mL/mi n/1.7 3 >59 Not Available [facility] ([facility]) [address] [facility], [place], [address], 07/31/2022 16:12:13 07/29/19 23 07/29/2022 COMP. METAB OLIC PANEL (14) BUN/creatini ne ratio 15 9-23 Not Available [facility] ([facility]) [address] [facility], [place], [address], 07/31/2022 16:12:13 07/29/19 23 07/29/2022 COMP. METAB OLIC PANEL (14) sodium 138 mmol/ L 134-14 4 Not Available [facility] ([facility]) [address] [facility], [place], [address], 07/31/2022 16:12:13 07/29/19 23 07/29/2022 COMP. METAB OLIC PANEL (14) potassium 4.3 mmol/ L 3.5-5. 2 Not Available [facility] ([facility]) [address] [facility], [place], [address], 07/31/2022 16:12:13 07/29/19 23 07/29/2022 COMP. METAB OLIC PANEL (14) chloride 99 mmol/ L 96-106 Not Available [facility] ([facility]) [address] [facility] [place], [address], 07/31/2022 16:12:13 07/29/19 23 07/29/2022 COMP. METAB OLIC PANEL (14) carbon dioxide, total 25 mmol/ L 20-29 Not Available [facility] ([facility]) [address] [facility] [place], [address], 07/31/2022 16:12:13 07/29/19 23 07/29/2022 COMP. METAB OLIC PANEL (14) calcium 9.1 mg/dL 8.7-10 .2 Not Available [facility] ([facility]) [address] [place], [address], 07/31/2022 16:12:13 07/29/19 23 07/29/2022 COMP. METAB OLIC PANEL (14) protein, total 7.2 g/dL 6.0-8. 5 Not Available [facility] ([facility]) [address] [facility], [place], [address], 07/31/2022 16:12:13 07/29/19 23 07/29/2022 COMP. METAB OLIC PANEL (14) albumin 4.1 g/dL 3.8-4. 8 Not Available [facility] ([facility]) [address] [facility], [place], [address], 07/31/2022 16:12:13 07/29/19 23 07/29/2022 COMP. METAB OLIC PANEL (14) globulin, total 3.1 g/dL 1.5-4. 5 Not Available [facility] ([facility]) [address] [facility], [place], [address], 07/31/2022 16:12:13 07/29/19 23 07/29/2022 COMP. METAB OLIC PANEL (14) A/G ratio 1.3 1.2-2. 2 Not Available [facility] ([facility]) [address] [facility], [place], [address], 07/31/2022 16:12:13 07/29/19 23 07/29/2022 COMP. METAB OLIC PANEL (14) bilirubin, total 0.3 mg/dL 0.0-1. 2 Not Available [facility] ([facility]) [address] [facility] [place], [address], 07/31/2022 16:12:13 07/29/19 23 07/29/2022 COMP. METAB OLIC PANEL (14) alkaline phosphatase 65 IU/L 44-121 Not Available [facility] ([facility]) [address] [facility], [place], [address], 07/31/2022 16:12:13 07/29/19 23 07/29/2022 COMP. METAB OLIC PANEL (14) AST (SGOT) 28 IU/L 0-40 Not Available [facility] ([facility]) [address] [place], [address], 07/31/2022 16:12:13 07/29/19 23 07/29/2022 COMP. METAB OLIC PANEL (14) ALT (SGPT) 38 IU/L 0-32 above high normal Not Available [facility] ([facility]) [address] [place], [address], 07/31/2022 16:12:13 07/29/19 23 07/29/2022 LIPID PANEL cholesterol, total 178 mg/dL 100-19 9 Not Available [facility] ([facility]) [address] [place], [address], 07/31/2022 16:12:13 07/29/19 23 07/29/2022 LIPID PANEL triglyceride s 127 mg/dL 0-149 Not Available [facility] ([facility]) [address] [place], [address], 07/31/2022 16:12:13 07/29/19 23 07/29/2022 LIPID PANEL HDL cholesterol 38 mg/dL >39 below low normal Not Available [facility] ([facility]) [address] [place], [address], 07/31/2022 16:12:13 07/29/19 23 07/29/2022 LIPID PANEL VLDL cholesterol darien 23 mg/dL 5-40 Not Available [facility] ([facility]) [address] [place], [address], 07/31/2022 16:12:13 07/29/19 23 07/29/2022 LIPID PANEL LDL chol calc (nih) 117 mg/dL 0-99 above high normal Not Available [facility] ([facility]) [address] [facility] [place], [address], 07/31/2022 16:12:13 07/29/19 23 07/29/2022 LIPID PANEL comment: SEATING AND MOBILITY TECHNOLOGIST Not Available [facility] ([facility]) [address] [facility], [place], [address], 07/31/2022 16:12:13 07/29/19 23 07/29/2022 IRON AND TIBC iron bind.cap.(TI BC) 337 ug/dL 250-45 0 Not Available [facility] ([facility]) [address] [facility], [place], [address], 07/31/2022 16:12:14 07/29/19 23 07/29/2022 IRON AND TIBC UIBC 264 ug/dL 131-42 5 Not Available [facility] ([facility]) [address] [facility], [place], [address], 07/31/2022 16:12:14 07/29/19 23 07/29/2022 IRON AND TIBC iron 73 ug/dL 27-159 Not Available [facility] ([facility]) [address] [facility], [place], [address], 07/31/2022 16:12:14 07/29/19 23 07/29/2022 IRON AND TIBC iron saturation 22 % 15-55 Not Available [facility] ([facility]) [address] [facility], [place], [address], 07/31/2022 16:12:14 07/29/19 23 07/28/2022 EBV ANTIB [...] antib odies to EBNA. Not Available [facility] ([facility]) [address] [place], [address], 07/31/2022 16:12:15 07/29/19 23 07/31/2022 EBV ANTIB WENDY PROFI LE ebv Ab vca, IgM <36.0 U/mL 0.0-35 .9 Negat geremias <36.0 Equiv ocal 36.0 - 43.9 Posit geremias >43.9 Not Available [facility] ([facility]) [address] [place], [address], 07/31/2022 16:12:15 07/29/19 23 07/31/2022 EBV ANTIB WENDY PROFI LE ebv Ab vca, IgG >600.0 U/mL 0.0-17 .9 above high normal Negat geremias <18.0 Equiv ocal 18.0 - 21.9 Posit geremias >21.9 Not Available [facility] ([facility]) [address] [place], [address], 07/31/2022 16:12:15 07/29/1907/31/2022 EBV ANTIB WENDY PROFI LE ebv nuclear antigen Ab, IgG 412.0 U/mL 0.0-17 .9 above high normal Negat geremias <18.0 Equiv ocal 18.0 - 21.9 Posit geremias >21.9 Not Available [facility] ([facility]) [address] [place], [address], 07/31/2022 16:12:15 07/29/19 23 07/29/2022 VITAM IN B12 AND FOLAT E vitamin B12 434 pg/mL 232-12 45 Not Available [facility] ([facility]) [address] [facility], [place], [address], 07/31/2022 16:12:15 07/29/19 23 07/29/2022 VITAM IN B12 AND FOLAT E folate (folic acid), serum 5.7 NG/mL >3.0 A serum folat e vince ntrat ion of less than 3.1 ng/mL is consi dered to repre sent clini darien defic iency . Not Available [facility] ([facility]) [address] [facility], [place], [address], 07/31/2022 16:12:15 07/29/19 23 07/29/2022 HEMOG LOBIN A1C hemoglobin A1C 5.6 % 4.8-5. 6 Predi abete s: 5.7 - 6.4 Diabe neri: >6.4 Glyce dayanara contr ol for adult s with diabe neri: <7.0 Not Available [facility] ([facility]) [address] [facility], [place], [address], 07/31/2022 16:12:16 07/29/1907/29/2022 VITAM IN D, 25-HY DROXY vitamin D, [...] um and D. Miladis rob DC: [facility] Press . 2. Shelly aaron MF, Janice gonzales [place], Karoline off-F errar i LAYTON, et al. Evalu ation , treat ment, and preve ntion of vitam in D defic iency : an Endoc rine Socie ty clini darien pract ice guide line. JCEM. 2010; 96(7) :1911 -30. Not Available [facility] ([facility]) [address] [facility], [place], [address], 07/31/2022 16:12:16 07/29/19 23 07/29/2022 ANTI- CCP AB, IGG/I GA anti-ccp Ab, IgG/IgA 4 units 0-19 Negat geremias <20 Weak posit geremias 20 - 39 Moder ate posit geremias 40 - 59 Stron g posit geremias >59 Not Available [facility] ([facility]) [address] [place], [address], 07/31/2022 16:12:17 07/29/19 23 07/31/2022 ANTIN UCLEA R AB MULTI PLEX RFX 9 ALEXUS direct Negati ve negati ve Not Available [facility] ([facility]) [address] [place], [address], 07/31/2022 16:12:18 07/29/19 23 07/29/2022 SEDIM ENTAT ION RATE- WESTE RGREN sedimentatio n rate-westerg marlen 61 mm/HR 0-32 above high normal Not Available [facility] ([facility]) [address] [place], [address], 07/31/2022 16:12:18 07/29/19 23 07/29/2022 THYRO ID ANTIB ODIES thyroid peroxidase (tpo) Ab 20 IU/mL 0-34 Not Available [facility] ([facility]) [address] [place], [address], 07/31/2022 16:12:19 07/29/19 23 07/31/2022 THYRO ID ANTIB ODIES thyroglobuli n antibody <1.0 IU/mL 0.0-0. 9 Thyro globu cameron Antib wendy measu red by Beckm an Coult er Metho dolog y Not Available [facility] ([facility]) [address] [facility], [place], [address], 07/31/2022 16:12:19 07/29/19 23 07/29/2022 INSUL IN insulin 17.2 uIU/m L 2.6-24 .9 Not Available [facility] ([facility]) [address] [facility], [place], [address], 07/31/2022 16:12:20 07/29/19 23 07/29/2022 C-GERARD CTIVE PROTE IN, QUANT C-reactive protein, quant 16 mg/L 0-10 above high normal Not Available [facility] ([facility]) [address] [facility], [place], [address], 07/31/2022 16:12:20 07/29/19 23 07/28/2022 urina lysis , dipst ick Leukocytes Small Not Available [facility] [address] [place], [address], 07/24/2022 14:24:03 07/29/19 23 07/28/2022 urina lysis , dipst ick Nitrite negati ve Not Available [facility] [address] [place], [address], 07/24/2022 14:24:03 07/29/19 23 07/28/2022 urina lysis , dipst ick Urobilinogen .2 Not Available [facility] [address] [place], [address], 07/24/2022 14:24:03 07/29/19 23 07/28/2022 urina lysis , dipst ick Protein Negati ve Not Available [facility] [address] [place], [address], 07/24/2022 14:24:03 07/29/19 23 07/28/2022 urina lysis , dipst ick pH 6.0 Not Available [facility] [address] [place], [address], 07/24/2022 14:24:03 07/29/19 23 07/28/2022 urina lysis , dipst ick Blood Negati ve Not Available [facility] [address] [place], [address], 07/24/2022 14:24:03 07/29/19 23 07/28/2022 urina lysis , dipst ick Specific [place] 1.030 Not Available [facility] [address] [place], [address], 07/24/2022 14:24:03 07/29/19 23 07/28/2022 urina lysis , dipst ick Ketone Negati ve Not Available [facility] [address] [place], [address], 07/24/2022 14:24:03 07/29/19 23 07/28/2022 urina lysis , dipst ick Bilirubin Negati ve Not Available [facility] [address] [place], [address], 07/24/2022 14:24:03 07/29/19 23 07/28/2022 urina lysis , dipst ick Glucose Negati ve Not Available [facility] [address] [place], [address], 07/24/2022 14:24:03 07/29/19 23 07/28/2022 urina lysis , dipst ick Appearance Clear Not Available [facility] [address] [place], [address], 07/24/2022 14:24:03 07/29/19 23 07/28/2022 urina lysis , dipst ick Color Yellow Not Available [facility] [address] [place], [place], [address], 07/24/2022 14:24:03 01/11/20 23 01/11/2023 CBC WITH DIFFE RENTI AL/PL ATELE T WBC 8.5 x10e3 /uL 3.4-10 .8 Not Available [facility] ([facility]) [address] [facility], [place], [address], 01/16/2023 10:12:06 01/11/20 23 01/11/2023 CBC WITH DIFFE RENTI AL/PL ATELE T RBC 4.82 x10e6 /uL 3.77-5 .28 Not Available [facility] ([facility]) [address] [facility], [place], [address], 01/16/2023 10:12:06 01/11/20 23 01/11/2023 CBC WITH DIFFE RENTI AL/PL ATELE T hemoglobin 12.1 g/dL 11.1-1 5.9 Not Available [facility] ([facility]) [address] [facility], [place], [address], 01/16/2023 10:12:06 01/11/20 23 01/11/2023 CBC WITH DIFFE RENTI AL/PL ATELE T hematocrit 37.9 % 34.0-4 6.6 Not Available [facility] ([facility]) [address] [facility], [place], [address], 01/16/2023 10:12:06 01/11/20 23 01/11/2023 CBC WITH DIFFE RENTI AL/PL ATELE T MCV 79 fL 79-97 Not Available [facility] ([facility]) [address] [place], [address], 01/16/2023 10:12:06 01/11/20 23 01/11/2023 CBC WITH DIFFE RENTI AL/PL ATELE T MCH 25.1 pg 26.6-3 3.0 below low normal Not Available [facility] ([facility]) [address] [place], [address], 01/16/2023 10:12:06 01/11/20 23 01/11/2023 CBC WITH DIFFE RENTI AL/PL ATELE T MCHC 31.9 g/dL 31.5-3 5.7 Not Available [facility] ([facility]) [address] [place], [address], 01/16/2023 10:12:06 01/11/20 23 01/11/2023 CBC WITH DIFFE RENTI AL/PL ATELE T RDW 14.1 % 11.7-1 5.4 Not Available [facility] ([facility]) [address] [place], [address], 01/16/2023 10:12:06 01/11/20 23 01/11/2023 CBC WITH DIFFE RENTI AL/PL ATELE T platelets 310 x10e3 /uL 150-45 0 Not Available [facility] ([facility]) [address] [place], [address], 01/16/2023 10:12:06 01/11/20 23 01/11/2023 CBC WITH DIFFE RENTI AL/PL ATELE T neutrophils 64 % not estab. Not Available [facility] ([facility]) [address] [place], [address], 01/16/2023 10:12:06 01/11/20 23 01/11/2023 CBC WITH DIFFE RENTI AL/PL ATELE T lymphs 26 % not estab. Not Available [facility] ([facility]) [address] [place], [address], 01/16/2023 10:12:06 09/20/01/11/2023 CBC WITH DIFFE RENTI AL/PL ATELE T monocytes 8 % not estab. Not Available [facility] ([facility]) [address] [place], [address], 01/16/2023 10:12:06 01/11/20 23 01/11/2023 CBC WITH DIFFE RENTI AL/PL ATELE T eos 1 % not estab. Not Available [facility] ([facility]) [address] [place], [address], 01/16/2023 10:12:06 01/11/20 23 01/11/2023 CBC WITH DIFFE RENTI AL/PL ATELE T basos 1 % not estab. Not Available [facility] ([facility]) [address] [facility], [place], [address], 01/16/2023 10:12:06 01/11/20 23 01/11/2023 CBC WITH DIFFE RENTI AL/PL ATELE T immature cells SEATING AND MOBILITY TECHNOLOGIST Not Available [facility] ([facility]) [address] [place], [address], 01/16/2023 10:12:06 01/11/20 23 01/11/2023 CBC WITH DIFFE RENTI AL/PL ATELE T neutrophils (absolute) 5.5 x10e3 /uL 1.4-7. 0 Not Available [facility] ([facility]) [address] [facility], [place], [address], 01/16/2023 10:12:06 01/11/20 23 01/11/2023 CBC WITH DIFFE RENTI AL/PL ATELE T lymphs (absolute) 2.2 x10e3 /uL 0.7-3. 1 Not Available [facility] ([facility]) [address] [place], [address], 01/16/2023 10:12:06 01/11/20 23 01/11/2023 CBC WITH DIFFE RENTI AL/PL ATELE T monocytes(ab solute) 0.7 x10e3 /uL 0.1-0. 9 Not Available [facility] ([facility]) [address] [facility], [place], [address], 01/16/2023 10:12:06 01/11/20 23 01/11/2023 CBC WITH DIFFE RENTI AL/PL ATELE T eos (absolute) 0.1 x10e3 /uL 0.0-0. 4 Not Available [facility] ([facility]) [address] [facility], [place], [address], 01/16/2023 10:12:06 01/11/20 23 01/11/2023 CBC WITH DIFFE RENTI AL/PL ATELE T baso (absolute) 0.0 x10e3 /uL 0.0-0. 2 Not Available [facility] ([facility]) [address] [facility], [place], [address], 01/16/2023 10:12:06 01/11/20 23 01/11/2023 CBC WITH DIFFE RENTI AL/PL ATELE T immature granulocytes 0 % not estab. Not Available [facility] ([facility]) [address] [facility], [place], [address], 01/16/2023 10:12:06 01/11/20 23 01/11/2023 CBC WITH DIFFE RENTI AL/PL ATELE T immature grans (abs) 0.0 x10e3 /uL 0.0-0. 1 Not Available [facility] ([facility]) [address] [facility], [place], [address], 01/16/2023 10:12:06 01/11/20 23 01/11/2023 CBC WITH DIFFE RENTI AL/PL ATELE T NRBC SEATING AND MOBILITY TECHNOLOGIST Not Available [facility] ([facility]) [address] [facility], [place], [address], 01/16/2023 10:12:06 01/11/20 23 01/11/2023 CBC WITH DIFFE RENTI AL/PL ATELE T hematology comments: SEATING AND MOBILITY TECHNOLOGIST Not Available [facility] ([facility]) [address] [facility], [place], [address], 01/16/2023 10:12:06 01/11/20 23 01/11/2023 COMP. METAB OLIC PANEL (14) glucose 95 mg/dL 70-99 Not Available [facility] ([facility]) [address] [facility], [place], [address], 01/16/2023 10:12:07 01/11/20 23 01/11/2023 COMP. METAB OLIC PANEL (14) BUN 15 mg/dL 6-20 Not Available [facility] ([facility]) [address] [place], [address], 01/16/2023 10:12:07 01/11/20 23 01/11/2023 COMP. METAB OLIC PANEL (14) creatinine 0.72 mg/dL 0.57-1 .00 Not Available [facility] ([facility]) [address] [facility], [place], [address], 01/16/2023 10:12:07 01/11/20 23 01/11/2023 COMP. METAB OLIC PANEL (14) eGFR 114 mL/mi n/1.7 3 >59 Not Available [facility] ([facility]) [address] [place], [address], 01/16/2023 10:12:07 01/11/20 23 01/11/2023 COMP. METAB OLIC PANEL (14) BUN/creatini ne ratio 21 9-23 Not Available [facility] ([facility]) [address] [place], [address], 01/16/2023 10:12:07 01/11/20 23 01/11/2023 COMP. METAB OLIC PANEL (14) sodium 139 mmol/ L 134-14 4 Not Available [facility] ([facility]) [address] [place], [address], 01/16/2023 10:12:07 01/11/20 23 01/11/2023 COMP. METAB OLIC PANEL (14) potassium 4.1 mmol/ L 3.5-5. 2 Not Available [facility] ([facility]) [address] [facility], [place], [address], 01/16/2023 10:12:07 01/11/20 23 01/11/2023 COMP. METAB OLIC PANEL (14) chloride 99 mmol/ L 96-106 Not Available [facility] ([facility]) [address] [facility], [place], [address], 01/16/2023 10:12:07 01/11/20 23 01/11/2023 COMP. METAB OLIC PANEL (14) carbon dioxide, total 27 mmol/ L 20-29 Not Available [facility] ([facility]) [address] [facility], [place], [address], 01/16/2023 10:12:07 01/11/20 23 01/11/2023 COMP. METAB OLIC PANEL (14) calcium 9.3 mg/dL 8.7-10 .2 Not Available [facility] ([facility]) [address] [facility], [place], [address], 01/16/2023 10:12:07 01/11/20 23 01/11/2023 COMP. METAB OLIC PANEL (14) protein, total 7.3 g/dL 6.0-8. 5 Not Available [facility] ([facility]) [address] [facility] [place], [address], 01/16/2023 10:12:07 01/11/20 23 01/11/2023 COMP. METAB OLIC PANEL (14) albumin 4.2 g/dL 3.9-4. 9 Not Available [facility] ([facility]) [address] [facility], [place], [address], 01/16/2023 10:12:07 01/11/20 23 01/11/2023 COMP. METAB OLIC PANEL (14) globulin, total 3.1 g/dL 1.5-4. 5 Not Available [facility] ([facility]) [address] [place], [address], 01/16/2023 10:12:07 01/11/20 23 01/11/2023 COMP. METAB OLIC PANEL (14) A/G ratio 1.4 1.2-2. 2 Not Available [facility] ([facility]) [address] [facility] [place], [address], 01/16/2023 10:12:07 01/11/20 23 01/11/2023 COMP. METAB OLIC PANEL (14) bilirubin, total 0.2 mg/dL 0.0-1. 2 Not Available [facility] ([facility]) [address] [place], [address], 01/16/2023 10:12:07 01/11/20 23 01/11/2023 COMP. METAB OLIC PANEL (14) alkaline phosphatase 72 IU/L 44-121 Not Available [facility] ([facility]) [address] [place], [address], 01/16/2023 10:12:07 01/11/20 23 01/11/2023 COMP. METAB OLIC PANEL (14) AST (SGOT) 17 IU/L 0-40 Not Available [facility] ([facility]) [address] [place], [address], 01/16/2023 10:12:07 01/11/20 23 01/11/2023 COMP. METAB OLIC PANEL (14) ALT (SGPT) 24 IU/L 0-32 Not Available [facility] ([facility]) [address] [place], [address], 01/16/2023 10:12:07 01/11/20 23 01/14/2023 CT/GC /TV DEIDRE+M GENIT ALIUM UR. mycoplasma genitalium DEIDRE Negati ve negati ve Not Available [facility] ([facility]) [address] [place], [address], 01/16/2023 10:12:08 01/11/20 23 01/15/2023 CT/GC /TV DEIDRE+M GENIT ALIUM UR. trich vag by DEIDRE Negati ve negati ve Not Available [facility] ([facility]) [address] [facility], [place], [address], 01/16/2023 10:12:08 01/11/20 23 01/15/2023 CT/GC /TV DEIDRE+M GENIT ALIUM UR. neisseria gonorrhoeae, DEIDRE Negati ve negati ve Not Available [facility] ([facility]) [address] [place], [address], 01/16/2023 10:12:08 01/11/20 23 01/16/2023 CT/GC /TV DEIDRE+M GENIT ALIUM UR. chlamydia trachomatis, DEIDRE Positi ve negati ve abnormal Not Available [facility] ([facility]) [address] [place], [address], 01/16/2023 10:12:08 01/11/20 23 01/11/2023 VITAM IN [...] Medic ine). 2010. Dieta ry refer ence tesha es for calci um and D. Miladis rob DC: The [facility] Press . 2. Shelly aaron MF, Janice ey [place], Bisch off-F errar i LAYTON, et al. Evalu ation , treat ment, and preve ntion of vitam in D defic iency : an Endoc rine Socie ty clini darien pract ice guide line. JCEM. 2010; 96(7) :1911 -30. Not Available [facility] ([facility]) [address] [facility], [place], [address], 01/16/2023 10:12:09 01/11/20 23 01/11/2023 SEDIM ENTAT ION RATE- WESTE RGREN sedimentatio n rate-westerg marlen 57 mm/HR 0-32 above high normal Not Available [facility] ([facility]) [address] [facility], [place], [address], 01/16/2023 10:12:09 01/11/20 23 01/11/2023 C-GERARD CTIVE PROTE IN, QUANT C-reactive protein, quant 8 mg/L 0-10 Not Available [facility] ([facility]) [address] [facility], [place], [address], 01/16/2023 10:12:10 01/11/20 23 01/15/2023 URINE CULTU RE,CO MPREH ENSIV E urine culture,comp rehensive Final report Not Available [facility] ([facility]) [address] [place], [address], 01/16/2023 10:12:11 01/11/20 23 01/15/2023 URINE CULTU RE,CO MPREH ENSIV E result 1 COMMEN T Mixed uroge nital jesus 1,000 Colon ies/m L Not Available [facility] ([facility]) [address] [place], [address], 01/16/2023 10:12:11 01/11/20 23 01/10/2023 urina lysis , dipst ick Leukocytes Small Not Available [facility] [address] [place], [address], 01/08/2023 08:51:46 01/11/20 23 01/10/2023 urina lysis , dipst ick Nitrite negati ve Not Available [facility] [address] [place], [address], 01/08/2023 08:51:46 01/11/20 23 01/10/2023 urina lysis , dipst ick Urobilinogen .2 Not Available [facility] [address] [place], [address], 01/08/2023 08:51:46 01/11/20 23 01/10/2023 urina lysis , dipst ick Protein Negati ve Not Available [facility] [address] [place], [address], 01/08/2023 08:51:46 01/11/20 23 01/10/2023 urina lysis , dipst ick pH 5.5 Not Available [facility] [address] [place], [address], 01/08/2023 08:51:46 01/11/20 23 01/10/2023 urina lysis , dipst ick Blood Negati ve Not Available [facility] [address] [place], [address], 01/08/2023 08:51:46 01/11/20 23 01/10/2023 urina lysis , dipst ick Specific [place] 1.030 Not Available [facility] [address] [place], [address], 01/08/2023 08:51:46 01/11/20 23 01/10/2023 urina lysis , dipst ick Ketone Negati ve Not Available [facility] [address] [place], [address], 01/08/2023 08:51:46 01/11/20 23 01/10/2023 urina lysis , dipst ick Bilirubin Negati ve Not Available [facility] [address] [place], [address], 01/08/2023 08:51:46 01/11/20 23 01/10/2023 urina lysis , dipst ick Glucose Negati ve Not Available [facility] [address] [place], [address], 01/08/2023 08:51:46 01/11/20 23 01/10/2023 urina lysis , dipst ick Appearance Slight ly Cloudy Not Available [facility] [address] [place], [address], 01/08/2023 08:51:46 01/11/20 23 01/10/2023 urina lysis , dipst ick Color Dark Yellow Not Available [facility] [address] [place], [address], 01/08/2023 08:51:46 07/25/19 24 07/28/2023 CT/GC /TV DEIDRE+M YCOPL ASMAS URINE mycoplasma genitalium DEIDRE Negati ve negati ve Not Available [facility] ([facility]) [address] [place], [address], 07/28/2023 14:11:12 07/25/19 24 07/28/2023 CT/GC /TV DEIDRE+M YCOPL ASMAS URINE mycoplasma hominis DEIDRE Positi ve negati ve abnormal Not Available [facility] ([facility]) [address] [place], [address], 07/28/2023 14:11:12 07/25/19 24 07/28/2023 CT/GC /TV DEIDRE+M YCOPL ASMAS URINE ureaplasma spp DEIDRE Positi ve negati ve abnormal Not Available [facility] ([facility]) [address] [facility], [place], [address], 07/28/2023 14:11:12 07/25/19 24 07/28/2023 CT/GC /TV DEIDRE+M YCOPL ASMAS URINE trich vag by DEIDRE Negati ve negati ve Not Available [facility] ([facility]) [address] [facility], [place], [address], 07/28/2023 14:11:12 07/25/19 24 07/28/2023 CT/GC /TV DEIDRE+M YCOPL ASMAS URINE chlamydia trachomatis, DEIDRE Negati ve negati ve Not Available [facility] ([facility]) [address] [facility], [place], [address], 07/28/2023 14:11:12 07/25/19 24 07/28/2023 CT/GC /TV DEIDRE+M YCOPL ASMAS URINE neisseria gonorrhoeae, DEIDRE Negati ve negati ve Not Available [facility] ([facility]) [address] [facility], [place], [address], 07/28/2023 14:11:12 07/25/19 24 07/27/2023 URINE CULTU RE,CO MPREH ENSIV E urine culture,comp rehensive Final report Not Available [facility] ([facility]) [address] [facility], [place], [address], 07/28/2023 14:11:12 07/25/19 24 07/27/2023 URINE CULTU RE,CO MPREH ENSIV E result 1 COMMEN T Mixed uroge nital jesus 7,000 Colon ies/m L Not Available [facility] ([facility]) [address] [facility], [place], [address], 07/28/2023 14:11:12 07/25/19 24 07/25/2023 urina lysis , dipst ick Leukocytes Large Not Available [facility] [address] [place], [address], 07/23/2023 08:46:54 07/25/19 24 07/25/2023 urina lysis , dipst ick Nitrite negati ve Not Available [facility] [address], [place], [address], 07/23/2023 08:46:54 07/25/19 24 07/25/2023 urina lysis , dipst ick Urobilinogen .2 Not Available [facility] [address] [place], [address], 07/23/2023 08:46:54 07/25/19 24 07/25/2023 urina lysis , dipst ick Protein Negati ve Not Available [facility] [address] [place], [address], 07/23/2023 08:46:54 07/25/19 24 07/25/2023 urina lysis , dipst ick pH 6.0 Not Available [facility] [address] [place], [address], 07/23/2023 08:46:54 07/25/19 24 07/25/2023 urina lysis , dipst ick Blood Negati ve Not Available [facility] [address] [place], [address], 07/23/2023 08:46:54 07/25/19 24 07/25/2023 urina lysis , dipst ick Specific [place] 1.025 Not Available [facility] [address] [place], [address], 07/23/2023 08:46:54 07/25/19 24 07/25/2023 urina lysis , dipst ick Ketone Negati ve Not Available [facility] [address] [place], [address], 07/23/2023 08:46:54 07/25/19 24 07/25/2023 urina lysis , dipst ick Bilirubin Negati ve Not Available [facility] [address] [place], [address], 07/23/2023 08:46:54 07/25/19 24 07/25/2023 urina lysis , dipst ick Glucose Negati ve Not Available [facility] [address] [place], [address], 07/23/2023 08:46:54 07/25/19 24 07/25/2023 urina lysis , dipst ick Appearance Slight ly Cloudy Not Available [facility] [address] [place], [address], 07/23/2023 08:46:54 07/25/19 24 07/25/2023 urina lysis , dipst ick Color Yellow Not Available [facility] [address] [place], [address], 07/23/2023 08:46:54 07/22/19 23 US, retro perit oneum , compl ete No observ ation record ed. Not Available 07/28 08:35:36 Result Notes None recorded. Problems Name Problem SNOMED Code Status Onset Date Resolution Date Notes Provider Name and Address Organization Details Recorded Time Abdominal pain 88695153 Active 2021 Ali Nabil null, [place] - [facility] 2 17:32:32 Pilar cyst of scalp 911601390 Active 2024 Lizzette Pascual, DO [address], [place], [address], [place] - [facility] 5 08:47:37 Morbid obesity 598536686 Active 2024 Lizzette Pascual, DO [address], [place], [address], [facility] - [facility] 5 08:48:02 Genuine stress incontinence 20687864 Active 2024 Reid Adam, CATALOG LIBRARY ASSISTANT [address], [place], [address], [facility] - [facility] 5 11:04:23 Problem Notes None recorded. Procedures Surgical History Date Name Laterality Status Provider Name and Address Organization Details Recorded Time 07/29/19 23 In and Out Catheterization completed Anita Rangel, CATALOG LIBRARY ASSISTANT [address], [place], [address], [facility] 07/28/2022 09:25:42 11/22/19 04 Endometrial Biopsy completed Mariella Miles [facility] 02/23/2025 09:10:25 Imaging Results None recorded. Procedure Notes None recorded. Medical Equipment None Reported. Allergies Allergen ID Allergen Name Allergen Category Reaction Reaction Severity Criticality Documentation Date Start Date Code Code System Note Provider Name and Address Organization Details Recorded Time 816440 Product containin g penicilli n (product) medicatio n rash Not available Not available 06/09/2021 22370 8001 JOSE EDUARDO Anderson Barcenas [place], [place] - [facility] 2 11:12:20 [id number] Substance with sulfonami de structure and antibacte rial mechanism of action (substanc e) medicatio n rash Not available Not available 06/09/2021 13381 8003 CHRIS Monica Barcenas [facility] 11:13:05 Medications Name Sig [...] numeric rating [Score] - Reported Oxygen saturation Systolic And Diastolic Provider Name and Address Organization Details Last Updated DateTime 5 168.91 cm 45.2 kg/m2 287220. 23 g 97.8 [degF] 85 /min 14 /min 3 97 % 120/80 mm[Hg] Josephine De La Rosa [place] - [facility] 5 08:28:42 Date Recorded Body height Body mass index (BMI) Body weight Heart rate Oxygen saturation Respiratory rate Pain severity - 0-10 verbal numeric rating [Score] - Reported Systolic And Diastolic Provider Name and Address Organization Details Last Updated DateTime 4 168.91 cm 44.5 kg/m2 443544. 86 g 85 /min 97 % 16 /min 0 118/78 mm[Hg] Patrizia Aldridge [place] - [facility] 4 08:17:26 Date Recorded Body height Body mass index (BMI) Body weight Heart rate Oxygen saturation Respiratory rate Pain severity Frausto-Bracenas FACES pain rating scale Systolic And Diastolic Provider Name and Address Organization Details Last Updated DateTime 3 168.91 cm 41.3 kg/m2 183760. 02 g 78 /min 98 % 14 /min 0 128/80 mm[Hg] Mildred Melendrez [place] - [facility] 3 08:27:56 Date Recorded Body height Body mass index (BMI) Body weight Heart rate Oxygen saturation Respiratory rate Pain severity - 0-10 verbal numeric rating [Score] - Reported Systolic And Diastolic Provider Name and Address Organization Details Last Updated DateTime 3 168.91 cm 40.3 kg/m2 975177. 67 g 95 /min 97 % 14 /min 0 120/80 mm[Hg] Patrizia Aldridge [place] - [facility] 3 09:25:56 Date Recorded Body height Body mass index (BMI) Body weight Respiratory rate Body temperature Oxygen saturation Heart rate Systolic And Diastolic Provider Name and Address Organization Details Last Updated DateTime 5 168.91 cm 41.8 kg/m2 174384. 79 g 18 /min 98 [degF] 97 % 74 /min 126/78 mm[Hg] Mariella Miles [place] - [facility] 09:10:00 Social History Question Answer Notes LastModified by Organizat ion Details LastModified Time Tobacco Smoking Status Former Smoker Mariella mcmanus, [place] [facility] 02/23/2025 09:11:39 Do You Have An Advance Directive? No [email or web address] Information not available 06/09/2021 Are You Blind Or Do You Have Difficulty Seeing? No [email or web address] Information not available 06/09/2021 Is Blood Transfusion Acceptable In An Emergency? Yes Information not available 02/23/2025 What Is Your Level Of Caffeine Consumption? Heavy Information not available 02/23/2025 How Much Tobacco Do You Chew? None Information not available 02/23/2025 In The 14 Days Before Symptom Onset, Have You Had Close Contact With A Laboratory-confir med COVID-19 While That Case Was Ill? No [email or web address] Information not available 06/03/2024 In The 14 Days Before Symptom Onset, Have You Had Close Contact With A Person Who Is Under Investigation For COVID-19 While That Person Was Ill? No [email or web address] Information not available 06/03/2024 Have You Been To An Area Known To Be High Risk For COVID-19? No [email or web address] Information not available 06/03/2024 Are You Deaf Or Do You Have Serious Difficulty Hearing? No [email or web address] Information not available 06/09/2021 What Type Of Diet Are You Following? REGULAR [email or web address] Information not available 06/09/2021 Have You Processed Blood Or Body Fluids From An Ebola Virus Disease Patient Without Appropriate PPE? No [email or web address] Information not available 06/03/2024 Do You Reside In Or Have You Traveled To An Area Where Ebola Virus Transmission Is Active? No [email or web address] Information not available 06/03/2024 What Is The Highest Grade Or Level Of School You Have Completed Or The Highest Degree You Have Received? [id number] [email or web address] Information not available 06/09/2021 Have There Been Any Changes To Your Family Or Social Situation? No [email or web address] Information no t available 06/03/2024 What Is The Fluoride Status Of Your Home? Unknown Information not available 02/23/2025 When Did You Quit Smoking? 1-5yearssin celastcigar ette Stopped In 2019 Information not available 02/23/2025 Have You Recently Or Are You Planning To Travel To An Area With Zika Virus? No [email or web address] Information not available 06/03/2024 Last Menstrual Period? 04/23/2024 [email or web address] Information not available 06/03/2024 Do You Have A Medical Power Of Glazing Superintendent? No [email or web address] Information not available 06/09/2021 What Was The Date Of Your Most Recent Tobacco Screening? 06/03/2024 [email or web address] Information not available 06/03/2024 How Many Children Do You Have? 1 Information not available 06/09/2021 What Is Your Current Pack Years? 10-19packye ars Information not available 06/09/2021 Do You Use Protection During Sex? No Information not available 02/23/2025 Do You Use Protection Against STDs? No Information not available 02/23/2025 What Is Your Relationship Status? Single Information not available 06/09/2021 Do You Use Your Seat Belt Or Car Seat Routinely? Yes Information not available 02/23/2025 Are You Sexually Active? No [email or web address] Information not available 06/09/2021 Do You Have Smoke And Carbon Monoxide Detectors In Your Home? Yes [email or web address] Information not available 06/09/2021 At What Age Did You Start Smoking Tobacco? 13 Information not available 02/23/2025 Are You Passively Exposed To Smoke? Yes Information no t available 02/23/2025 How Much Tobacco Do You Smoke? 0.25 PPD Information not available 02/23/2025 Do You Use Sunscreen Routinely? No Information not available 02/23/2025 Has Tobacco Cessation Counseling Been Provided? No [email or web address] Information not available 06/09/2021 How Many Years Have You Smoked Tobacco? 16 Information not available 02/23/2025 Do You Have Difficulty Walking Or Climbing Stairs? No Information not available 06/09/2021 How Many Years Have You Used E-cigarettes Or Vape? 3 [email or web address] Information not available 06/09/2021 Sex: Female Functional Status Question Answer Note LastModified by Organizat ion Details LastModified Time Do you use any illicit or recreational drugs? No [email or web address] Information not available 06/09/2021 Do you or have you ever used any other forms of tobacco or nicotine? Yes [email or web address] Information not available 06/09/2021 What is your level of alcohol consumption? None [email or web address] Information not available 06/09/2021 Do you or have you ever used smokeless tobacco? Never used smokeless tobacco Information not available 02/23/2025 Are you currently employed? No Information not available 06/09/2021 Do you have transportation difficulties? No [email or web address] Information not available 06/09/2021 Are you able to walk independently without assistance or assistive devices? YESASSIST [email or web address] Information not available 06/09/2021 Do you have difficulty doing errands alone? No [email or web address] Information not available 06/09/2021 Are you able to care for yourself independently? Yes [email or web address] Information not available 06/09/2021 Do you have difficulty dressing, bathing, grooming, or toileting? No [email or web address] Information not available 06/09/2021 Do you or have you ever used e-cigarettes or vape? Current user of electronic cigarettes started three years ago [email or web address] Information not available 01/10/2023 What is your exercise level? None Information not available 06/09/2021 Mental Status Question Answer Note LastModified by Organizat ion Details LastModified Time Do you feel stressed (tense, restless, nervous, or anxious, or unable to sleep at night)? [id number] Information not available 02/23/2025 Do you have [...] DTaP, unspecified formulation 6 completed Not Available [facility] 02/23/2025 08:48:20 MMR 6 completed Not Available [facility] 02/23/2025 08:48:20 OPV, trivalent 6 completed Not Available [facility] 02/23/2025 08:48:20 Hep B, adolescent or pediatric 2 completed Not Available [facility] 02/23/2025 08:48:20 Hep B, adolescent or pediatric 2 completed Not Available [facility] 02/23/2025 08:48:20 Hep B, adolescent or pediatric 3 completed Not Available [facility] 02/23/2025 08:48:20 Tdap 6 completed Not Available [facility] 02/23/2025 08:48:20 rubella 3 completed Not Available [facility] 02/23/2025 08:48:20 Tdap 4 completed Not Available [facility] 02/23/2025 08:48:20 Past Encounters Encounter ID Performer Location Encounter Start Date Encounter Closed Date Diagnosis/Indication Diagnosis SNOMED-CT Code Diagnosis ICD10 Code Diagnosis IMO Codes Diagnosis Note [id number] Voloydmyr Ferrer MD [address] [place] [address] 06/09/2021 10:52:44 06/09/2021 12:42:49 Abdominal pain 17496856 R10.9 Intermitte nt RUQ abdominal pain for [...] to discuss test results. Urinary incontinence 165 659252 R32 Get US. Establish care with Urologist Miguelito cartwright isease screening 509812455 Z11.3 Acute cystitis 32246113 N30.00 Acute cystitis. Take Macrobid as prescribed . Follow urine culture and labs. See us back or go to Er right away should she gets worse or develops any new symptoms or complaints . Follow up with us in 2 to 3 days. Urine preg agnes test positive 472824865 Z32.01 Start taking vitamins. No Hx of neural tube defects. Establish care with Gynecologi stCandelario Vomiting 065700997 R11.1 0 I asked patient to maintain an adequate hydration. Take Vitamin B6 as prescribed . See us back or go to ER right away should get worse or develop any new symptoms or complaints Chronic pe lvic pain of female 924145479 R10.2 Intermitte nt b.l. pelvic pain for last 2-3 yrs. Will refer to gynecologi st. I recommende d she should seek an immediate medical attention i.e. go to the hospital emergency department (ER) right away should get pelvic pain again or any other complaints or symptoms. [id number] [facility] [address] [place] [address] 07/14/2022 12:58:50 07/14/2022 14:12:50 Patient medical record not available [id number] Z76.89 Abnormal urine odor 8769 003 R82.90 Acute urin bryson tract infection 607946993 N39.0 Sensation as if urinary bladder still full 492986815 R39.14 [id number] [facility] [address] [place] [address] 07/28/2022 08:05:51 07/28/2022 09:33:30 Sensation as if urinary bladder still full 465646476 R39.14 07/28/22- empties well on us and PVR cath. Recurrent urinary tract infection 902100025 N39.0 -Urine sent today for PCR urine testing through [facility] for bacterial, fungal UTI panel. Patient id dical record not available [id number] Z76.89 -requested and pending. Overactive urinary bladder 493282155 N32.81 Mixed urin bryson incontinence 913335029 N39.46 Fatigue 19442413 R53.83 Body mass index 40+ - severely obese 892347201 Z68.41 Morbid obesity 370551632 E66.01 Pain of mu ltiple joints 52808403 M25.50 Vaginal discharge 870943 006 N89.8 [id number] [facility] [address] [place] [address] 01/10/2023 08:47:21 01/10/2023 10:51:37 Recurrent urinary tract infection 318747850 N39.0 -Urine sent today for PCR urine testing through [facility] for bacterial, fungal UTI panel. Sensation as if urinary bladder still full 632050802 R39.14 07/28/22- empties well on us and PVR cath. Overactive urinary bladder 092358800 N32.81 Mixed urin bryson incontinence 832580162 N39.46 Body mass index 40+ - severely obese 186164523 Z68.41 Morbid obesity 551876987 E66.01 Liver enzy mes level above reference range 627868057 R74.01 Erythrocyt e sedimentation rate outside reference range 257473363 R71.8 Vitamin D deficiency 347 63913 E55.9 Screening for malignant neoplasm of cervix 525751635 Z12.4 [id number] [facility] [address] [place] [address] 07/25/2023 08:00:02 07/25/2023 09:28:21 Recurrent urinary tract infection 298093850 N39.0 Sensation as if urinary bladder still full 657771660 R39.14 07/28/22- empties well on us and PVR cath. Overactive urinary bladder 089900861 N32.81 Mixed urin bryson incontinence 621472519 N39.46 Body mass index 40+ - severely obese 343614884 Z68.41 Morbid obesity 961742569 E66.01 Screening for malignant neoplasm of cervix 201926671 Z12.4 Acute urin bryson tract infection 334743656 N39.0 Venereal d isease screening 000965042 Z11.3 [id number] Mine Hays[facility] [address] [place] [address] 06/03/2024 08:14:39 06/03/2024 08:46:48 Pilar cyst of scalp 078118126 L72.11 Acutely infected, will send in continued [...] Body mass index 40+ - severely obese 080142708 Z68.45 [id number] Reid Adam APRN [address] [address] 02/23/2025 08:46:03 02/23/2025 10:26:12 Genuine stress incontinence 14277347 N39.3 81211 pad order sent Health Concerns Section Related Observation LastModified by Organization Detai ls LastModified Time None Recorded Concern Status LastModified by Organization Details LastModified Time None Recorded Advance Directives Directive N: Payers Insurance Date Sequence Insurance Name Policy Number Policy Gill Covered Member ID Gill Member ID Guarantor Name 02/21/2025 1 [employer] [facility] (MEDICAID HMO) Dorita Baker [id number] Dorita Baker 02/23/2025 [place] [facility] [employer] ([place]ICAID) Dorita Baker [id number] Dorita Baker Notes Date Note Type Note Provider Name and Address Organization Details Recorded Time 07/28/2022 text/html Lower Urinary Tr act Symptoms [...] 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 Saw cardio- Dr Burgos- states he told [...] had high urea. took cephalexin. Anita Rangel, CATALOG LIBRARY ASSISTANT [address], [place], [address], [place] - [facility] 01/17/2023 11:28:10 07/25/2023 text/html [...] negative. 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 07/25/23comes to followup Still has not established a PCP.also did not see SORTER LUMBER STRAIGHTENER for her annual.has gained 27lbs in the [...] them. single mom. [place] grandmother had stroke and is paralyzed. grandfather has cancer as well. Anita Claire, CATALOG LIBRARY ASSISTANT [address], [place], [address], [place] - [facility] 11/01/2023 16:59:09 06/03/2024 text/html ROS as noted in the HPI Went to ED at [facility] in [place], will send records request. States she has had a cyst on her head, was having pain, right sided head pain. States the SEATING AND MOBILITY TECHNOLOGIST put a large bore needle in to start the draining process, starts to drain a few days later. Greenish-yellow drainage, currently on ABX. Started on Sunday, has 7 days worth. Denies any fevers during this time. Mine Hays, DO [address], [place], [address], [place] - [facility] 06/03/2024 15:29:50 02/23/2025 text/html ROS as noted in the HPI 34 year old female who presents to the office today with concerns of incontinence--ongoing for a long time. see specialist years ago and went to pelvic floor training still having accidents. would like order to help cover pads. Reid Adam, CATALOG LIBRARY ASSISTANT [address], [place], [address], [place] - [facility] 02/23/2025 11:14:13 OBGyn Episode No OBEpisode recorded.
[2025-03-13 08:13] VITALS: BMI 40.7
[2025-03-13 09:03] LABS: Urine Pregnancy, HCG Qual. Negative (Negative)
[2025-03-13 09:04] LABS: Hematocrit 38.4 % (37.0-47.0); Hemoglobin 11.9 g/dL (12.2-16.2); Mean Corpuscular HGB Conc 31.0 g/dL (31.8-35.4); Mean Corpuscular Hemoglobin 23.7 pg (27.0-31.2); Mean Corpuscular Volume 76.5 fl (81-99); Platelet Count 255 K/mm3 (142-424); Red Blood Count 5.02 M/mm3 (4.20-5.40); White Blood Count 6.7 K/mm3 (4.8-10.8)
[2025-03-13 09:10] LABS: Anion Gap 12.1 mEq/L (5-15); Blood Urea Nitrogen 13 mg/dl (7-17); Calcium 9.4 mg/dl (8.4-10.2); Carbon Dioxide 28 mmol/L (22.0-30.0); Chloride 100 mmol/L (98-107); Creatinine Clearance Estimated 211 mL/min (50-200); Creatinine,Serum 0.70 mg/dl (0.52-1.04); Estimated Glomerular Filt Rate 96 ml/min (>60); GFR (African American) 116 ML/MIN (>60); Glucose 105 mg/dl (74-100); Potassium 4.1 mmoL/L (3.5-5.1); Sodium 136 mmol/L (136-145)
[2025-03-13 09:35] LABS: Microcytosis 1+; Total Cells Counted 100
== END 2025-03-13 23:59 | disposition home or self-care (01) ==
LOC: PREOP 08:04
PROVIDERS: PCP Family Medicine; Visit Provider Student in an Organized Health Care Education/Training Program
DX: Z01.812 Encounter for preprocedural laboratory examination (principal)
CPT/HCPCS: 80048; 81025; 85007; 85014; 85018; 85048; 85049

== ENCOUNTER → 2025-03-17 06:35 | Day surgery (SDC) | payer OTHER, SELFPAY ==
[2025-03-13 11:07] VITALS: BMI 40.7
--- NOTE | 2025-03-17 07:35 | SUR.PREOP ---
pt decided against having surgery today. Pt refused to talk to MD Clayton, just wanted to reschedule when she is ready
== END ==
LOC: OR 06:35
PROVIDERS: PCP Family Medicine; Visit Provider Student in an Organized Health Care Education/Training Program
DX: Z01.818 Encounter for other preprocedural examination (principal)